=== PATIENT | female | born 1955 | race Caucasian/White ===

== ENCOUNTER 2020-04-23 05:38 | Emergency (ER) | payer MEDICAID, SELFPAY ==
[2020-04-23 05:43] VITALS: BP 188/129; PULSE 114; RESP 26; TEMP 36.6; O2SAT 96; BMI 36.0
[2020-04-23 06:16] VITALS: BP 168/101; PULSE 104; RESP 20; O2SAT 94; O2SAT 97
--- NOTE | 2020-04-23 06:16 | XR_ITS ---
WS: [id number] Portable AP upright chest, 04/23/2020 Clinical Data: cough/dyspnea Comparison: PA and lateral chest, 07/20/2007. Findings: The heart is slightly enlarged. The pulmonary vascularity is increased. No nodules, masses or effusions are seen. No definite pneumonia is present. Monitor leads are on the chest wall. XR/XR chest 1V portable [id number] Impression: Cardiomegaly with pulmonary vascular congestion.
[2020-04-23 06:26] LABS: Basophils # 0.1 10^3/uL (0.0-0.1); Basophils % 0.7 %; Eosinophils # 0.2 10^3/uL (0.0-0.8); Eosinophils % 2.4 %; Hematocrit 40.4 % (37.0-47.0); Hemoglobin 12.9 g/dL (11.5-15.3); Lymphocytes # 2.5 10^3/uL (0.8-4.8); Lymphocytes % 34.8 %; Mean Corpuscular HGB Conc 31.9 g/dL (30.0-36.0); Mean Corpuscular Hemoglobin 28.3 pg (28.0-34.0); Mean Corpuscular Volume 88.6 fL (81-99); Mean Platelet Volume 11.1 fL (7.4-10.4); Monocytes # 0.5 10^3/uL (0.2-0.9); Neutrophils # 3.91 10^3/uL (1.8-7.7); Neutrophils % 54.8 %; Nucleated Red Blood Cells % 0 %; Platelet Count 218 10^3/cmm (130-400); Red Blood Count 4.56 10^6/uL (4.1-5.3); Red Cell Distribution Width 14.2 % (12.1-15.1); White Blood Count 7.1 10^3/uL (4.0-10.0)
[2020-04-23 06:46] LABS: Alanine Aminotransferase 37 U/L (0-33); Alkaline Phosphatase 163 IU/L (35-105); Anion Gap 15.9 (5-19); Aspartate Amino Transferase 37 U/L (0-32); Blood Urea Nitrogen 14 mg/dL (8-23); Calcium 9.4 mg/dL (8.5-10.5); Carbon Dioxide 24 mmol/L (22-29); Chloride 104 mmol/L (98-107); Creatinine Clr Calc Pharmacy 107.4495; Globulin 3.3 g/dL (1.3-4.6); Glucose 132 mg/dL (65-115); Osmolality Calculated 292 mOsm/kg (285-295); Potassium 3.9 mmol/L (3.5-5.1); Sodium 140 mmol/L (136-145); Total Bilirubin 0.3 mg/dL (0.15-1.2); Total Protein 7.3 g/dL (6.6-8.7)
--- NOTE | 2020-04-23 06:47 | CT_ITS ---
WS: [id number] CTA OF THE CHEST WITH PULMONARY EMBOLISM PROTOCOL TECHNIQUE: High-resolution contrast enhanced CTA of the chest with coronal and sagittal reformatted i mages with pulmonary embolism protocol. MIP images are also reviewed. CLINICAL INFORMATION: sudden onset dyspnea COMPARISON: None. DLP: 514.[address] scans at [facility] use at least one of these dose optimization techniques: automat ed exposure control; mA and/or kV adjustment per patient size (includes targeted exams where dose is matched to clinical indication); or iterative reconstruction. FINDINGS: Proximal main pulmonary arteries are normal. Segmental and subsegmental pulmonary arteries are patent . No evidence of pulmonary embolus. Small bilateral pleural effusions right greater than left. Bibasi lar atelectasis. Normal caliber thoracic aorta. No focal consolidation. Prominent AP window and anter ior mediastinal lymph nodes nonspecific but likely reactive. Mild bilateral bronchovascular thickenin g. No axillary lymphadenopathy. Adrenal glands are normal. Fatty atrophy of the pancreas. Small esoph ageal hiatal hernia. Mild thoracic kyphosis with ankylosis thoracic spine. CT/CT angio chest PE protcl [id number] IMPRESSION: 1. Proximal main pulmonary arteries are normal. No evidence of pulmonary embol us. 2. Small right greater than left pleural effusions with bibasilar atelectasis. 3. Prominent AP window and mediastinal lymph nodes nonspecific but likely reac tive. Bilateral bronchovascular thickening. 4. No focal pneumonia.
--- NOTE | 2020-04-23 06:47 | ED_ITS ---
HPI - COVID General: Chief Complaint: COVID symptoms Stated Complaint: sob Time Seen by Provider: 04/23/20 06:02 Triage information: Has fever, cough or shortness of breath . No known COVID + exposure last 14 days History of Present Illness: HPI Narrative: 64-year-old female reports having had onset of flulike symptoms 4 days ago with cough myalgias fever fatigue. She had a 1 or 2 days of diarrhea. The cough is been increasing since then. This morning at 4 AM she suddenly became very short of breath and anxious. She does have a sense of impending doom in the emergency room. She has mild chest discomfort. She denies any vomiting or diarrhea. She is obese hypertensive but she denies being diabetic. She has a history of breast cancer with a lumpectomy and lymph node dissection on the right approximately 18 to 20 years ago. MD complaint: has COVID symptoms Prior covid testing: no COVID 19 common symptoms: positive fever(s), chills, cough, dyspnea, fatigue, body aches, nasal congestion and diarrhea COVID 19 other sytmptoms: positive chest pain Onset (ago): day(s) (4) Pertinent comorbid conditions: hypertension and cancer (History of breast cancer 18 to 20 years ago) Treatment prior to arrival: none COVID Results: SARS-CoV-2 Antigen (Rapid) Negative (Negative) 04/23/20 06:50 04/23/20 Nasal/Oral Coronavirus 2019 PCR Negative 04/23/20 08:51 04/23/20 Review of Systems Const: Reports: fever(s), chills, body aches and fatigue ENMT: Reports: nasal congestion Card: Reports: chest pain Resp: Reports: dyspnea GI: Reports: diarrhea : Denies: flank pain, difficulty voiding, dysuria, urinary frequency or urinary urgency Skin/Breast: Denies: rash or pruritus PFSH ED PFSH: Medical History (Updated 04/23/20 @ 08:55 by Jose Kemp DO) Breast cancer Hypertension Surgical History (Updated 04/23/20 @ 06:51 by Jose Kemp DO) H/O lumpectomy History of lymph node dissection of right axilla Physical Exam Const: COMMON NORMALS: no acute distress GENERAL APPEARANCE: cooperative and comfortable ORIENTATION/CONSCIOUSNESS: Yes awake, Yes oriented to person, Yes oriented to place and Yes oriented to time HENMT: COMMON NORMALS: normocephalic, atraumatic and hearing grossly normal bilaterally HEAD & SCALP: normocephalic and atraumatic Eye: COMMON NORMALS: Equal, round and reactive pupils present, EOMs intact bilaterally, conjunctivae normal and no scleral icterus CONJUNCTIVA: Yes conjunctivae normal PUPIL: Yes Equal, round and reactive pupils present Neck/C-Spine: COMMON NORMALS: full ROM, no lymphadenopathy, supple and no JVD Lymph: LYMPHATIC: no lymphadenopathy noted and no lymphedema noted Resp: EFFORT & INSPECTION: Yes tachypneic AUSCULTATION: rales bilateral and wheezes Cardio: COMMON NORMALS: no JVD, regular rate, regular rhythm and No murmurs present (Cardio) RATE: regular rate RHYTHM: regular rhythm GI: COMMON NORMALS: Soft to palpation and No hepatosplenomegaly present AUSCULTATION: Yes normoactive bowel sounds PALPATION: Yes Soft to palpation, No Tenderness to palpation present (GI), No Guarding due to palpation present (GI) and Yes No hepatosplenomegaly present Extremity: COMMON NORMALS: normal to inspection, capillary refill normal, no clubbing, cyanosis or edema, no calf tenderness and no pedal edema Neuro: SENSORIUM/ORIENTATION: Yes oriented to person, Yes oriented to place and Yes oriented to time Skin: COMMON NORMALS: no rashes or lesions noted GENERAL SKIN EXAM: no rashes or lesions noted Course Vital Signs: Vital signs: Vital Signs Temperature 99.0 F 04/23/20 09:13 Pulse Rate 56 L 04/23/20 09:13 Respiratory Rate 20 H 04/23/20 09:13 Blood Pressure 172/100 04/23/20 09:13 Pulse Oximetry 94 04/23/20 09:13 MDM - COVID MDM Narrative Medical decision making narrative: Discharge home with amlodipine and will follow up with her with the results are available for Covid testing. Asked her to self quarantine until that time follow-up with her blood pressure within the next 1 week. Lab Data Result diagrams: 04/23/20 06:15 04/23/20 06:15 Labs: Lab Results 04/23/20 04/23/20 04/23/20 Range/Units 06:15 06:15 06:15 WBC 7.1 (4.0-10.0) 10^3/uL RBC 4.56 (4.1-5.3) 10^6/uL Hgb 12.9 (11.5-15.3) g/dL Hct 40.4 (37.0-47.0) % MCV 88.6 (81-99) fL MCH 28.3 (28.0-34.0) pg MCHC 31.9 (30.0-36.0) g/dL RDW 14.2 (12.1-15.1) % Plt Count 218 (130-400) 10^3/cmm MPV 11.1 H (7.4-10.4) fL Neut % (Auto) 54.8 % Lymph % (Auto) 34.8 % Dolores % (Auto) 7.0 % Eos % (Auto) 2.4 % Baso % (Auto) 0.7 % Neut # (Auto) 3.91 (1.8-7.7) 10^3/uL Lymph # (Auto) 2.5 (0.8-4.8) 10^3/uL Dolores # (Auto) 0.5 (0.2-0.9) 10^3/uL Eos # (Auto) 0.2 (0.0-0.8) 10^3/uL Baso # (Auto) 0.1 (0.0-0.1) 10^3/uL Nucleated RBC % (auto) 0 % Nucleated RBCs # 0.0 /100WBC D-Dimer 0.67 H (0-0.59) ug/mIFEU Specimen Type Sample Site ABG pH (7.35-7.45) ABG pCO2 (35-45) mmHg ABG pO2 (80.0-100.0) mmHg ABG HCO3 (22-26) mmol/L ABG Base Excess (-2.0-2.0) mmol/L Marquez Test Hematocrit (37-47) % O2 Delivery Device FiO2 % Manager Post ID Sodium 140 (136-145) mmol/L Potassium 3.9 (3.5-5.1) mmol/L Chloride 104 (98-107) mmol/L Carbon Dioxide 24 (22-29) mmol/L Anion Gap 15.9 (5-19) BUN 14 (8-23) mg/dL Creatinine 0.6 (0.5-0.9) mg/dL GFR Calculation 101.0 (90-130) mL/min Glucose 132 H (65-115) mg/dL Calculated Osmolality 292 (285-295) mOsm/kg Calcium 9.4 (8.5-10.5) mg/dL Total Bilirubin 0.3 (0.15-1.2) mg/dL AST 37 H (0-32) U/L ALT 37 H (0-33) U/L Alkaline Phosphatase 163 H (35-105) IU/L Total Protein 7.3 (6.6-8.7) g/dL Albumin 4.0 (3.5-5.2) g/dL Globulin 3.3 (1.3-4.6) g/dL Nasal/Oral COVID-19 PCR Influenza Type A Ag (Negative) Influenza Type B Ag (Negative) SARS-CoV-2 Ag (Rapid) (Negative) 04/23/20 04/23/20 04/23/20 Range/Units 06:25 06:50 07:24 WBC (4.0-10.0) 10^3/uL RBC (4.1-5.3) 10^6/uL Hgb (11.5-15.3) g/dL Hct (37.0-47.0) % MCV (81-99) fL MCH (28.0-34.0) pg MCHC (30.0-36.0) g/dL RDW (12.1-15.1) % Plt Count (130-400) 10^3/cmm MPV (7.4-10.4) fL Neut % (Auto) % Lymph % (Auto) % Dolores % (Auto) % Eos % (Auto) % Baso % (Auto) % Neut # (Auto) (1.8-7.7) 10^3/uL Lymph # (Auto) (0.8-4.8) 10^3/uL Dolores # (Auto) (0.2-0.9) 10^3/uL Eos # (Auto) (0.0-0.8) 10^3/uL Baso # (Auto) (0.0-0.1) 10^3/uL Nucleated RBC % (auto) % Nucleated RBCs # /100WBC D-Dimer (0-0.59) ug/mIFEU Specimen Type Arterial Sample Site Radial, left ABG pH 7.45 (7.35-7.45) ABG pCO2 35.4 (35-45) mmHg ABG pO2 63.6 L (80.0-100.0) mmHg ABG HCO3 24.4 (22-26) mmol/L ABG Base Excess 0.7 (-2.0-2.0) mmol/L Marquez Test Pos Hematocrit 40.8 (37-47) % O2 Delivery Device Room air FiO2 21.0 % Manager Post ID Duner Sodium (136-145) mmol/L Potassium (3.5-5.1) mmol/L Chloride (98-107) mmol/L Carbon Dioxide (22-29) mmol/L Anion Gap (5-19) BUN (8-23) mg/dL Creatinine (0.5-0.9) mg/dL GFR Calculation (90-130) mL/min Glucose (65-115) mg/dL Calculated Osmolality (285-295) mOsm/kg Calcium (8.5-10.5) mg/dL Total Bilirubin (0.15-1.2) mg/dL AST (0-32) U/L ALT (0-33) U/L Alkaline Phosphatase (35-105) IU/L Total Protein (6.6-8.7) g/dL Albumin (3.5-5.2) g/dL Globulin (1.3-4.6) g/dL Nasal/Oral COVID-19 PCR Influenza Type A Ag Negative (Negative) Influenza Type B Ag Negative (Negative) SARS-CoV-2 Ag (Rapid) Negative (Negative) 04/23/20 Range/Units 08:51 WBC (4.0-10.0) 10^3/uL RBC (4.1-5.3) 10^6/uL Hgb (11.5-15.3) g/dL Hct (37.0-47.0) % MCV (81-99) fL MCH (28.0-34.0) pg MCHC (30.0-36.0) g/dL RDW (12.1-15.1) % Plt Count (130-400) 10^3/cmm MPV (7.4-10.4) fL Neut % (Auto) % Lymph % (Auto) % Dolores % (Auto) % Eos % (Auto) % Baso % (Auto) % Neut # (Auto) (1.8-7.7) 10^3/uL Lymph # (Auto) (0.8-4.8) 10^3/uL Dolores # (Auto) (0.2-0.9) 10^3/uL Eos # (Auto) (0.0-0.8) 10^3/uL Baso # (Auto) (0.0-0.1) 10^3/uL Nucleated RBC % (auto) % Nucleated RBCs # /100WBC D-Dimer (0-0.59) ug/mIFEU Specimen Type Sample Site ABG pH (7.35-7.45) ABG pCO2 (35-45) mmHg ABG pO2 (80.0-100.0) mmHg ABG HCO3 (22-26) mmol/L ABG Base Excess (-2.0-2.0) mmol/L Marquez Test Hematocrit (37-47) % O2 Delivery Device FiO2 % Manager Post ID Sodium (136-145) mmol/L Potassium (3.5-5.1) mmol/L Chloride (98-107) mmol/L Carbon Dioxide (22-29) mmol/L Anion Gap (5-19) BUN (8-23) mg/dL Creatinine (0.5-0.9) mg/dL GFR Calculation (90-130) mL/min Glucose (65-115) mg/dL Calculated Osmolality (285-295) mOsm/kg Calcium (8.5-10.5) mg/dL Total Bilirubin (0.15-1.2) mg/dL AST (0-32) U/L ALT (0-33) U/L Alkaline Phosphatase (35-105) IU/L Total Protein (6.6-8.7) g/dL Albumin (3.5-5.2) g/dL Globulin (1.3-4.6) g/dL Nasal/Oral COVID-19 PCR Negative Influenza Type A Ag (Negative) Influenza Type B Ag (Negative) SARS-CoV-2 Ag (Rapid) (Negative) COVID Results: SARS-CoV-2 Antigen (Rapid) Negative (Negative) 04/23/20 06:50 04/23/20 Nasal/Oral Coronavirus 2019 PCR Negative 04/23/20 08:51 04/23/20 Discharge Plan Discharge Patient Disposition: Home Clinical Impression: Hypertension, Suspected severe acute respiratory syndrome coronavirus 2 (SARS-CoV-2) infection Condition: Stable Prescriptions: New amlodipine 5 mg tablet 5 mg PO DAILY Qty: 30 RF: 0 Discharge Orders: Discharge Order (Routine); Ordered 04/23/20 Ordered By: Jose Kemp Activity Restrictions/Additional Instructions: Your tested for COVID-19 today. We asked that you remain self quarantined until the results are back. If you have worsening difficulty with breathing return. Your blood pressure is also elevated you were given a prescription for amlodipine 5 mg daily. You should follow-up with your primary care doctor blood pressure for adjustment of medications if not yet at goal. Coding Level of Care Code ED It Integration Architect for Arias Fwd Exam Comprehensive
[2020-04-23 07:16] VITALS: BP 219/89; PULSE 95; RESP 20; O2SAT 93
--- NOTE | 2020-04-23 07:18 | PC.NURSE ---
Received report assumed care. No changes noted from report. Pt is anxious, informed pt of tests, procedures and reason for IV's.
[2020-04-23 07:29] LABS: Influenza A by IFA Negative (Negative); Influenza B by IFA Negative (Negative)
[2020-04-23 07:34] LABS: ABG PCO2 35.4 mmHg (35-45); ABG PH Result 7.45 (7.35-7.45); Arterial Blood Gas Hematocrit 40.8 % (37-47); Base Excess ABG 0.7 mmol/L (-2.0-2.0); Blood Gas Allen Test Pos; Blood Gas Sample Site Radial, left; Blood Gas Sample Type Arterial; HCO3 ABG 24.4 mmol/L (22-26); Oxygen Device ROOM AIR; PO2 ABG 63.6 mmHg (80.0-100.0)
[2020-04-23 08:09] LABS: SARS Covid-2 Antigen Negative (Negative)
[2020-04-23] MEDS: iohexol 350 mg/mL 100 mL Btl IV (08:13)
[2020-04-23 08:39] VITALS: BP 172/100; PULSE 78; RESP 16; O2SAT 93
[2020-04-23 08:56] VITALS: BP 172/100
[2020-04-23] MEDS: amlodipine 5 mg Tablet PO (08:56)
[2020-04-23] MEDS: cloNIDine 0.1 mg Tablet PO (08:56)
--- NOTE | 2020-04-23 09:05 | ECG_ITS ---
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 Measurements Intervals [place] Rate: 103 P: 59 ME: 163 QRS: -21 QRSD: 127 T: 95 QT: 373 QTc: 488 Interpretive Statements SINUS TACHYCARDIA LEFT BUNDLE BRANCH BLOCK [120+ ms QRS DURATION, 80+ ms Q/S IN V1/V2, 85+ ms R IN I/aVL/V5/V6] No previous ECG available for comparison Electronically Signed On 04-23-2020 10:12:10 MANAGER MATH by Amador Nicolas M.D. [id number] f
[2020-04-23 09:13] VITALS: BP 172/100; PULSE 56; RESP 20; TEMP 37.2; O2SAT 94
[2020-04-23 13:33] LABS: D Dimer 0.67 ug/mIFEU (0-0.59)
[2020-04-25 09:07] LABS: Coronavirus Lab Test PTC Negative
--- NOTE | 2020-04-25 17:05 | PC.NURSE ---
left message for pt to contact ER to receive COVID results
--- NOTE | 2020-04-26 08:48 | PC.NURSE ---
Pt called and notified of negative COVID results.
== END 2020-04-23 09:15 | disposition home or self-care (01) ==
PROVIDERS: Emergency Provider Family Medicine
DX: Z20.828 Contact with and (suspected) exposure to other viral communicable diseases (principal); I10 Essential (primary) hypertension; Z85.3 Personal history of malignant neoplasm of breast
CPT/HCPCS: 12345; 36600; 71045; 71275; 80053; 82803; 85025; 85378; 87426; 87635; 87804; 93005; 99283; 99284; Q9967

== ENCOUNTER 2020-09-27 19:33 | Emergency (ER) | payer MEDICAID, SELFPAY ==
[2020-09-27 19:44] VITALS: BP 165/119; PULSE 116; RESP 18; TEMP 36.7; O2SAT 94; BMI 32.3
--- NOTE | 2020-09-27 20:22 | ECG_ITS ---
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 Measurements Intervals [place] Rate: 112 P: 55 ID: 128 QRS: -10 QRSD: 128 T: 112 QT: 358 QTc: 491 Interpretive Statements SINUS TACHYCARDIA POSSIBLE LEFT ATRIAL ENLARGEMENT [-0.1mV P WAVE IN V1/V2] LEFT BUNDLE BRANCH BLOCK [120+ ms QRS DURATION, 80+ ms Q/S IN V1/V2, 85+ ms R IN I/aVL/V5/V6] Compared to ECG 04/23/2020 06:02:27 No significant changes Electronically Signed On 09-28-2020 10:50:48 CDT by Kenya Powell M.D. [id number] f
--- NOTE | 2020-09-27 20:22 | XRR_ITS ---
PROCEDURE INFORMATION: Exam: XR Chest Exam date and time: 09/27/2020 8:23 PM Age: 65 years old Clinical indication: Dyspnea; Additional info: SOB TECHNIQUE: Imaging protocol: XR of the chest. Views: 1 view. COMPARISON: CR XR chest 1V portable [id number] 04/23/2020 6:22 AM FINDINGS: Lungs: There is indistinctness and mild prominence of the pulmonary vasculature and increased interstitial markings present bilaterally, findings suggesting pulmonary edema. Pleural spaces: Unremarkable. No pleural effusion. No pneumothorax. Heart/Mediastinum: Unremarkable. No cardiomegaly. Bones/joints: Unremarkable. XR/XR chest 1V portable [id number] IMPRESSION: Mild prominence and indistinctness of the pulmonary vasculature and increased interstitial opacities, findings that may represent pulmonary edema.
--- NOTE | 2020-09-27 21:26 | ED_ITS ---
HPI - SOB/Dyspnea General: Chief Complaint: Shortness of Breath/Dyspnea Stated Complaint: DIFFICULTY BREATHING Time Seen by Provider: 09/27/20 21:19 Source: patient Mode of arrival: ambulatory Limitations: no limitations History of Present Illness: HPI Narrative: 65-year-old female who states that she been having increasing shortness of breath over the last 5 days. She states she gets dyspneic anytime she ambulates with any exertion. She states she also gets short of breath when laying flat. She denies any chest pain. She denies any known history of heart or lung issues. She does have chronic high blood pressure states her doctor quit 1 year ago and is she has not been taking her blood pressure medicines and has not seen a physician since then. She denies any cough or fever. MD elicited complaint: shortness of breath Associated symptoms: Deny abdominal pain, chest pain, fever(s), nausea or vomiting Review of Systems Const: Denies: fever(s), chills, body aches or change in appetite Eyes: Denies: blurry vision or eye discomfort ENMT: Denies: throat pain or dental pain Card: Denies: chest pain Resp: Reports: dyspnea GI: Denies: abdominal pain, nausea, vomiting or diarrhea : Denies: dysuria Musc: Denies: neck pain or back pain Skin/Breast: Denies: rash Neuro: Denies: headache(s) Psych: Denies: depression Alfredo/Lymph: Denies: easy bruising All/Imm: Denies: urticaria PFSH ED PFSH: Medical History (Updated 09/28/20 @ 00:40 by Jatinder Izaguirre MD) Breast cancer Hypertension Surgical History (Updated 04/23/20 @ 06:51 by Jose Kemp DO) H/O lumpectomy History of lymph node dissection of right axilla Physical Exam Const: COMMON NORMALS: no acute distress, patient oriented x3 and healthy appearing HENMT: COMMON NORMALS: normocephalic and atraumatic HEAD & SCALP: normoceph alic and atraumatic Eye: COMMON NORMALS: Equal, round and reactive pupils present and EOMs intact bilaterally PUPIL: Yes Equal, round and reactive pupils present Neck/C-Spine: COMMON NORMALS: full ROM and supple Chest: COMMONS NORMALS: normal inspection of the chest and normal palpation of entire chest wall Resp: COMMON NORMALS: normal respiratory effort, No retractions, No use of accessory muscles and clear to auscultation bilaterally AUSCULTATION: clear to auscultation bilaterally Cardio: COMMON NORMALS: regular rate, regular rhythm and No murmurs present (Cardio) RATE: regular rate RHYTHM: regular rhythm GI: COMMON NORMALS: Normal to inspection, nondistended, normoactive bowel sounds present, Soft to palpation, non-tender and no masses PALPATION: Yes Soft to palpation Extremity: COMMON NORMALS: normal to inspection and full ROM Neuro: COMMON NORMALS: patient oriented x3, moves all extremities and no focal motor deficits Psych: COMMON NORMALS: mental status grossly normal, Normal thought process present and cooperative THOUGHT PROCESS: Normal thought process present Skin: COMMON NORMALS: no rashes or lesions noted and no wounds GENERAL SKIN EXAM: no rashes or lesions noted Course Vital Signs: Vital signs: Vital Signs Temperature 98.1 F 09/27/20 19:44 Pulse Rate 87 09/28/20 00:48 Respiratory Rate 19 H 09/28/20 00:48 Blood Pressure 181/108 09/28/20 00:48 Pulse Oximetry 99 09/28/20 00:48 MDM - SOB/Dyspnea MDM Narrative: Medical decision making narrative: Patient presents here with dyspnea. Her scan here shows a possible pneumonia. Her BNP is little elevated with her symptoms of concern of possible mild CHF. I spoke to her and recommended admission for echo. She is refusing admission states she feels much improved after the Lasix here. We will start her on Lasix at home along with an antibiotic. We will get her follow-up outpatient. I informed her if she has any worsening she is return immediately. She understands agrees to plan. Lab Data: Labs: Lab Results 09/27/20 09/27/20 09/27/20 Range/Units 21:39 21:39 21:39 WBC 9.5 (4.0-10.0) 10^3/ uL RBC 4.49 (4.1-5.3) 10^6/u L Hgb 12.7 (11.5-15.3) g/dL Hct 39.8 (37.0-47.0) % MCV 88.6 (81-99) fL MCH 28.3 (28.0-34.0) pg MCHC 31.9 (30.0-36.0) g/dL RDW 14.5 (12.1-15.1) % Plt Count 243 (130-400) 10^3/c mm MPV 11.3 H (7.4-10.4) fL Neut % (Auto) 57.9 % Lymph % (Auto) 31.6 % Power % (Auto) 8.1 % Eos % (Auto) 1.4 % Baso % (Auto) 0.8 % Neut # (Auto) 5.52 (1.8-7.7) 10^3/u L Lymph # (Auto) 3.0 (0.8-4.8) 10^3/u L Power # (Auto) 0.8 (0.2-0.9) 10^3/u L Eos # (Auto) 0.1 (0.0-0.8) 10^3/u L Baso # (Auto) 0.1 (0.0-0.1) 10^3/u L Nucleated RBC % (a uto) 0 % Nucleated RBCs # 0.0 /100WBC D-Dimer 0.92 H (0-0.59) ug/mIFE U Sodium 144 (136-145) mmol/L Potassium 4.2 (3.5-5.1) mmol/L Chloride 108 H (98-107) mmol/L Carbon Dioxide 24 (22-29) mmol/L Anion Gap 16.2 (5-19) BUN 16 (8-23) mg/dL Creatinine 0.6 (0.5-0.9) mg/dL GFR Calculation 100.6 (90-130) mL/min Glucose 116 H (65-115) mg/dL Calculated Osmolal ity 300 H (285-295) mOsm/k g Calcium 9.1 (8.5-10.5) mg/dL Total Bilirubin 0.4 (0.15-1.2) mg/dL AST 30 (0-32) U/L ALT 48 H (0-33) U/L Alkaline Phosphata se 155 H (35-105) IU/L Troponin T Baselin e (0-10) ng/L NT-Pro-B Natriuret Pep 1606 H (0-125) pg/mL Total Protein 7.1 (6.6-8.7) g/dL Albumin 4.2 (3.5-5.2) g/dL Globulin 2.9 (1.3-4.6) g/dL 09/27/20 Range/Units 21:39 WBC (4.0-10.0) 10^3/ uL RBC (4.1-5.3) 10^6/u L Hgb (11.5-15.3) g/dL Hct (37.0-47.0) % MCV (81-99) fL MCH (28.0-34.0) pg MCHC (30.0-36.0) g/dL RDW (12.1-15.1) % Plt Count (130-400) 10^3/c mm MPV (7.4-10.4) fL Neut % (Auto) % Lymph % (Auto) % Power % (Auto) % Eos % (Auto) % Baso % (Auto) % Neut # (Auto) (1.8-7.7) 10^3/u L Lymph # (Auto) (0.8-4.8) 10^3/u L Power # (Auto) (0.2-0.9) 10^3/u L Eos # (Auto) (0.0-0.8) 10^3/u L Baso # (Auto) (0.0-0.1) 10^3/u L Nucleated RBC % (a uto) % Nucleated RBCs # /100WBC D-Dimer (0-0.59) ug/mIFE U Sodium (136-145) mmol/L Potassium (3.5-5.1) mmol/L Chloride (98-107) mmol/L Carbon Dioxide (22-29) mmol/L Anion Gap (5-19) BUN (8-23) mg/dL Creatinine (0.5-0.9) mg/dL GFR Calculation (90-130) mL/min Glucose (65-115) mg/dL Calculated Osmolal ity (285-295) mOsm/k g Calcium (8.5-10.5) mg/dL Total Bilirubin (0.15-1.2) mg/dL AST (0-32) U/L ALT (0-33) U/L Alkaline Phosphata se (35-105) IU/L Troponin T Baselin e 13 H (0-10) ng/L NT-Pro-B Natriuret Pep (0-125) pg/mL Total Protein (6.6-8.7) g/dL Albumin (3.5-5.2) g/dL Globulin (1.3-4.6) g/dL Imaging Data^: CXR: Attestation: I personally reviewed and interpreted this imaging study as follows: My impression: no acute abnormality EKG Data^: EKG 1: Attestation: I personally reviewed and interpreted this EKG as follows: EKG Interpretation Date: 09/27/20 EKG interpretation time: 21:33 Interpretation: sinus tach hr [address] or t wave abnormalities qrs 128 qtc 425 Discharge Plan Discharge Patient Disposition: Home Clinical Impression: Hypertension Qualifiers: Hypertension type: essential hypertension Qualified Code(s): I10 - Essential (primary) hypertension Pneumonia Qualifiers: Pneumonia type: due to unspecified organism Laterality: right Lung location: upper lobe of lung Qualified Code(s): J18.9 - Pneumonia, unspecified organism Condition: Stable Prescriptions: New Lasix 40 mg tablet 40 mg PO DAILY Qty: 30 RF: 0 doxycycline hyclate 100 mg capsule 100 mg PO BID 7 Days Qty: 14 RF: 0 No Action amlodipine 5 mg tablet 5 mg PO DAILY Qty: 30 RF: 0 Discharge Orders: Discharge ED (Routine); Ordered 09/28/20 Ordered By: Jatinder Izaguirre Discharge Diet: Advance as tolerated Discharge Activity: Resume usual activity Patient Instructions: Bacterial Pneumonia (ED), Hypertension (ED) Coding Level of Care Code ED Hospital Cleaner for Chg Fwd Exam Comprehensive
[2020-09-27 21:45] VITALS: BP 179/131; PULSE 105; RESP 17; O2SAT 91
--- NOTE | 2020-09-27 21:45 | PC.NURSE ---
EKG taken and given to Dr. Izaguirre
[2020-09-27 21:48] LABS: Basophils # 0.1 10^3/uL (0.0-0.1); Basophils % 0.8 %; Eosinophils # 0.1 10^3/uL (0.0-0.8); Eosinophils % 1.4 %; Hematocrit 39.8 % (37.0-47.0); Hemoglobin 12.7 g/dL (11.5-15.3); Lymphocytes % 31.6 %; Mean Corpuscular HGB Conc 31.9 g/dL (30.0-36.0); Mean Corpuscular Hemoglobin 28.3 pg (28.0-34.0); Mean Corpuscular Volume 88.6 fL (81-99); Mean Platelet Volume 11.3 fL (7.4-10.4); Monocytes # 0.8 10^3/uL (0.2-0.9); Monocytes % 8.1 %; Neutrophils # 5.52 10^3/uL (1.8-7.7); Neutrophils % 57.9 %; Nucleated Red Blood Cells % 0 %; Platelet Count 243 10^3/cmm (130-400); Red Blood Count 4.49 10^6/uL (4.1-5.3); Red Cell Distribution Width 14.5 % (12.1-15.1); White Blood Count 9.5 10^3/uL (4.0-10.0)
[2020-09-27 22:10] LABS: D Dimer 0.92 ug/mIFEU (0-0.59)
--- NOTE | 2020-09-27 22:11 | CTR_ITS ---
PROCEDURE INFORMATION: Exam: CTA Chest With Contrast Exam date and time: 09/27/2020 11:10 PM Age: 65 years old Clinical indication: Shortness of breath; Prior surgery; Surgery date: 6+ months; Surgery type: R lymph nodes; Patient HX: HX of breast CA C/O SOB x 5 days TECHNIQUE: Imaging protocol: Computed tomographic angiography of the chest with contrast. 3D rendering (Not supervised by radiologist): MIP and/or 3D reconstructed images were created by the technologist. Radiation optimization: All CT scans at this facility use at least one of these dose optimization techniques: automated exposure control; mA and/or kV adjustment per patient size (includes targeted exams where dose is matched to clinical indication); or iterative reconstruction. Contrast material: OMNI 350; Contrast volume: 73 ml; Contrast route: INTRAVENOUS (IV); COMPARISON: CT angio chest PE protcl [id number] 04/23/2020 8:10 AM RADIATION DOSE METRICS: Total DLP (mGy-cm): 554.17 FINDINGS: Pulmonary arteries: Normal. No pulmonary emboli. Aorta: Unremarkable. No aortic aneurysm. No aortic dissection. Lungs: Patchy ground-glass opacities are seen region. This appears new compared with 04/23/2020. Subtle ground-glass opacities are seen adjacent to the major fissure the right and superimposed over the pleural effusions bilaterally appearing stable compared with 04/23/2020. These findings likely represent bilateral atelectasis although developing right apical interstitial pneumonia cannot be excluded. Pleural spaces: There are stable bilateral pleural effusions present as well. Heart: Unremarkable. No cardiomegaly. No pericardial effusion. Lymph nodes: There are multiple mildly prominent mediastinal and hilar lymph nodes present. These appear stable compared with 04/23/2020. Bones/joints: Unremarkable. No acute fracture. Soft tissues: Unremarkable. CT/CT angio chest PE protcl [id number] IMPRESSION: 1. There is no evidence for pulmonary emboli. 2. Stable prominent mediastinal lymph nodes . 3. Stable bilateral pleural effusions and superimposing atelectasis or parenchymal or pleural scarring. 4. New patchy ground-glass opacity seen in the right apical region may represent superimposing right apical interstitial pneumonia. Radiation Dose CTDIVOL = (mGy): DLP = 554.17 (mGy-cm)
[2020-09-27 22:17] LABS: Troponin(5th) Baseline 13 ng/L (0-10)
[2020-09-27 22:18] VITALS: BP 170/126; PULSE 102; RESP 14; O2SAT 93
[2020-09-27 22:25] LABS: Alanine Aminotransferase 48 U/L (0-33); Albumin Level 4.2 g/dL (3.5-5.2); Alkaline Phosphatase 155 IU/L (35-105); Anion Gap 16.2 (5-19); Aspartate Amino Transferase 30 U/L (0-32); Blood Urea Nitrogen 16 mg/dL (8-23); Calcium 9.1 mg/dL (8.5-10.5); Carbon Dioxide 24 mmol/L (22-29); Chloride 108 mmol/L (98-107); Creatinine Clr Calc Pharmacy 107.4681; Globulin 2.9 g/dL (1.3-4.6); Glomerular Filtration Rate 100.6 mL/min (90-130); Glucose 116 mg/dL (65-115); NT Pro B Type Natriuretic Pept 1606 pg/mL (0-125); Osmolality Calculated 300 mOsm/kg (285-295); Potassium 4.2 mmol/L (3.5-5.1); Sodium 144 mmol/L (136-145); Total Bilirubin 0.4 mg/dL (0.15-1.2); Total Protein 7.1 g/dL (6.6-8.7)
[2020-09-27 22:53] VITALS: BP 174/117; PULSE 99; RESP 17; O2SAT 93
--- NOTE | 2020-09-27 23:24 | ECG_ITS ---
[facility] Test Date: 2020-09-27 Pat Name: Ellie Matthews Department: Room: Gender: Female C.O.D. 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 Measurements Intervals Sidell Rate: 102 P: 120 ID: [id number] QRS: 194 QRSD: 134 T: 109 QT: 388 QTc: 506 Interpretive Statements SINUS TACHYCARDIA ARM LEADS REVERSED [INVERTED P AND QRS IN I] INTRAVENTRICULAR CONDUCTION DELAY ABNORMAL RHYTHM ECG Compared to ECG 09/27/2020 21:33:56 Left bundle-branch block no longer present Electronically Signed On 09-28-2020 10:49:48 CDT by Kenya Powell M.D. [id number]
[2020-09-27] MEDS: iohexol 350 mg/mL 100 mL Btl IV (23:35)
[2020-09-27] MEDS: FUROsemide 10 mg/mL SDV 4mL 40 MG IVP (23:38)
[2020-09-27 23:40] VITALS: BP 184/122; PULSE 108; RESP 21; O2SAT 96
[2020-09-28 00:48] VITALS: BP 181/108; PULSE 87; RESP 19; O2SAT 99
--- NOTE | 2020-10-02 15:24 | DCPLANNER ---
plumbing manager had message to speak with patient about getting established with a primary care physician. plumbing manager spoke with patient, was told that patient would like to get established with a primary care physician. plumbing manager called [facility], spoke with Bonita, gave clinic patients information. A follow up appointment was scheduled for Thursday, October 15, 2020 at 2:[address] Ayala. plumbing manager called patient, spoke with husbands and gave him the appointment information.
--- NOTE | 2020-12-31 07:28 | DCPLANNER ---
Patient had a follow up appointment scheduled for 10.15.20 at [facility] with Dr. Ayala to establish care - patient did attend appointment.
== END 2020-09-28 00:48 | disposition home or self-care (01) ==
PROVIDERS: Emergency Provider Emergency Medicine
DX: J18.9 Pneumonia, unspecified organism (principal); I10 Essential (primary) hypertension; Z85.3 Personal history of malignant neoplasm of breast
CPT/HCPCS: 71045; 71275; 80053; 83880; 84484; 85025; 85378; 93005; 96374; 96375; 99284; J1940; Q9967

== ENCOUNTER 2020-12-23 13:25 | Outpatient (CLI) | payer MEDICAID, SELFPAY ==
--- NOTE | 2020-12-23 13:30 | USCV_ITS ---
Ellie Matthews Age: 65 Gender: F : 1955 Exam Date: 12/23/2020 13:55 Ordering Phys: Kathy Reese MD ([email or web address]) Technologist: Salome Regan Exam Location: [facility] Indication: shortness of breath BP: / HR: Rhythm: Sinus Technical Quality: Fair MEASUREMENTS (Male / Female) Normal Values 2D ECHO LV Diastolic Diameter PLAX 3.5 cm 4.2 - 5.9 / 3.9 - 5.3 cm LV Systolic Diameter PLAX 2.3 cm IVS Diastolic Thickness 1.2 cm 0.6 - 1.0 / 0.6 - 0.9 cm IVS Systolic Thickness 1.5 cm LVPW Diastolic Thickness 0.9 cm 0.6 - 1.0 / 0.6 - 0.9 cm LVPW Systolic Thickness 1.6 cm LVOT Diameter 2.0 cm LV Ejection Fraction 2D Teich 64.1 % LV Ejection Fraction MOD 2C 55.5 % LV Ejection Fraction 2C AL 58.0 % LA Diameter 3.0 cm LA Width 3.4 cm LA Height 5.4 cm RA Width 3.6 cm RA Height 4.5 cm Aorta at Sinotubular Diameter 2.9 cm M-MODE LV Diastolic Diameter MM 6.4 cm 4.2 - 5.9 / 3.9 - 5.3 cm LV Systolic Diameter MM 5.3 cm LV Ejection Fraction MM Teich 36.5 % IVS Diastolic Thickness MM 0.3 cm 0.6 - 1.0 / 0.6 - 0.9 cm IVS Systolic Thickness MM 0.9 cm LVPW Diastolic Thickness MM 0.8 cm 0.6 - 1.0 / 0.6 - 0.9 cm LVPW Systolic Thickness MM 1.3 cm Aortic Annulus Diameter 2.9 cm LA Ao Ratio MM 1.0 MV E Point Septal Separation 1.4 cm DOPPLER AV Peak Velocity 154.3 cm/s LVOT Peak Velocity 113.0 cm/s AV Area Cont Eq vti 2.0 cm squared AV Area Cont Eq pk 2.3 cm squared MV Peak Velocity 142.0 cm/s MV Area PHT 3.6 cm squared Mitral E to A Ratio 1.2 MV E' Velocity 55.0 cm/s Mitral E to MV E' Ratio 10.3 Mitral E to LV E' Lateral Ratio 7.2 Mitral E to LV E' Septal Ratio 17.9 TR Peak Velocity 80.0 cm/s TR Peak Gradient 2.6 mmHg Right Atrial Pressure 3.0 mmHg Pulmonary Artery Systolic Pressu 5.6 mmHg PV Peak Velocity 70.0 cm/s RV Acceleration Time 0.1 s RV Ejection Time 0.3 s RV AcT/ET 0.4 FINDINGS Left Ventricle Mildly increased left ventricular cavity size. Severely decreased left ventricular systolic function. Global left ventricular hypokinesis. Left ventricular ejection fraction is estimated at 36 %. Grade II/IV diastolic dysfunction, moderately elevated filling pressures. Right Ventricle The right ventricle is normal in size and function. Right Atrium The right atrium is normal in size. Left Atrium The left atrium is normal in size. Mitral Valve Moderately thickened mitral valve. Moderate mitral annular calcification. No mitral valve stenosis. Moderate mitral valve regurgitation. Aortic Valve Severe aortic valve calcification. Mild aortic valve stenosis, mean gradient 5.7 mmHg, BANDAR 2 cm squared.Mild aortic valve regurgitation. Tricuspid Valve Mild tricuspid valve regurgitation. Pulmonic Valve Structurally normal pulmonic valve without significant stenosis. There is no pulmonic regurgitation. Pericardium Normal pericardium without effusion. Aorta Normal ascending aorta dimension. CONCLUSIONS 1-Mildly increased left ventricular cavity size. Severely decreased left ventricular systolic function. Global left ventricular hypokinesis. Left ventricular ejection fraction is estimated at 36 %. Grade II/IV diastolic dysfunction, moderately elevated filling pressures. 2-Moderately thickened mitral valve. Moderate mitral annular calcification. No mitral valve stenosis. Moderate mitral valve regurgitation. 3-Severe aortic valve calcification. Mild aortic valve stenosis, mean gradient 5.7 mmHg, BANDAR 2 cm squared.Mild aortic valve regurgitation. 4-Mild tricuspid valve regurgitation. 5-There is no pericardial effusion. 6-Right atrial pressure is around 5 mm of mercury. 7-There are no prior echocardiogram studies to compare. Kathy Reese MD (Electronically Signed) Final Date: 23 December 2020 17:18 S
== END 2020-12-23 13:26 | disposition home or self-care (01) ==
LOC: US 13:29
PROVIDERS: PCP Family Medicine Adult Medicine; Visit Provider Internal Medicine Cardiovascular Disease
DX: R06.02 Shortness of breath (principal); I08.3 Combined rheumatic disorders of mitral, aortic and tricuspid valves
CPT/HCPCS: 93306

== ENCOUNTER 2021-02-04 10:37 | Outpatient (CLI) | payer MEDICAID, SELFPAY ==
[2021-02-04 11:09] VITALS: BMI 33.9
--- NOTE | 2021-02-04 11:29 | NMCV_ITS ---
NM bassam perf SPECT r/s* [id number] Ellie Matthews Age: 65 Gender: F : 1955 Exam Date: 02/04/2021 11:29 Ordering Phys: Kathy Reese MD ([email or web address]) Technologist: FIORDALIZA Ann Exam Location: [facility] Indications: CHEST PAIN STRESS TEST Please see separate stress test report in [facility] for full findings IMAGE PROTOCOL Rest/Stress 1 Lexiscan Day Radiopharmaceutical Dose (mCi) Administration Site Administered by Rest: Tc-99m 10.8 IV FIORDALIZA Rice Sestamibi Stress:Tc-99m 32.3 IV FIORDALIZA Rice Sestamibi Rest: 04-Feb-2021 60 Discovery 630 Stress: 04-Feb-2021 30 Discovery 630 0.4mg Lexiscan. Images obtained in supine and prone position. SPECT RESULTS Technical Quality: Excellent Raw Data Analysis: Normal Image Corrections: No attenuation or motion correction applied Summed Stress Score: 3 Summed Rest Score: 4 Summed Difference Score: 1 PERFUSION FINDINGS Large area of persistent decrease tracer uptake noted in basal to distal anterior and anteroseptal wall suggestive of old myocardial infarction versus scarring FUNCTIONAL RESULTS (calculated via Gated SPECT) Stress Image LV EF (%): 32 Stress EDV (mL):130 TID: 1.03 Stress ESV (mL):88 Rest Image LV EF (%): 32 FUNCTIONAL FINDINGS: There appeared to be anterior anteroseptal hypokinesis. Severely decreased ejection fraction 32% IMPRESSIONS Large area of old myocardial infarction versus scarring noted in basal to distal anterior and anteroseptal wall without significant bee-infarct ischemia. EKG segment will be documented separately. Kathy Reese MD (Electronically Signed) Final Date: 04 February 2021 20:46 S
--- NOTE | 2021-02-04 11:29 | ECG_ITS ---
[facility] Test Date: 2021-02-04 Pat Name: Ellie Matthews Department: Room: Gender: Female Biometrics Instructor: : 1955 Requested By: Kathy Reese Order Number: [id number] Amber MD: KATHY REESE Interpretive Statements NAME OF STUDY: LEXISCAN SESTAMIBI STRESS TEST INDICATION: Chest Pain, NOTE: Please note that this is the electrocardiogram portion of the Lexiscan/Sestamibi stress test. The perfusion scan will be documented separately. DATA: Baseline heart rate was 85 beats per minute. Baseline blood pressure was 136/83 millimeters of mercury. Target heart rate was 156. Maximum heart rate achieved was 107. which was 68 % of the predicted target heart rate. Maximum blood pressure was 187/83 millimeters of mercury. The reason for ending the test was completion of the protocol. The patient did not experience any symptoms. ELECTROCARDIOGRAM: BASELINE: Sinus rhythm. Normal axis. Interventricular conduction delay, possible old anterior wall myocardial infarction. Otherwise, no ST-T changes suggestive of ischemia noted. No arrhythmia noted. EXERCISE: After Lexiscan injection, no ST-T changes suggestive of ischemic noted. No arrhythmia noted. CONCLUSION: Please note due to baseline abnormality of the EKG specificity and sensitivity of the EKG portion of LexiScan MIBI stress test will be low 1. EKG not suggestive of ischemia 2. Lexiscan injection unremarkable. 3. Perfusion scan will be documented separately. Electronically Signed On 02-04-2021 21:16:41 CDT by KATHY REESE [id number]
[2021-02-04] MEDS: regadenoson 0.4 Mg/5 ml Syringe IVP (12:33)
[2021-02-04 12:44] VITALS: BP 137/74; PULSE 90
== END 2021-02-04 10:38 | disposition home or self-care (01) ==
LOC: CDL 10:39
PROVIDERS: PCP Family Medicine Adult Medicine; Visit Provider Internal Medicine Cardiovascular Disease
DX: R07.9 Chest pain, unspecified (principal); I25.2 Old myocardial infarction
CPT/HCPCS: 78452; 93017; A9500; J2785

== ENCOUNTER → 2021-03-13 10:13 | Outpatient (BNVA) | payer MEDICAID, SELFPAY | PROVIDERS: PCP Family Medicine Adult Medicine; Visit Provider Family Medicine Adult Medicine | DX: I11.0 Hypertensive heart disease with heart failure (principal); I50.22 Chronic systolic (congestive) heart failure; E66.9 Obesity, unspecified; I42.8 Other cardiomyopathies; R05.9 Cough, unspecified | CPT/HCPCS: 80053; 80061; 83036; 84443; 85025 ==

== ENCOUNTER 2021-03-27 10:28 | Outpatient (CLI) | payer MEDICAID, SELFPAY ==
--- NOTE | 2021-03-27 11:00 | MM_ITS ---
WS: [id number] BILATERAL DIGITAL DIAGNOSTIC MAMMOGRAM MAMMOGRAPHY WITH CAD CLINICAL INFORMATION: Hx of right Breast CA and surgery COMPARISON: TECHNIQUE: Bilateral CC, MLO, and ML views. FINDINGS: Scattered fibroglandular densities bilaterally. Volume loss right breast with prior lumpectomy. Paren chymal scarring in the upper right breast. Ovoid nodule along the left posterior nipple line measurin g 5 mm mid depth best seen on the MLO view. Recommend spot compression views and ultrasound. Right breast is unremarkable and unchanged. Vascular calcification. MM/[place] [id number] IMPRESSION: BI-RADS: 0-Incomplete: Need additional imaging evaluation FOLLOW UP: Need Additional Imaging Recommend left breast diagnostic mammography and ultrasound for further evaluat ion.
== END 2021-03-27 10:29 | disposition home or self-care (01) ==
PROVIDERS: PCP Family Medicine Adult Medicine; Visit Provider Family Medicine Adult Medicine
DX: Z85.3 Personal history of malignant neoplasm of breast (principal)
CPT/HCPCS: 77066

== ENCOUNTER 2021-05-22 09:32 | Outpatient (CLI) | payer MEDICARE, MEDICAID, SELFPAY ==
--- NOTE | 2021-05-22 09:30 | MM_ITS ---
WS: [id number] Exam: [place] [id number] Date/Time of Exam: 05/22/2021 9:48 AM Reason For Exam: Ovoid nodule along the left posterior nipple line Impression spot images of the left breast are obtained in the MLO projection. A straight 90 degree la teral view of the left breast is included in the series. The left breast is somewhat nodular in character however no discrete suspicious mass is noted. No julia picious calcification or architectural distortion. Recommendations: Six-month follow-up left mammogram for surveillance. MM/[place] [id number] IMPRESSION: 1. No definite suspicious lesion identified. BI-RADS Category 3.
--- NOTE | 2021-05-22 10:15 | US_ITS ---
WS: [id number] Exam: US breast LT limited* [id number] Date/Time of Exam: 05/22/2021 9:44 AM Reason For Exam: abnormal left breast mammogram Sonographic evaluation of the left breast shows several tiny subcentimeter cysts in the 2 to 3:00 pos ition. There were no suspicious solid mass or nodule is identified with ultrasound. Recommendations: Six-month follow-up left mammogram to identify any change. US/US breast LT limited* [id number] IMPRESSION: 1. Several subcentimeter cysts identified at the 2 to 3:00 position in the left breast. These measure in the range of the 3 to 5 mm. 2. No suspicious solid mass or nodule was identified. BI-RADS Category 2.
== END 2021-05-22 09:33 | disposition home or self-care (01) ==
LOC: RADSHAW 09:36
PROVIDERS: PCP Family Medicine Adult Medicine; Visit Provider Family Medicine Adult Medicine
DX: R92.8 Other abnormal and inconclusive findings on diagnostic imaging of breast (principal); N60.02 Solitary cyst of left breast
CPT/HCPCS: 76642; 77065

== ENCOUNTER → 2021-06-19 11:24 | Outpatient (BNVA) | payer MEDICARE, MEDICAID, SELFPAY | PROVIDERS: PCP Family Medicine Adult Medicine; Visit Provider Family Medicine Adult Medicine | DX: E11.9 Type 2 diabetes mellitus without complications (principal); I10 Essential (primary) hypertension | CPT/HCPCS: 80053; 83036 ==

== ENCOUNTER → 2021-09-15 12:48 | Outpatient (BNVA) | payer MEDICAID, SELFPAY | PROVIDERS: PCP Family Medicine Adult Medicine; Visit Provider Nurse Practitioner Family | DX: I11.0 Hypertensive heart disease with heart failure (principal); I50.22 Chronic systolic (congestive) heart failure; I42.8 Other cardiomyopathies | CPT/HCPCS: 99214 ==

== ENCOUNTER 2021-11-24 10:49 | Outpatient (CLI) | payer MEDICARE, MEDICAID, SELFPAY ==
--- NOTE | 2021-11-24 11:09 | MM_ITS ---
WS: [id number] DIAGNOSTIC LEFT DIGITAL BREAST TOMOSYNTHESIS MAMMOGRAPHY WITH CAD. HISTORY: 6 MO F/U COMPARISON: 05/22/2021, 03/27/2021 Technique: CC, MLO and ML views. LEFT MLO spot. Breast composition: There are scattered areas of fibroglandular density. The appearance of the breas t is similar to the prior examination. No increasing mass or distortion. No ultrasound will be perfor med today as no abnormality was noted on the prior study. Overall stable and slightly improved appear ance of the parenchymal pattern. MM/[place] [id number] IMPRESSION: BI-RADS: 3-Probably Benign FOLLOW UP: 6 Month Follow-up Patient to return in 6 months for her annual mammogram. Mild asymmetry in the L EFT breast will be reevaluated at that time.
== END 2021-11-24 10:50 | disposition home or self-care (01) ==
LOC: RADSHAW 10:55
PROVIDERS: PCP Family Medicine Adult Medicine; Visit Provider Family Medicine Adult Medicine
DX: C50.919 Malignant neoplasm of unspecified site of unspecified female breast (principal); N60.02 Solitary cyst of left breast
CPT/HCPCS: 77061

== ENCOUNTER → 2021-12-17 09:02 | Outpatient (BNVA) | payer MEDICARE, MEDICAID, SELFPAY | PROVIDERS: PCP Family Medicine Adult Medicine; Visit Provider Family Medicine Adult Medicine | DX: I10 Essential (primary) hypertension (principal); E11.69 Type 2 diabetes mellitus with other specified complication; E78.5 Hyperlipidemia, unspecified; E78.2 Mixed hyperlipidemia | CPT/HCPCS: 80053; 80061; 83036; 85025 ==

== ENCOUNTER 2022-01-30 12:15 | Emergency (ER) | payer MEDICARE, MEDICAID, SELFPAY ==
[2022-01-30] VITALS (7 sets, daily range): BP systolic 111–137; BP diastolic 75–91; PULSE 76–101; RESP 14–18; TEMP 36.2–37.1; O2SAT 95–98; BMI 32.1
--- NOTE | 2022-01-30 12:38 | W.ED.DIZZY ---
HPI - Dizziness General: Chief Complaint: Dizziness Stated Complaint: dizzy Time Seen by Provider: 01/30/22 12:38 History of Present Illness: HPI Narrative: Ms. Matthews is a 66-year-old lady with history of cardiomyopathy, hypertension, hyperlipidemia, diabetes who presents to the emergency department with generalized illness. She reports symptom onset approximately 1 week ago with nonproductive cough and generalized malaise. Additionally she has had intermittent frontal headache and today she endorses lightheadedness with presyncopal and unsteady type feeling. Denies associated numbness or tingling. No spinning sensation or vertigo. Symptoms are worse with ambulation but do not go away with rest. Intensity symptoms is moderate. Course is intermittent. No other specific changes in health, exacerbating, or alleviating factors identified. Onset (ago): week(s) Timing: gradual onset Severity: moderate Description: lightheadedness, off-balance and near-syncope Context: recent illness History of similar symptoms: No Exacerbating factors: movement/ambulation Associated symptoms: Reports cough, headache(s) and malaise Review of Systems General: Reports: 10 or more systems reviewed and unremarkable except in HPI and below Const: Reports: malaise Neuro: Reports: headache(s) PFSH ED PFSH: Medical History Anxiety about health Breast cancer Rt breast surgery about 20 years ago Cardiomyopathy Chronic coughing Diabetes Elevated glucose Hyperlipidemia associated with type 2 diabetes mellitus Hypertension Obesity (BMI 30.0-34.9) Primary atypical pneumonia Pulmonary edema cardiac cause SOBOE (shortness of breath on exertion) Systolic heart failure Surgical History H/O lumpectomy History of lymph node dissection of right axilla Social History Smoking and tobacco status: never smoked Alcohol intake: never Marital status: Number of children: 2 Number of grandchildren: 5 Current occupational status: disabled Physical Exam Const: COMMON NORMALS: patient oriented x3 and alert GENERAL APPEARANCE: cooperative and well developed HENMT: COMMON NORMALS: normocephalic and atraumatic HEAD & SCALP: normocephalic and atraumatic Eye: COMMON NORMALS: conjunctivae normal CONJUNCTIVA: Yes conjunctivae normal SCLERA: sclerae normal Neck/C-Spine: COMMON NORMALS: supple GENERAL: Yes trachea midline Resp: COMMON NORMALS: clear to auscultation bilaterally EFFORT & INSPECTION: Yes able to speak in complete sentences AUSCULTATION: clear to auscultation bilaterally Cardio: COMMON NORMALS: regular rate and regular rhythm RATE: regular rate RHYTHM: regular rhythm GI: COMMON NORMALS: Soft to palpation PALPATION: Yes Soft to palpation and No Tenderness to palpation present (GI) PERCUSSION: normal to percussion Extremity: GENERAL: Yes normal exam except as noted and No edema Neuro: COMMON NORMALS: patient oriented x3, CN's II-XII intact bilaterally, moves all extremities, no focal motor deficits and no sensory deficits noted SENSORIUM/ORIENTATION: Yes alert and No Orientation impaired Psych: COMMON NORMALS: mental status grossly normal and Normal thought process present THOUGHT PROCESS: Normal thought process present Course ED course: - Patient was seen and evaluated by me at bedside - Patient placed on cardiac monitors, IV access obtained - Initial evaluation notable for exam as above. - Labs and xrays personally interpreted by me. EKG notable for sinus rhythm with nonspecific interventricular conduction delay, no STEMI - Fluids, analgesia given - Labs notable for no leukocytosis, hemoglobin normal. Metabolic panel with elevated creatinine, no electrolyte Mauri requiring intervention. Delta troponin negative. - Imaging notable for head CT with no acute intracranial hemorrhage or mass. Chest x-ray with radiology read of possible hazy opacity in the lateral aspect of the right midlung. - Upon serial reexamination after treatment the patient was improved. -Given history of cardiomyopathy and degree of elevated creatinine I recommended inpatient admission with patient declined. As an alternative agreed to repeat fluid bolus and repeat metabolic panel. Creatinine improving though I still recommended inpatient evaluation. - Based on patient history, evaluation, and testing as interpreted the most likely cause of the patient's condition is dehydration with JULIANE of uncertain etiology. - The results of ED evaluation were discussed with the patient including prescriptions and/or symptomatic cares (if applicable) including appropriate and responsible use, need for repeat labs, followup plan, and return precautions. The patient verbalized understanding and felt safe for discharge. - Patient discharged in satisfactory condition. Note: Click bubbles or prepopulated schaeffer in note writing are used for assistance with data collection and billing and are inherently more limited than narrative and other text portions of this note. Please use narrative for additional clinical history and defer to narrative/free test for any case of contradictory information. If information appears in only free text or click bubble it should be considered present or absent as reported. Please contact note typewriter assembler for clarifications of clinical information or contradictory information. MDM is a brief summary, contradictory or erroneous seeming information should be clarified and full note should be reviewed. Vital Signs: Vital signs: Vital Signs Temperature 98.7 F 01/30/22 18:15 Pulse Rate 85 01/30/22 18:15 Respiratory Rate 14 01/30/22 18:15 Blood Pressure 137/82 01/30/22 18:15 Pulse Oximetry 95 01/30/22 18:15 Oxygen Delivery Me thod 01/30/22 18:09 MDM - Dizziness Medical Decision Making 66-year-old lady presenting with generalized symptoms including lightheadedness. Patient has nonfocal neurologic exam. Labs notable for JULIANE. Recommended admission which patient inclined. After 2 L of fluid BMP improving. Discussed need for repeat labs and strict return precautions. Medical Records I reviewed the patient's medical records. Lab Data I reviewed the patient's lab results. : 01/30/22 12:45 01/30/22 17:05 Radiology Impressions Chest X-Ray 01/30/22 12:59 IMPRESSION: 1. Possible hazy opacity in the lateral aspect of the mid right chest. Consider CT chest to better characterize. 2. Cardiomegaly. Head CT 01/30/22 12:59 IMPRESSION: 1. Mild presumed small vessel ischemic disease of indeterminate age. 2. Lacunar infarct in the left basal ganglia of indeterminate age. 3. No acute intracranial hemorrhage. Laboratory Results WBC 8.6 10^3/uL (4.0-10.0) 01/30/22 12:45 RBC 5.03 10^6/uL (4.1-5.3) 01/30/22 12:45 Hgb 14.3 g/dL (11.5-15.3) 01/30/22 12:45 Hct 44.3 % (37.0-47.0) 01/30/22 12:45 MCV 88.1 fl (81-99) 01/30/22 12:45 MCH 28.4 pg (28.0-34.0) 01/30/22 12:45 MCHC 32.3 g/dL (30.0-36.0) 01/30/22 12:45 RDW 14.1 % (12.1-15.1) 01/30/22 12:45 Plt Count 233 10^3/cmm (130-400) 01/30/22 12:45 MPV 11.2 fL (7.4-10.4) H 01/30/22 12:45 Neut % (Auto) 50.8 % 01/30/22 12:45 Lymph % (Auto) 37.4 % 01/30/22 12:45 [place] % (Auto) 9.5 % 01/30/22 12:45 Eos % (Auto) 1.4 % 01/30/22 12:45 Baso % (Auto) 0.7 % 01/30/22 12:45 Neut # (Auto) 4.34 10^3/uL (1.8-7.7) 01/30/22 12:45 Lymph # (Auto) 3.2 10^3/uL (0.8-4.8) 01/30/22 12:45 [place] # (Auto) 0.8 10^3/uL (0.2-0.9) 01/30/22 12:45 Eos # (Auto) 0.1 10^3/uL (0.0-0.8) 01/30/22 12:45 Baso # (Auto) 0.1 10^3/uL (0.0-0.1) 01/30/22 12:45 Nucleated RBC % (auto) 0 % 01/30/22 12:45 Nucleated RBCs # 0.0 /100WBC 01/30/22 12:45 Sodium 138 mmol/L (136-145) 01/30/22 17:05 Potassium 3.8 mmol/L (3.5-5.1) 01/30/22 17:05 Chloride 102 mmol/L (98-107) 01/30/22 17:05 Carbon Dioxide 26 mmol/L (22-29) 01/30/22 17:05 Anion Gap 13.8 (5-19) 01/30/22 17:05 BUN 29 mg/dL (8-23) H 01/30/22 17:05 Creatinine 1.6 mg/dL (0.5-0.9) H 01/30/22 17:05 GFR Calculation 32.3 mL/min (90-130) L 01/30/22 17:05 Glucose 88 mg/dL (65-115) 01/30/22 17:05 Calculated Osmolality 291 mOsm/kg (285-295) 01/30/22 17:05 Lactate 1.1 mmol/L (0.5-2.2) 01/30/22 12:45 Calcium 9.2 mg/dL (8.5-10.5) 01/30/22 17:05 Magnesium 1.8 mg/dL (1.7-2.3) 01/30/22 12:45 Total Bilirubin 0.3 mg/dL (0.15-1.2) 01/30/22 12:45 AST 24 U/L (0-32) 01/30/22 12:45 ALT 26 U/L (0-33) 01/30/22 12:45 Alkaline Phosphatase 142 U/L (35-105) H 01/30/22 12:45 Troponin T Baseline 20 ng/L (0-10) H 01/30/22 12:45 Troponin T 120 Minute 20.45 ng/L (0-10) H 01/30/22 15:23 Delta Troponin T 0.45 ABS# (0-10) 01/30/22 15:23 C-Reactive Protein 3.5 mg/L (0.0-4.9) 01/30/22 12:45 NT-Pro-B Natriuret Pep 300 pg/mL (0-125) H 01/30/22 12:45 Total Protein 7.5 g/dL (6.6-8.7) 01/30/22 12:45 Albumin 4.2 g/dL (3.5-5.2) 01/30/22 12:45 Globulin 3.3 g/dL (1.3-4.6) 01/30/22 12:45 Procalcitonin 0.06 ng/mL (0-0.5) 01/30/22 12:45 TSH 1.05 uIU/mL (0.27-4.20) 01/30/22 12:45 Urine Color Yellow (Yellow) 01/30/22 13:20 Urine Appearance Cloudy (CLEAR) 01/30/22 13:20 Urine pH 5 (5-7) 01/30/22 13:20 Ur Specific [place] 1.020 (1.005-1.030) 01/30/22 13:20 Urine Protein Neg (Negative) 01/30/22 13:20 Urine Glucose (UA) Norm (Normal) 01/30/22 13:20 Urine Ketones Negative (Negative) 01/30/22 13:20 Urine Blood Trace (Negative) H 01/30/22 13:20 Urine Nitrate Negative (Negative) 01/30/22 13:20 Urine Bilirubin Neg (Negative) 01/30/22 13:20 Urine Urobilinogen Norm mg/dL (Negative) 01/30/22 13:20 Ur Leukocyte Esterase 2+ (Negative) H 01/30/22 13:20 Urine RBC 0-4 /hpf (0-2) H 01/30/22 13:20 Urine WBC 55-80 /hpf (0-5) H 01/30/22 13:20 Ur Squamous Epith Cells 40-55 /hpf (0-5) H 01/30/22 13:20 Ur Transition Epith Cell 5-10 /hpf 01/30/22 13:20 Amorphous Sediment Not Reportable 01/30/22 13:20 Urine Bacteria 3+ /hpf (NONE) H 01/30/22 13:20 Urine Mucus 1+ /hpf 01/30/22 13:20 SARS-CoV-2 Ag (Rapid) Negative (Negative) 01/30/22 13:45 Discharge Plan Discharge Patient Disposition: Home Clinical Impression: Malaise and fatigue, Feeling light headed, JULIANE (acute kidney injury) Condition: Stable Prescriptions: No Action metformin 500 mg tablet 500 mg PO DAILY Qty: 30 5RF glyburide 1.25 mg tablet 1.25 mg PO DAILY Qty: 30 5RF carvedilol 6.25 mg tablet 6.25 mg PO BID Qty: 60 6RF Rx Instructions: must administer with a meal/food lisinopril 10 mg tablet 10 mg PO BID Qty: 90 5RF Rx Instructions: take 2 tablets in the morning and 1 tablet in the evening. aspirin [Adult Low Dose Aspirin] 81 mg tablet,delayed release (DR/EC) 81 mg PO DAILY Qty: 90 3RF sertraline 50 mg tablet 50 mg PO DAILY Qty: 30 3RF spironolactone 50 mg tablet 50 mg PO QAM Qty: 30 5RF loratadine 10 mg capsule 10 mg PO DAILY Qty: 30 5RF Lasix 40 mg tablet 40 mg PO .COMPLEX Rx Instructions: 40 mg PO 40mg in AM, 20mg in PM; atorvastatin 40 mg tablet 40 mg PO DAILY Qty: 30 5RF Discharge Orders: Discharge ED (Routine); Ordered 01/30/22 Ordered By: Mazin Rodriguez Referrals: Kel Escobar MD [Primary Care Provider] - Discharge Diet: Usual diet Discharge Activity: Increase activity as tolerated Patient Instructions: Acute Kidney Injury (DC) Activity Restrictions/Additional Instructions: Thank you for visiting the emergency department. You were seen evaluated for generalized symptoms. The exact cause of your symptoms is unclear though you were found to have a significantly elevated creatinine. The exact cause of this is unclear as well. I recommended inpatient evaluation which you are declining at this time. Please follow-up with your primary care provider on Tuesday. I recommend repeat laboratory studies for evaluation of creatinine. I will also message case management for follow-up with cardiology given history of cardiomyopathy. Please return to the emergency department for worsening symptoms, chest pain, shortness of breath, decreased urine output, or anything else that you are concerned about and feel needs emergency department evaluation. Coding Level of Care Code ED Manufacturing Scheduler for Chg Fwd Exam Comprehensive
--- NOTE | 2022-01-30 12:55 | PC.NURSE ---
Patient here with c/o feeling dizzy, states it is has been going on for several days, is worse when she moves around and improves with rest. Denies any other symptoms
--- NOTE | 2022-01-30 12:59 | CTR_ITS ---
PROCEDURE INFORMATION: Exam: CT Head Without Contrast Exam date and time: 01/30/2022 2:32 PM Age: 66 years old Clinical indication: Pain, dizziness and headache. Presyncope. TECHNIQUE: Imaging protocol: Computed tomography of the head without contrast. Radiation optimization: All CT scans at this facility use at least one of these dose optimization techniques: automated exposure control; mA and/or kV adjustment per patient size (includes targeted exams where dose is matched to clinical indication); or iterative reconstruction. COMPARISON: No relevant prior studies available. RADIATION DOSE METRICS: Total DLP (mGy-cm): 9974.48 FINDINGS: Brain: No acute intracranial hemorrhage. No mass, mass effect or midline shift. There is mild presumed small vessel ischemic disease of indeterminate age. Lacunar infarct in the left basal ganglia of indeterminate age. The posterior fossa is grossly unremarkable; however, it is partially obscurred by beam hardening artifact. Cerebral ventricles: The ventricles are normal in configuration. Paranasal sinuses: Small retention cysts or polyps in the left maxillary sinus. Mild mucosal thickening in the right maxillary sinus. Mastoid air cells: No mastoid effusion. Orbital cavities: The visualized orbits are unremarkable. Bones/joints: No acute fracture is seen. Soft tissues: No significant scalp soft tissue swelling. Vasculature: There is no evidence of acute large vessel infarct. CT/CT head wo con* [id number] IMPRESSION: 1. Mild presumed small vessel ischemic disease of indeterminate age. 2. Lacunar infarct in the left basal ganglia of indeterminate age. 3. No acute intracranial hemorrhage.
--- NOTE | 2022-01-30 12:59 | XRR_ITS ---
PROCEDURE INFORMATION: Exam: XR Chest Exam date and time: 01/30/2022 1:50 PM Age: 66 years old Clinical indication: Cough and weakness. TECHNIQUE: Imaging protocol: Radiologic exam of the chest. Views: 1 view. COMPARISON: CR (CHEST, ) 09/27/2020 9:36 PM FINDINGS: Lungs: There is possible hazy opacity in the lateral aspect of the mid right chest. Pleural spaces: No pleural effusion. No pneumothorax. Heart/Mediastinum: Cardiac silhouette is unchanged. No gross evidence of pneumomediastinum. Bones/joints: No gross fracture. XR/XR chest 1V portable [id number] IMPRESSION: 1. Possible hazy opacity in the lateral aspect of the mid right chest. Consider CT chest to better characterize. 2. Cardiomegaly.
--- NOTE | 2022-01-30 13:10 | ECG_ITS ---
[facility] Test Date: 2022-01-30 Pat Name: Ellie Matthews Department: Room: Gender: Female Rn Ante Partum: : 1955 Requested By: Mazin Rodriguez Order Number: [id number] Amber MD: Kenya Powell M.D. Measurements Intervals [place] Rate: 76 P: 39 GA: 162 QRS: -1 QRSD: 137 T: 112 QT: 432 QTc: 488 Interpretive Statements SINUS RHYTHM INTRAVENTRICULAR CONDUCTION DELAY [130+ ms QRS DURATION] Compared to ECG 09/27/2020 23:19:37 Sinus tachycardia no longer present Electronically Signed On 01-30-2022 13:31:39 CDT by Kenya Powell M.D. [email or web address] centerVital Farmsmer[facility].[employer] [place]/store/[id number]
[2022-01-30] MEDS: sodium chloride 0.9% 1,000 ML 999 ML IV ×2 (13:12→16:10)
[2022-01-30 13:13] LABS: Basophils # 0.1 10^3/uL (0.0-0.1); Basophils % 0.7 %; Eosinophils # 0.1 10^3/uL (0.0-0.8); Eosinophils % 1.4 %; Hematocrit 44.3 % (37.0-47.0); Hemoglobin 14.3 g/dL (11.5-15.3); Lymphocytes # 3.2 10^3/uL (0.8-4.8); Lymphocytes % 37.4 %; Mean Corpuscular HGB Conc 32.3 g/dL (30.0-36.0); Mean Corpuscular Hemoglobin 28.4 pg (28.0-34.0); Mean Corpuscular Volume 88.1 fl (81-99); Mean Platelet Volume 11.2 fL (7.4-10.4); Monocytes # 0.8 10^3/uL (0.2-0.9); Monocytes % 9.5 %; Neutrophils # 4.34 10^3/uL (1.8-7.7); Neutrophils % 50.8 %; Nucleated Red Blood Cells % 0 %; Platelet Count 233 10^3/cmm (130-400); Red Blood Count 5.03 10^6/uL (4.1-5.3); Red Cell Distribution Width 14.1 % (12.1-15.1); White Blood Count 8.6 10^3/uL (4.0-10.0)
[2022-01-30] MEDS: ketorolac 30 mg/mL INJ 15 MG IVP (13:13)
[2022-01-30 13:29] LABS: Lactate (Lactic Acid level) 1.1 mmol/L (0.5-2.2)
[2022-01-30 13:30] LABS: Troponin(5th) Baseline 20 ng/L (0-10)
[2022-01-30 13:36] LABS: NT Pro B Type Natriuretic Pept 300 pg/mL (0-125); Procalcitonin 0.06 ng/mL (0-0.5); Thyroid Stimulating Hormone 1.05 uIU/mL (0.27-4.20)
[2022-01-30 13:47] LABS: Alanine Aminotransferase 26 U/L (0-33); Albumin Level 4.2 g/dL (3.5-5.2); Alkaline Phosphatase 142 U/L (35-105); Aspartate Amino Transferase 24 U/L (0-32); Blood Urea Nitrogen 28 mg/dL (8-23); C Reactive Protein 3.5 mg/L (0.0-4.9); Calcium 10.5 mg/dL (8.5-10.5); Carbon Dioxide 27 mmol/L (22-29); Chloride 96 mmol/L (98-107); Globulin 3.3 g/dL (1.3-4.6); Glucose 108 mg/dL (65-115); Magnesium 1.8 mg/dL (1.7-2.3); Osmolality Calculated 290 mOsm/kg (285-295); Sodium 137 mmol/L (136-145); Total Bilirubin 0.3 mg/dL (0.15-1.2); Total Protein 7.5 g/dL (6.6-8.7)
[2022-01-30 13:59] LABS: Add Urine Microscopic? YES; Bilirubin Urine Neg (Negative); Blood Urine Trace (Negative); Glucose Urine UA Norm (Normal); Ketones Urine Negative (Negative); Leukocyte Esterase Urine 2+ (Negative); Nitrate Urine Negative (Negative); Protein Urine Neg (Negative); Urine Appearance Cloudy (CLEAR); Urine Color Yellow (Yellow); Urobilinogen Urine Norm (Negative); pH Urine 5 (5-7)
[2022-01-30 14:00] LABS: RBC Urine 0-4 /hpf (0-2); Squamous Epithelial Cell Urine 40-55 /hpf (0-5); WBC Urine 55-80 /hpf (0-5)
[2022-01-30 14:01] LABS: Add Urine Culture? No; Bacteria Urine 3+ /hpf; Mucus Urine 1+ /hpf
[2022-01-30 14:13] LABS: SARS Covid-2 Antigen Negative (Negative)
--- NOTE | 2022-01-30 15:00 | ECG_ITS ---
[facility] Test Date: 2022-01-30 Pat Name: Ellie Matthews Department: Room: Gender: Female Hospice [employer]: : 1955 Requested By: Mazin Rodriguez Order Number: [id number] Amber MD: Kenya Powell M.D. Measurements Intervals [place] Rate: 79 P: 59 RI: 189 QRS: -3 QRSD: 138 T: 94 QT: 430 QTc: 494 Interpretive Statements SINUS RHYTHM POSSIBLE LEFT ATRIAL ENLARGEMENT [-0.1mV P-WAVE IN V1/V2] INTRAVENTRICULAR CONDUCTION DELAY [130+ ms QRS DURATION] Compared to ECG 01/30/2022 13:10:40 No significant changes Electronically Signed On 02-01-2022 8:11:49 CDT by Kenya Powell M.D. [id number]
[2022-01-30 15:53] LABS: Troponin 5 2HR 20.45 ng/L (0-10)
[2022-01-30 15:55] LABS: Troponin 5 2HR Delta 0.45 ABS# (0-10)
[2022-01-30 17:41] LABS: Anion Gap 13.8 (5-19); Blood Urea Nitrogen 29 mg/dL (8-23); Calcium 9.2 mg/dL (8.5-10.5); Carbon Dioxide 26 mmol/L (22-29); Chloride 102 mmol/L (98-107); Glomerular Filtration Rate 32.3 mL/min (90-130); Glucose 88 mg/dL (65-115); Osmolality Calculated 291 mOsm/kg (285-295); Potassium 3.8 mmol/L (3.5-5.1); Sodium 138 mmol/L (136-145)
== END 2022-01-30 18:24 | disposition home or self-care (01) ==
PROVIDERS: Emergency Provider Emergency Medicine; PCP Family Medicine Adult Medicine
DX: R53.81 Other malaise (principal); R53.83 Other fatigue; R42 Dizziness and giddiness; N17.9 Acute kidney failure, unspecified; Z79.82 Long term (current) use of aspirin; Z20.822 Contact with and (suspected) exposure to COVID-19; Z85.3 Personal history of malignant neoplasm of breast; E11.9 Type 2 diabetes mellitus without complications; E78.5 Hyperlipidemia, unspecified; I11.0 Hypertensive heart disease with heart failure; I50.20 Unspecified systolic (congestive) heart failure
CPT/HCPCS: 70450; 71045; 80048; 80053; 81001; 83605; 83735; 83880; 84145; 84443; 84484; 85025; 86140; 87426; 93005; 96374; 99285; J1885; J7030

== ENCOUNTER → 2022-03-16 11:08 | Outpatient (BNVA) | payer MEDICARE, MEDICAID, SELFPAY | PROVIDERS: PCP Family Medicine Adult Medicine; Visit Provider Internal Medicine Cardiovascular Disease | DX: I42.8 Other cardiomyopathies (principal); I11.0 Hypertensive heart disease with heart failure; I50.22 Chronic systolic (congestive) heart failure; E11.69 Type 2 diabetes mellitus with other specified complication; E78.5 Hyperlipidemia, unspecified; Z79.84 Long term (current) use of oral hypoglycemic drugs | CPT/HCPCS: 99214 ==

== ENCOUNTER → 2022-03-18 09:08 | Outpatient (BNVA) | payer MEDICARE, MEDICAID, SELFPAY | PROVIDERS: PCP Family Medicine Adult Medicine; Visit Provider Family Medicine Adult Medicine | DX: I11.0 Hypertensive heart disease with heart failure (principal); I50.22 Chronic systolic (congestive) heart failure; E11.69 Type 2 diabetes mellitus with other specified complication; E78.5 Hyperlipidemia, unspecified; E66.9 Obesity, unspecified | CPT/HCPCS: 80053; 80061; 83036; 83721; 83735; 83880; 85025 ==

== ENCOUNTER 2022-03-25 16:30 | Observation (INO) | payer MEDICARE, MEDICAID, SELFPAY ==
[2022-03-25] VITALS (13 sets, daily range): BP systolic 115–170; BP diastolic 36–112; PULSE 81–132; RESP 15–26; TEMP 36.4–36.8; O2SAT 93–100; BMI 27.4
--- NOTE | 2022-03-25 16:42 | XRR_ITS ---
PROCEDURE INFORMATION: Exam: XR Cervical Spine Exam date and time: 03/25/2022 5:06 PM Age: 66 years old Clinical indication: Neck pain; Additional info: Neck pain/trauma TECHNIQUE: Imaging protocol: Radiologic exam of the cervical spine. Views: 2 or 3 views. COMPARISON: [place] [id number] 05/22/2021 9:53 AM FINDINGS: Bones/joints: No acute fracture. Normal alignment. Soft tissues: Unremarkable. XR/XR cervical spine 3V* [id number] IMPRESSION: No acute findings.
--- NOTE | 2022-03-25 16:43 | XRR_ITS ---
PROCEDURE INFORMATION: Exam: XR Chest Exam date and time: 03/25/2022 5:04 PM Age: 66 years old Clinical indication: Cough and shortness of breath; Additional info: Dyspnea/cough TECHNIQUE: Imaging protocol: Radiologic exam of the chest. Views: 1 view. COMPARISON: CR XR chest 1V portable [id number] 01/30/2022 1:50 PM FINDINGS: Lungs: Hyperinflated lungs. No consolidation. Pleural spaces: No pleural effusion. No pneumothorax. Heart/Mediastinum: No cardiomegaly. Bones/joints: Visualized osseous structures are intact. XR/XR chest 1V portable [id number] IMPRESSION: No acute findings.
--- NOTE | 2022-03-25 16:44 | CTR_ITS ---
PROCEDURE INFORMATION: Exam: CT Head Without Contrast Exam date and time: 03/25/2022 5:48 PM Age: 66 years old Clinical indication: Injury or trauma; Other: Hit in back of head with tree limb; Blunt trauma (contusions or hematomas); Without loss of consciousness; Additional info: Normal TECHNIQUE: Imaging protocol: Computed tomography of the head without contrast. Radiation optimization: All CT scans at this facility use at least one of these dose optimization techniques: automated exposure control; mA and/or kV adjustment per patient size (includes targeted exams where dose is matched to clinical indication); or iterative reconstruction. COMPARISON: CT head wo con* [id number] 01/30/2022 2:32 PM RADIATION DOSE METRICS: Total DLP (mGy-cm): 1016.38 FINDINGS: Brain: No hemorrhage. No edema. Mild diffuse cerebral atrophy and sequela of chronic small vessel ischemic disease. No mass effect. Cerebral ventricles: No ventriculomegaly. Paranasal sinuses: Visualized sinuses are unremarkable. No fluid levels. Mastoid air cells: Visualized mastoid air cells are well aerated. Bones/joints: Unremarkable. No acute fracture. Soft tissues: Posterior scalp contusion. CT/CT head wo con* [id number] IMPRESSION: No acute intracranial abnormality.
--- NOTE | 2022-03-25 16:45 | ED_ITS ---
HPI - Head Injury General: Chief complaint: Head Injury Stated complaint: TREE LIMB HIT HEAD/ AFIB W/RVR Time Seen by Provider: 03/25/22 16:31 Source: patient Mode of arrival: ambulatory History of Present Illness: 66-year-old female who presents to the emergency room with complaints of head injury. Patient was helping her cut down some trees evidently a limb came down and hit her in the back of the head. She denied having loss consciousness she has no lacerations. She was also found to be in A. fib with RVR. She is not previously been known to have A. fib she is on carvedilol but she is not on any anticoagulants. She is diabetic as well she did take all of her medications today. MD Complaint: head injury Onset (ago): minute(s) Place: home Loss of Consciousness: no Location of injury: occipital Severity: mild Radiation: none Other Injuries: none Associated symptoms: Deny amnesia, confusion, nausea, neck pain, numbness, syncope, tingling, vertigo, visual changes, vomiting or weakness Review of Systems Const: Denies: fever(s), chills, body aches, change in appetite, fatigue or malaise ENMT: Denies: throat pain, ear or mastoid pain, nasal discharge or nasal congestion Card: Denies: chest pain, palpitations, irregular heart rhythm or syncope Resp: Denies: dyspnea, productive cough or non-productive cough GI: Denies: abdominal pain, nausea or vomiting : Denies: flank pain, difficulty voiding, dysuria, urinary frequency or urinary urgency Musc: Denies: neck pain Skin/Breast: Denies: rash or pruritus Neuro: Reports: headache(s); Denies: numbness in extremities, weakness in extremities, vertigo or confusion PFSH ED PFSH: Medical History Anxiety about health Breast cancer Rt breast surgery about 20 years ago Cardiomyopathy Chronic coughing Diabetes Elevated glucose Hyperlipidemia associated with type 2 diabetes mellitus Hypertension Influenza vaccine needed New onset a-fib Obesity (BMI 30.0-34.9) Primary atypical pneumonia Pulmonary edema cardiac cause SOBOE (shortness of breath on exertion) Systolic heart failure Surgical History H/O lumpectomy History of lymph node dissection of right axilla Social History Smoking and tobacco status: never smoked Second hand smoke exposure: No Smoking risk assessment/counseling performed?: No Alcohol intake: never Desire information about alcohol rehabilitation?: No Counseling given: No Desire information about substance/drug rehabilitation?: No Counseling given: No Marital status: Number of children: 2 Number of grandchildren: 5 Current occupational status: disabled Physical Exam Const: GENERAL APPEARANCE: cooperative and comfortable ORIENTATION/CONSCIOUSNESS: Yes awake, Yes oriented to person, Yes oriented to place and Yes oriented to time HENMT: COMMON NORMALS: normocephalic, hearing grossly normal bilaterally, external ears normal, EAC's normal, TM's normal bilaterally, Normal nasal mucous membranes and turbinates present, moist oral mucous membranes and oropharynx normal HEAD & SCALP: normocephalic NOSE: Normal nasal mucous membranes and turbinates present EXTERNAL EAR: Yes external ears normal EXTERNAL AUDITORY CANAL: EAC's normal TYMPANIC MEMBRANE: TM's normal bilaterally Eye: COMMON NORMALS: Equal, round and reactive pupils present, EOMs intact bilaterally, conjunctivae normal and no scleral icterus CONJUNCTIVA: Yes conjunctivae normal PUPIL: Yes Equal, round and reactive pupils present Neck/C-Spine: COMMON NORMALS: full ROM, no lymphadenopathy, supple and no JVD Resp: COMMON NORMALS: normal respiratory effort, No retractions, No use of accessory muscles and clear to auscultation bilaterally AUSCULTATION: clear to auscultation bilaterally Cardio: COMMON NORMALS: no JVD and No murmurs present (Cardio) RATE: tachycardic RHYTHM: abnormal rhythm irregularly irregular GI: COMMON NORMALS: Soft to palpation and No hepatosplenomegaly present AUSCULTATION: Yes normoactive bowel sounds PALPATION: Yes Soft to palpation, No Tenderness to palpation present (GI), No Guarding due to palpation present (GI) and Yes No hepatosplenomegaly present Extremity: COMMON NORMALS: normal to inspection, capillary refill normal, no clubbing, cyanosis or edema, no calf tenderness and no pedal edema Neuro: SENSORIUM/ORIENTATION: Yes oriented to person, Yes oriented to place and Yes oriented to time Skin: COMMON NORMALS: no rashes or lesions noted GENERAL SKIN EXAM: no rashes or lesions noted Course Vital Signs: Vital signs: Vital Signs Temperature 97.6 F 03/26/22 08:00 Pulse Rate 85 03/26/22 11:16 Respiratory Rate 18 03/26/22 11:16 Blood Pressure 112/76 03/26/22 08:00 Pulse Oximetry 96 03/26/22 11:16 Oxygen Delivery Me thod 03/26/22 09:01 MDM - Head Injury Medcial Decision Making Labs and imaging reviewed. No fracture no intracranial bleeding patient awake and alert. On arrival patient was in A. fib with RVR. She was started on diltiazem IV push and then a drip rate was well controlled. Will admit patient discussed with hospitalist orders written Differential Diagnosis Likely concussion without loss of consciousness, epidural hematoma, closed head injury, subarachnoid hematoma, subdural hematoma and concussion with loss of consciousness Medical Records I reviewed the patient's medical records. Lab Data I reviewed the patient's lab results. : 03/25/22 16:45 03/26/22 02:22 Radiology Impressions Cervical Spine X-Ray 03/25/22 16:42 IMPRESSION: No acute findings. Chest X-Ray 03/25/22 16:43 IMPRESSION: No acute findings. Head CT 03/25/22 16:44 IMPRESSION: No acute intracranial abnormality. Laboratory Results WBC 8.1 10^3/uL (4.0-10.0) 03/25/22 16:45 RBC 4.64 10^6/uL (4.1-5.3) 03/25/22 16:45 Hgb 13.4 g/dL (11.5-15.3) 03/25/22 16:45 Hct 41.5 % (37.0-47.0) 03/25/22 16:45 MCV 89.4 fl (81-99) 03/25/22 16:45 MCH 28.9 pg (28.0-34.0) 03/25/22 16:45 MCHC 32.3 g/dL (30.0-36.0) 03/25/22 16:45 RDW 14.3 % (12.1-15.1) 03/25/22 16:45 Plt Count 215 10^3/cmm (130-400) 03/25/22 16:45 MPV 11.2 fL (7.4-10.4) H 03/25/22 16:45 Lymph % (Auto) Not Reportable 03/25/22 16:45 [place] % (Auto) Not Reportable 03/25/22 16:45 Lymph # (Auto) Not Reportable 03/25/22 16:45 [place] # (Auto) Not Reportable 03/25/22 16:45 Total Counted 100 (0-100) 03/25/22 16:45 Atypical Lymphs % 4.0 % (0-5) 03/25/22 16:45 Absolute Neutrophils 4.7 10^3/cmm (1.4-6.5) 03/25/22 16:45 Segmented Neutrophils 58 % 03/25/22 16:45 Abs Segm Neuts (Man) 4.7 10/cmm (1.6-7.1) 03/25/22 16:45 Band Neutrophils 0.0 % 03/25/22 16:45 Abs Band Neuts (Man) 0.0 10^3/cmm (0.0-1.2) 03/25/22 16:45 Absolute Lymphocytes 2.8 10^3/cmm (1.2-3.4) 03/25/22 16:45 Lymphocytes (Manual) 30 % 03/25/22 16:45 Monocytes (Manual) 7.0 % 03/25/22 16:45 Absolute Monocytes 0.6 10^3/cmm (0.1-0.6) 03/25/22 16:45 Eosinophils (Manual) 1 % 03/25/22 16:45 Absolute Eosinophils 0.0 10^3/cmm (0.0-0.7) 03/25/22 16:45 Basophils (Manual) 0.0 % 03/25/22 16:45 Absolute Basophils 0.0 10^3/cmm (0.0-0.2) 03/25/22 16:45 Platelet Estimate Normal (Normal) 03/25/22 16:45 D-Dimer 0.67 ug/mIFEU (0-0.59) H 03/25/22 18:18 Sodium 138 mmol/L (136-145) 03/25/22 16:45 Potassium 3.8 mmol/L (3.5-5.1) 03/25/22 16:45 Chloride 101 mmol/L (98-107) 03/25/22 16:45 Carbon Dioxide 21 mmol/L (22-29) L 03/25/22 16:45 Anion Gap 19.8 (5-19) H 03/25/22 16:45 BUN 18 mg/dL (8-23) 03/25/22 16:45 Creatinine 1.3 mg/dL (0.5-0.9) H 03/25/22 16:45 GFR Calculation 41.1 mL/min (90-130) L 03/25/22 16:45 Glucose 127 mg/dL (65-115) H 03/25/22 16:45 Calculated Osmolality 289 mOsm/kg (285-295) 03/25/22 16:45 Calcium 10.1 mg/dL (8.5-10.5) 03/25/22 16:45 Troponin T Baseline 52 ng/L (0-10) H 03/25/22 16:45 Troponin T 120 Minute 51.77 ng/L (0-10) H 03/25/22 18:43 Delta Troponin T -0.23 ABS# (0-10) L 03/25/22 18:43 TSH 0.83 uIU/mL (0.27-4.20) 03/25/22 18:43 Discharge Plan Discharge Patient Disposition: Admitted As Inpatient Admit Provider: Kathy Santiago Clinical Impression: Atrial fibrillation with rapid ventricular response, Closed head injury Condition: Stable Discharge Diet: Cardiac Discharge Activity: Increase activity as tolerated Coding Level of Care Code ED Grain Drier Operator for Arias Davis
--- NOTE | 2022-03-25 16:52 | ECG_ITS ---
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 Measurements Intervals [place] Rate: 123 P: [place]: QRS: 60 QRSD: 134 T: 236 QT: 336 QTc: 481 Interpretive Statements ATRIAL FIBRILLATION WITH RAPID VENTRICULAR RESPONSE INTRAVENTRICULAR CONDUCTION DELAY [130+ ms QRS DURATION] Compared to ECG 01/30/2022 15:32:37 Sinus rhythm no longer present Electronically Signed On 03-25-2022 20:52:56 CDT by Kenya Powell M.D. [email or web address] health [id number]
[2022-03-25 16:55] LABS: Hematocrit 41.5 % (37.0-47.0); Hemoglobin 13.4 g/dL (11.5-15.3); Mean Corpuscular HGB Conc 32.3 g/dL (30.0-36.0); Mean Corpuscular Hemoglobin 28.9 pg (28.0-34.0); Mean Corpuscular Volume 89.4 fl (81-99); Mean Platelet Volume 11.2 fL (7.4-10.4); Platelet Count 215 10^3/cmm (130-400); Red Blood Count 4.64 10^6/uL (4.1-5.3); Red Cell Distribution Width 14.3 % (12.1-15.1); White Blood Count 8.1 10^3/uL (4.0-10.0)
[2022-03-25] MEDS: dilTIAZem 5 mg/mL SDV 5 mL 20 MG IVP (16:55)
[2022-03-25 17:33] LABS: Absolute Neutrophil 4.7 10^3/cmm (1.4-6.5); Absolute Segmented Neutrophil 4.7 10/cmm (1.6-7.1); Eosinophils 1 %; Lymphocytes 30 %; Lymphocytes Absolute 2.8 10^3/cmm (1.2-3.4); Monocytes Absolute 0.6 10^3/cmm (0.1-0.6); Platelet Estimate Normal (Normal); Segmented Neutrophils 58 %; Total Cells Counted 100 (0-100)
[2022-03-25 17:37] LABS: Troponin(5th) Baseline 52 ng/L (0-10)
--- NOTE | 2022-03-25 18:11 | PM.HP ---
Providers/Chief Complaint Primary Care Provider: Kel Escobar MD Chief Complaint: TREE LIMB HIT HEAD/ AFIB W/RVR History of Present Illness Ellie Matthews is a 66 year old female who has history of systolic congestive heart failure reduced action fraction cardiomyopathy presented to the hospital after getting hit by a branch of a tree when she was helping her . In the ER she was diagnosed with A. fib RVR which is new onset. Patient is stating that she was helping her when a tree fell on back of her head that prompted her visit to the ER this diagnosis A. fib RVR is a new diagnosis she has never been diagnosed with such rhythm By the time I evaluated the patient she was in sinus rhythm hemodynamically stable rate in 80s She is denying chest pain, fever, shortness of breath, diarrhea she is endorsing feeling very hungry and thirsty Review of Systems Const: Denies: fever(s) Eyes: Denies: change in vision ENMT: Denies: throat pain Card: Denies: chest pain Resp: Denies: dyspnea GI: Denies: abdominal pain : Denies: flank pain Musc: Denies: neck pain Skin/Breast: Denies: rash Neuro: Denies: headache(s) Psych: Reports: anxiety Endo: Denies: polyuria Alfredo/Lymph: Denies: easy bruising All/Imm: Denies: urticaria Medications/Allergies Home Medications Medication Instructions Recorded Confirmed Last Taken Type spironolactone 50 mg tablet 50 mg PO QAM hypertension #30 tabs 03/13/21 03/26/22 Unknown Rx metformin 500 mg tablet 500 mg PO DAILY Glucose control 06/19/21 03/26/22 Unknown Rx #30 tabs furosemide 40 mg tablet (Lasix) 40 mg PO DAILY PRN Edema 03/16/22 03/26/22 Unknown History atorvastatin 80 mg tablet 80 mg PO DAILY #30 tabs 03/19/22 03/26/22 Unknown Rx aspirin 81 mg tablet,delayed 81 mg PO QAM 03/26/22 03/26/22 Unknown History release (Adult Low Dose Aspirin) elderberry fruit 200 mg capsule 200 mg PO QAM 03/26/22 03/26/22 Unknown History lisinopril 40 mg tablet 40 mg PO DAILY 03/26/22 03/26/22 Unknown History Allergies Allergy/AdvReac Type Severity Reaction Status Date / Time No Known Allergies Allergy Verified 03/18/22 08:29 PFSH Acute PFSH: Medical History Anxiety about health Breast cancer Rt breast surgery about 20 years ago Cardiomyopathy Chronic coughing Diabetes Elevated glucose Hyperlipidemia associated with type 2 diabetes mellitus Hypertension Influenza vaccine needed Obesity (BMI 30.0-34.9) Primary atypical pneumonia Pulmonary edema cardiac cause SOBOE (shortness of breath on exertion) Systolic heart failure Surgical History H/O lumpectomy History of lymph node dissection of right axilla Social History Smoking and tobacco status: never smoked Second hand smoke exposure: No Smoking risk assessment/counseling performed?: No Alcohol intake: never Desire information about alcohol rehabilitation?: No Counseling given: No Desire information about substance/drug rehabilitation?: No Counseling given: No Marital status: Number of children: 2 Number of grandchildren: 5 Current occupational status: disabled Vitals/I&O/Wt Last Vital Signs Temp 97.6 F 03/25/22 16:37 Pulse 81 03/25/22 17:30 Resp 20 H 03/25/22 17:30 BP 120/66 03/25/22 17:30 Pulse Ox 94 03/25/22 17:30 O2 Del Method 03/25/22 17:30 Weight last 48 hrs Weight 77.111 kg Physical Exam Narrative: Will Pleasant female Currently chest pain with Hemodynamically stable Currently in sinus rhythm Currently on room air Awake and alert at the bedside Abdomen soft Does not look fluid overloaded No acute distress Looks slightly dehydrated Data : 03/25/22 16:45 03/26/22 02:22 A&P Assessment and plan (1) New onset a-fib: Plan New onset A. fib RVR Avoid Cardizem because of low EF I will increase the dose of Coreg Check TSH and magnesium level check D-dimer Optimize her heart rate below 110 at least for tonight Monitor her blood pressure I will anticoagulate her with Lovenox therapeutic regimen She will get Eliquis at the time of discharge [id number] Full code Cardiac diet DVT prophylaxis covered with therapeutic Lovenox Attestations Medical Necessity Statement*: Anticipating discharge within 48 hours for management of A. fib RVR Time Spent in Patient Care: 40 Coding Level of Care Code Acute Safety Investigator for Chg Fwd Diagnoses New onset a-fib I48.91
[2022-03-25] MEDS: dilTIAZem ER (24HR) 120 mg Capsule PO (18:29)
[2022-03-25 18:44] LABS: D Dimer 0.67 ug/mIFEU (0-0.59)
[2022-03-25 19:04] LABS: Anion Gap 19.8 (5-19); Blood Urea Nitrogen 18 mg/dL (8-23); Calcium 10.1 mg/dL (8.5-10.5); Carbon Dioxide 21 mmol/L (22-29); Chloride 101 mmol/L (98-107); Glomerular Filtration Rate 41.1 mL/min (90-130); Glucose 127 mg/dL (65-115); Osmolality Calculated 289 mOsm/kg (285-295); Potassium 3.8 mmol/L (3.5-5.1); Sodium 138 mmol/L (136-145)
[2022-03-25 19:25] LABS: Troponin 5 2HR 51.77 ng/L (0-10)
[2022-03-25 19:26] LABS: Troponin 5 2HR Delta -0.23 ABS# (0-10)
--- NOTE | 2022-03-25 19:28 | PC.NURSE ---
Report from GAVI Rodriguez. Pt eating sandwich. RACHEAL.
[2022-03-25 21:32] LABS: Thyroid Stimulating Hormone 0.83 uIU/mL (0.27-4.20)
[2022-03-25] MEDS: carvedilol 25 mg Tablet PO (22:03)
[2022-03-25] MEDS: enoxaparin 80 mg/0.8 mL Syringe SUBCUT (22:04)
[2022-03-25 22:23] LABS: Glucose Point of Care 127 mg/dL (70-110)
--- NOTE | 2022-03-25 22:43 | ECG_ITS ---
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 Measurements Intervals [place] Rate: 79 P: 50 [place]: 176 QRS: 61 QRSD: 138 T: 230 QT: 432 QTc: 498 Interpretive Statements SINUS RHYTHM INTRAVENTRICULAR CONDUCTION DELAY [130+ ms QRS DURATION] Compared to ECG 03/25/2022 16:52:22 Atrial fibrillation no longer present Electronically Signed On 03-25-2022 21:06:54 CDT by Kenya Powell M.D. [id number]
[2022-03-25 22:58] LABS: Troponin 5 6HR 49.23 ng/L (0-10)
[2022-03-25 23:22] LABS: Troponin 5 6HR Delta -2.77 ng/L (0-12)
[2022-03-26 00:16] VITALS: BP 106/67; PULSE 71; RESP 18; TEMP 36.9; O2SAT 96
[2022-03-26 02:35] LABS: Add Urine Microscopic? NO; Charge for UA Resulting for Rev
[2022-03-26 02:57] LABS: Anion Gap 17.4 (5-19); Blood Urea Nitrogen 18 mg/dL (8-23); Calcium 9.9 mg/dL (8.5-10.5); Carbon Dioxide 24 mmol/L (22-29); Chloride 106 mmol/L (98-107); Creatinine Clr Calc Pharmacy 73.5166; Glucose 129 mg/dL (65-115); Osmolality Calculated 300 mOsm/kg (285-295); Potassium 4.4 mmol/L (3.5-5.1); Sodium 143 mmol/L (136-145)
[2022-03-26 03:34] LABS: Bilirubin Urine Neg (Negative); Blood Urine Neg (Negative); Glucose Urine UA Norm (Normal); Ketones Urine Negative (Negative); Nitrate Urine Negative (Negative); Protein Urine Neg (Negative); Specific Gravity, Urine 1.025 (1.005-1.030); Urine Appearance Clear (CLEAR); Urine Color Yellow (Yellow); Urobilinogen Urine 1 mg/dL (Negative); pH Urine 5 (5-7)
[2022-03-26 03:35] LABS: Leukocyte Esterase Urine Negative (Negative)
[2022-03-26 04:00] VITALS: BP 102/66; PULSE 63; RESP 18; TEMP 36.9; O2SAT 96
[2022-03-26 06:00] VITALS: PULSE 72
[2022-03-26 06:28] LABS: Glucose Point of Care 128 mg/dL (70-110)
[2022-03-26 08:00] VITALS: BP 112/76; PULSE 68; RESP 16; TEMP 36.4; O2SAT 95
[2022-03-26 09:01] VITALS: PULSE 85; RESP 18; O2SAT 96
--- NOTE | 2022-03-26 09:12 | PC.PHAR ---
pt states her elias takes care of her medications-elias states the pt is not taking carvedilol 6.25mg bid written 11/14/20-glyburide 1.25mg daily filled 08/17/21 90d/s with refills-or sertraline 50mg written 03/13/2021-elias states the pt takes spironolactone 50mg qam last filled 06/25/21 30d/s-metformin 500mg daily filled 06/19/21 30d/s-lasix 40mg daily prn last filled 05/15/21 90d/s-elias states the pt takes lisinopril 40mg daily pharmacy states they have not filled 40mg for the pt states they filled 10mg bid 03/13/2021 pharmacy states they do fill 40mg daily for the pts elias and last filled 40mg for elias on 08/31/21-pharmacy states since the pt lost prescription insurance coverage that they have no been compliant with getting medications-notes are made in the pharmacy comments
[2022-03-26] MEDS: atorvastatin 40 mg Tablet 80 MG PO (09:25)
--- NOTE | 2022-03-26 09:47 | PM.DCS ---
Discharge Providers Date of Admission: 03/25/22 21:06 Date of Discharge: March 26, 2022 Attending Provider at Admission: Kathy Santiago MD Attending Provider at Discharge: Kathy Santiago MD Primary Care Provider: Kel Escobar MD Diagnoses at Discharge Discharge Diagnosis (1) New onset a-fib: Status: Acute Reason for Visit Reason for Visit: TREE LIMB HIT HEAD/ AFIB W/RVR Hospital Course Hospital Course 66 female who was diagnosed with new onset A. fib RVR in the ER her heart rate improved with AV dilan blocking agents in the ER her rhythm converted to sinus by the time I evaluated her, her [id number] is 5 decision was made to put her on low-dose metoprolol along rivaroxaban. Side effects were explained to the patient. Electrolytes were normal TSH normal. She does have history of systolic congestive heart failure clinically does not look fluid overloaded. She is well compensated. Physical Exam Narrative: Well compensated No active signs of CHF exacerbation S1, S2 Sinus rhythm Abdomen soft Eating breakfast Family at the bedside Awake and alert Nonfocal neuro exam Discharge Data Studies Completed and Pending Completed Studies During Hospitalization Category Date Time Status CT head wo con* [id number] Stat Cat Scan 03/25/22 16:44 Completed XR cervical spine 3V* [id number] Stat Exams 03/25/22 16:42 Completed XR chest 1V portable [id number] Stat Exams 03/25/22 16:43 Completed Radiology Impressions Cervical Spine X-Ray 03/25/22 16:42 IMPRESSION: No acute findings. Chest X-Ray 03/25/22 16:43 IMPRESSION: No acute findings. Head CT 03/25/22 16:44 IMPRESSION: No acute intracranial abnormality. Laboratory Results WBC 8.1 10^3/uL (4.0-10.0) 03/25/22 16:45 RBC 4.64 10^6/uL (4.1-5.3) 03/25/22 16:45 Hgb 13.4 g/dL (11.5-15.3) 03/25/22 16:45 Hct 41.5 % (37.0-47.0) 03/25/22 16:45 MCV 89.4 fl (81-99) 03/25/22 16:45 MCH 28.9 pg (28.0-34.0) 03/25/22 16:45 MCHC 32.3 g/dL (30.0-36.0) 03/25/22 16:45 RDW 14.3 % (12.1-15.1) 03/25/22 16:45 Plt Count 215 10^3/cmm (130-400) 03/25/22 16:45 MPV 11.2 fL (7.4-10.4) H 03/25/22 16:45 Lymph % (Auto) Not Reportable 03/25/22 16:45 [place] % (Auto) Not Reportable 03/25/22 16:45 Lymph # (Auto) Not Reportable 03/25/22 16:45 [place] # (Auto) Not Reportable 03/25/22 16:45 Total Counted 100 (0-100) 03/25/22 16:45 Atypical Lymphs % 4.0 % (0-5) 03/25/22 16:45 Absolute Neutrophils 4.7 10^3/cmm (1.4-6.5) 03/25/22 16:45 Segmented Neutrophils 58 % 03/25/22 16:45 Abs Segm Neuts (Man) 4.7 10/cmm (1.6-7.1) 03/25/22 16:45 Band Neutrophils 0.0 % 03/25/22 16:45 Abs Band Neuts (Man) 0.0 10^3/cmm (0.0-1.2) 03/25/22 16:45 Absolute Lymphocytes 2.8 10^3/cmm (1.2-3.4) 03/25/22 16:45 Lymphocytes (Manual) 30 % 03/25/22 16:45 Monocytes (Manual) 7.0 % 03/25/22 16:45 Absolute Monocytes 0.6 10^3/cmm (0.1-0.6) 03/25/22 16:45 Eosinophils (Manual) 1 % 03/25/22 16:45 Absolute Eosinophils 0.0 10^3/cmm (0.0-0.7) 03/25/22 16:45 Basophils (Manual) 0.0 % 03/25/22 16:45 Absolute Basophils 0.0 10^3/cmm (0.0-0.2) 03/25/22 16:45 Platelet Estimate Normal (Normal) 03/25/22 16:45 D-Dimer 0.67 ug/mIFEU (0-0.59) H 03/25/22 18:18 Sodium 143 mmol/L (136-145) 03/26/22 02:22 Potassium 4.4 mmol/L (3.5-5.1) 03/26/22 02:22 Chloride 106 mmol/L (98-107) 03/26/22 02:22 Carbon Dioxide 24 mmol/L (22-29) 03/26/22 02:22 Anion Gap 17.4 (5-19) 03/26/22 02:22 BUN 18 mg/dL (8-23) 03/26/22 02:22 Creatinine 0.8 mg/dL (0.5-0.9) 03/26/22 02:22 GFR Calculation 72.0 mL/min (90-130) L 03/26/22 02:22 Glucose 129 mg/dL (65-115) H 03/26/22 02:22 POC Glucose 128 mg/dL (70-110) H 03/26/22 06:25 Calculated Osmolality 300 mOsm/kg (285-295) H 03/26/22 02:22 Calcium 9.9 mg/dL (8.5-10.5) 03/26/22 02:22 Magnesium 2.0 mg/dL (1.7-2.3) 03/26/22 02:22 Troponin T Baseline 52 ng/L (0-10) H 03/25/22 16:45 Troponin T 120 Minute 51.77 ng/L (0-10) H 03/25/22 18:43 Delta Troponin T -0.23 ABS# (0-10) L 03/25/22 18:43 Troponin T Hi Sens 6Hr 49.23 ng/L (0-10) H 03/25/22 22:23 Troponin T Hi Sens 6Hr Delta -2.77 ng/L (0-12) L 03/25/22 22:23 TSH 0.83 uIU/mL (0.27-4.20) 03/25/22 18:43 Urine Color Yellow (Yellow) 03/26/22 02:25 Urine Appearance Clear (CLEAR) 03/26/22 02:25 Urine pH 5 (5-7) 03/26/22 02:25 Ur Specific [place] 1.025 (1.005-1.030) 03/26/22 02:25 Urine Protein Neg (Negative) 03/26/22 02:25 Urine Glucose (UA) Norm (Normal) 03/26/22 02:25 Urine Ketones Negative (Negative) 03/26/22 02:25 Urine Blood Neg (Negative) 03/26/22 02:25 Urine Nitrate Negative (Negative) 03/26/22 02:25 Urine Bilirubin Neg (Negative) 03/26/22 02:25 Urine Urobilinogen 1 mg/dL (Negative) H 03/26/22 02:25 Ur Leukocyte Esterase Negative (Negative) 03/26/22 02:25 Vitals Last Vital Signs Temp 97.6 F 03/26/22 08:00 Pulse 85 03/26/22 09:01 Resp 18 03/26/22 09:01 BP 112/76 03/26/22 08:00 Pulse Ox 96 03/26/22 09:01 O2 Del Method 03/26/22 09:01 Discharge Plan Discharge Patient Disposition: Home Condition: Stable Prescriptions: New metoprolol tartrate 25 mg tablet 12.5 mg PO BID Qty: 60 2RF rivaroxaban 20 mg tablet 20 mg PO DAILY Qty: 90 3RF Rx Instructions: must administer with evening meal Continued metformin 500 mg tablet 500 mg PO DAILY Qty: 30 5RF Lasix 40 mg tablet 40 mg PO DAILY PRN (Reason: Edema) atorvastatin 80 mg tablet 80 mg PO DAILY Qty: 30 5RF lisinopril 40 mg Tablet 40 mg PO DAILY Discontinued spironolactone 50 mg tablet 50 mg PO QAM Qty: 30 5RF Elderberry 200 mg Capsule 200 mg PO QAM Adult Low Dose Aspirin 81 mg tablet,delayed release (DR/EC) 81 mg PO QAM Discharge Orders: Discharge Order (Routine); Ordered 03/26/22 Ordered By: Kathy Santiago Referrals: Kel Escobar MD [Primary Care Provider] - 04/13/22 11:00 am Discharge Diet: Cardiac Discharge Activity: Increase activity as tolerated Patient Instructions: Opioid Safety Patient's Health Concerns: Do not take blood pressure medications if your systolic blood pressure is below 100mmhg do not take metoprolol if heart rate below 60 Discharge Attestations Time Spent in Discharge Care*: less than 30 min Quality Metrics Clinical Quality Measures [ No reported AMI, CVA or VTE this stay] Coding Level of Care Code Acute Chg FW DC note Diagnoses New onset a-fib I48.91
--- NOTE | 2022-03-26 10:32 | PC.CHAP ---
Pastoral Care Encounter/Spiritual Assessment Type of Contact [] Declined wind up worker visit [] Patient/Family/Request visit [] Outpatient visit [] Follow-up visit [] Physician referral [] Code/Alert [x] Routine visit [] Staff referral [] Actively dying [] Patient sleeping [] Family support [] [] Out of room [] Palliative care [] [x] Receiving care in room [] Pre-surgical visit [] Trauma [] Long length of stay [] ICU visit [] Other: Relational/Emotional Strength [x] Patient feels connected with others/family/visitors/staff [] Distress [] Loneliness/isolation [] Abandonment Spirituality of Patient [x] Person of Reena [] Attends Alevism of their Reena [] Believes in Prayer [] Reads Bible or Jewish materials [] There are Spiritual issues to be addressed Canvas Baster Jumpbasting Interventions [x] Prayer [x] Active listening [] Non-anxious presence [] Spiritual/emotional support [] Crisis/trauma care [] Spiritual counseling [] Bereavement support [] Provided bereavement packet [] Provided Bible/devotional materials [] Provided toy/stuffed animal, coloring book to patient or family member [] Provided Communion [] Anointing/[place] [] Salvation [x] Completed spiritual assessment [] Other: Impact on Illness or Injury [] Angry [] Fearful [] Anxious [] Often cries [] Exhaustion [] Unable to work [] Unable to attend alevism [] Unable to walk/stand [] Unable to read [] Unable to drive [] Unable to eat/drink [] Unable to sleep [] Unable to be with family [] Patient intubated [] Other: Summary Time spent with patient 15 min
[2022-03-26 10:57] LABS: Glucose Point of Care 119 mg/dL (70-110)
[2022-03-26 11:16] VITALS: PULSE 85; RESP 18; O2SAT 96
--- NOTE | 2022-03-26 11:18 | PC.NURSE ---
Patient discharged via wheelchair to main entrance where was waiting in car. Gave discharge instructions and education. Gave follow up appointments. IV removed and intact. Patient verbalized understanding of all instructions.
== END 2022-03-26 11:19 | disposition home or self-care (01) ==
LOC: ER 16:47 → MEDSURG 20:14
PROVIDERS: Admitting Provider Internal Medicine; Emergency Provider Family Medicine; PCP Family Medicine Adult Medicine; Visit Provider Internal Medicine
DX: I48.91 Unspecified atrial fibrillation (principal); Z79.82 Long term (current) use of aspirin; E11.9 Type 2 diabetes mellitus without complications; Z79.84 Long term (current) use of oral hypoglycemic drugs; E78.5 Hyperlipidemia, unspecified; E66.9 Obesity, unspecified; Z68.27 Body mass index [BMI] 27.0-27.9, adult; I11.0 Hypertensive heart disease with heart failure; I50.20 Unspecified systolic (congestive) heart failure
CPT/HCPCS: 36415; 36416; 70450; 71045; 72040; 80048; 81003; 82962; 83735; 84443; 84484; 85007; 85025; 85378; 93005; 96365; 96366; 96372; 96375; 99285; G0378; J1650; J3490

== ENCOUNTER 2022-05-21 08:39 | Outpatient (CLI) | payer MEDICARE, MEDICAID, SELFPAY ==
--- NOTE | 2022-05-21 08:50 | MM_ITS ---
WS: [id number] DIAGNOSTIC BILATERAL DIGITAL BREAST TOMOSYNTHESIS MAMMOGRAPHY WITH CAD HISTORY: 6M FOLLOW UP COMPARISON: 11/24/2021, 05/22/2021, 12/25/2013 TECHNIQUE: Bilateral craniocaudad, mediolateral oblique, and mediolateral views are submitted with to mosynthesis and SM. Computer aided detection utilized. Breast composition: There are scattered areas of fibroglandular density. Significant volume loss and postsurgical changes in the RIGHT breast. The asymmetry in the LEFT breast is not apparent on today's examination. There is no distortion or mass. No nipple retraction. MM/[place] [id number] IMPRESSION: BI-RADS: 2-Benign FOLLOW UP: 1 Year Follow-up
== END 2022-05-21 08:40 | disposition home or self-care (01) ==
LOC: RAD 08:43
PROVIDERS: PCP Family Medicine Adult Medicine; Visit Provider Family Medicine Adult Medicine
DX: N64.89 Other specified disorders of breast (principal)
CPT/HCPCS: 77062; G0279

== ENCOUNTER → 2022-09-14 08:26 | Outpatient (BNVA) | payer MEDICARE, MEDICAID, SELFPAY | PROVIDERS: PCP Family Medicine Adult Medicine; Visit Provider Family Medicine Adult Medicine | DX: R63.4 Abnormal weight loss (principal); F41.8 Other specified anxiety disorders; E11.69 Type 2 diabetes mellitus with other specified complication; I11.0 Hypertensive heart disease with heart failure; I50.22 Chronic systolic (congestive) heart failure; E78.5 Hyperlipidemia, unspecified | CPT/HCPCS: 80053; 83036; 84443; 85025 ==

== ENCOUNTER → 2022-10-04 09:50 | Outpatient (BNVA) | payer MEDICARE, MEDICAID, SELFPAY | PROVIDERS: PCP Family Medicine Adult Medicine; Visit Provider Specialist | DX: I42.8 Other cardiomyopathies (principal); I48.91 Unspecified atrial fibrillation; I48.92 Unspecified atrial flutter; I11.0 Hypertensive heart disease with heart failure; I50.20 Unspecified systolic (congestive) heart failure | CPT/HCPCS: 99214 ==

== ENCOUNTER 2022-10-08 09:10 | Outpatient (CLI) | payer MEDICARE, MEDICAID, SELFPAY ==
--- NOTE | 2022-10-08 09:25 | XR_ITS ---
WS: [id number] Exam: XR chest 2V* [id number] Date/Time of Exam: 10/08/2022 9:25 AM Reason For Exam: Shortness of breath Comparison 03/25/2022. There is infiltrate in the mid and lower right lung suggesting pneumonia. Plaque atelectasis in the l eft base. Mild cardiac enlargement. Slightly increased pulmonary vascularity. No obvious pleural effu panda. The mediastinum is normal in contour. Bony structures are intact. XR/XR chest 2V* [id number] IMPRESSION: 1. Infiltrate in the mid and lower right lung suggesting pneumonia. 2. Mild cardiac enlargement with increased pulmonary vascularity.
== END 2022-10-08 09:11 | disposition home or self-care (01) ==
LOC: RAD 09:13
PROVIDERS: PCP Family Medicine Adult Medicine; Visit Provider Family Medicine Adult Medicine
DX: J44.9 Chronic obstructive pulmonary disease, unspecified (principal); R63.4 Abnormal weight loss; Z85.3 Personal history of malignant neoplasm of breast; R05.9 Cough, unspecified
CPT/HCPCS: 71046

== ENCOUNTER 2022-10-16 18:43 | Emergency (ER) | payer MEDICARE, MEDICAID, SELFPAY ==
[2022-10-16 18:46] VITALS: BP 137/98; PULSE 107; RESP 16; TEMP 36.8; O2SAT 93; BMI 30.4
--- NOTE | 2022-10-16 19:54 | USR_ITS ---
PROCEDURE INFORMATION: Exam: US Duplex Lower Extremity Arteries Exam date and time: 10/16/2022 8:30 PM Age: 67 years old Clinical indication: Pain; Leg, lower; Bilateral; Additional info: Pain with reduced blood flow on exam TECHNIQUE: Imaging protocol: Real-time ultrasound scan of the arteries of the bilateral lower extremities with 2-D sandoval scale, color Doppler flow and spectral waveform analysis. Images documented and saved. COMPARISON: No relevant prior studies available. FINDINGS: Right common femoral artery: No occlusion or significant stenosis. Normal waveform. Right superficial femoral artery: No occlusion or significant stenosis. Normal waveform. Right popliteal artery: No occlusion or significant stenosis. Normal waveform. Right calf/foot arteries: No occlusion or significant stenosis in the visualized arteries. Normal waveforms. Dorsalis pedis artery is patent. Left common femoral artery: No occlusion or significant stenosis. Normal waveform. Left superficial femoral artery: No occlusion or significant stenosis. Normal waveform. Left popliteal artery: No occlusion or significant stenosis. Normal waveform. Left calf/foot arteries: No occlusion or significant stenosis in the visualized arteries. Normal waveforms. Dorsalis pedis artery is patent. US/CV arterial duplex [facility] [id number] IMPRESSION: No stenosis or occlusion.
--- NOTE | 2022-10-16 19:54 | USR_ITS ---
PROCEDURE INFORMATION: Exam: US Duplex Lower Extremity Veins, Bilateral Exam date and time: 10/16/2022 8:42 PM Age: 67 years old Clinical indication: Swelling (edema) of limb; Lower extremity, bilateral; Additional info: Swelling with edema TECHNIQUE: Imaging protocol: Real-time duplex ultrasound of the bilateral extremities with 2-D sandoval scale, color Doppler flow and spectral waveform analysis including responses to compression and other maneuvers (when performed) with image documentation. Complete exam focused on the lower extremity veins. COMPARISON: US CV arterial duplex [facility] [id number] 10/16/2022 8:30 PM FINDINGS: Right deep veins: Unremarkable. The common femoral, femoral, proximal profunda femoral and popliteal veins are patent without thrombus. Normal Doppler waveforms. Normal compressibility and/or augmentation response. Right superficial veins: Saphenofemoral junction is patent without thrombus. Left deep veins: Unremarkable. The common femoral, femoral, proximal profunda femoral and popliteal veins are patent without thrombus. Normal Doppler waveforms. Normal compressibility and/or augmentation response. Left superficial veins: Saphenofemoral junction is patent without thrombus. Soft tissues: Subcutaneous soft tissue edema is noted. US/[place] [id number] IMPRESSION: No evidence of deep vein thrombosis.
[2022-10-16 19:58] VITALS: BP 139/106; PULSE 102; RESP 16; O2SAT 92
--- NOTE | 2022-10-16 20:04 | W.ED.EXTPRO ---
Documented by User: Frank Pacheco 10/16/22 23:25 HPI - Extremity Problem General: Chief complaint: Extremity Injury, Lower Stated complaint: leg swelling Time Seen by Provider: 10/16/22 19:46 History of Present Illness: 67-year-old female presents emergency department chief complaint of bilateral lower leg pain and they feel cold to touch patient reports is been ongoing for last couple of days patient is a known history of atrial fibrillation that she is on Xarelto for. He does not recall any current chest pain reports chronic shortness of breath with chronic COPD patient does not endorse any recent acute exacerbation of CHF she does not report any prior trauma noted to either of her legs she does not recall any known history of blood clots. Patient reports she has been taking her Xarelto as prescribed reporting no other associated symptoms. Associated symptoms: Deny chest pain or fever(s) Review of Systems General: Reports: 10 or more systems reviewed and unremarkable except in HPI and below Const: Denies: fever(s), chills, fatigue or malaise Eyes: Denies: change in vision or blurry vision Card: Denies: chest pain or palpitations Resp: Denies: dyspnea or productive cough GI: Denies: abdominal pain, nausea or vomiting : Denies: flank pain Musc: Reports: extremity pain and extremity swelling Neuro: Denies: headache(s) Psych: Denies: anxiety or depression Alfredo/Lymph: Denies: easy bleeding All/Imm: Denies: urticaria, throat swelling or facial swelling PFSH ED PFSH: Medical History Anxiety about health Atrial fibrillation and flutter Atypical pneumonia Cardiomyopathy Chronic coughing Closed head injury COPD (chronic obstructive pulmonary disease) Diabetes History of breast cancer Right breast cancer surgery 20+ years ago Hyperlipidemia associated with type 2 diabetes mellitus Hypertension New onset a-fib Obesity (BMI 30.0-34.9) SOBOE (shortness of breath on exertion) Systolic heart failure Weight loss, unintentional Surgical History H/O lumpectomy History of lymph node dissection of right axilla Social History Smoking and tobacco status: never smoked Second hand smoke exposure: No Smoking risk assessment/counseling performed?: No Alcohol intake: never Desire information about alcohol rehabilitation?: No Counseling given: No Substance/Drug Use: never Desire information about substance/drug rehabilitation?: No Counseling given: No Marital status: Number of children: 2 Number of grandchildren: 5 Current occupational status: disabled Physical Exam Const: COMMON NORMALS: no acute distress, patient oriented x3 and healthy appearing HENMT: COMMON NORMALS: normocephalic and atraumatic HEAD & SCALP: normocephalic and atraumatic Eye: COMMON NORMALS: Equal, round and reactive pupils present and EOMs intact bilaterally PUPIL: Yes Equal, round and reactive pupils present Neck/C-Spine: COMMON NORMALS: full ROM, supple and no JVD Lymph: LYMPHATIC: no lymphadenopathy noted Chest: COMMONS NORMALS: normal inspection of the chest and normal palpation of entire chest wall OTHER: Irregularly irregular rhythm rate 102 Resp: COMMON NORMALS: normal respiratory effort, No retractions and clear to auscultation bilaterally EFFORT & INSPECTION: Yes able to speak in complete sentences and Yes symmetric chest movement AUSCULTATION: clear to auscultation bilaterally Cardio: COMMON NORMALS: no JVD GI: COMMON NORMALS: Normal to inspection, nondistended, normoactive bowel sounds present, Soft to palpation and non-tender INSPECTION: Yes normal to inspection PALPATION: Yes Soft to palpation : COMMON NORMALS: Yes no CVA tenderness BLADDER/KIDNEY EXAM: Yes no CVA tenderness Back/Pelvis: COMMON NORMALS: no CVA tenderness Extremity: NARRATIVE EXTREMITY EXAM: Here to be called atBilateral pedal edema appreciated splint 2+ pitting edema appreciated with delayed capillary refill and 2+. Neuro: COMMON NORMALS: patient oriented x3, CN's II-XII intact bilaterally, moves all extremities and no focal motor deficits Psych: COMMON NORMALS: mental status grossly normal, Normal thought process present, cooperative and normal affect THOUGHT PROCESS: Normal thought process present Course Vital Signs: Vital signs: Vital Signs Temperature 98.3 F 10/17/22 02:44 Pulse Rate 94 10/17/22 02:44 Respiratory Rate 16 10/17/22 02:44 Blood Pressure 150/100 10/17/22 02:44 Pulse Oximetry 94 10/17/22 02:44 Oxygen Delivery Me thod Room Air 10/16/22 18:46 MDM - Extremity (Nontraumatic) Medical Decision Making Due to concerns of both venous and arterial vascular insufficiency do this ultrasonography of the legs will be obtained based on ongoing basic cardiac work-up she does have a known history of congestive heart failure we will continue to follow Patient's vascular work-up of the legs came back unremarkable midway through patient's treatment appointment with us that the patient is now having active chest pain due to his EKG in addition cardiac troponins were obtained talk with the patient we will keep the patient she pressed upon the right upper quadrant region per the family patient has a prior history of gallbladder disease patient transaminases were elevated as well as alkaline phosphatase we will backtrack and get a designated CT of the abdomen pelvis to further rule out gallbladder disease as well as a CT of the chest with patient oxygenation is slightly low and she has been tachycardic to further rule out pulmonary embolism we will continue to treat as needed. Which patient will be provided nitroglycerin and aspirin per protocol as well as fentanyl. We will continue to follow this patient will be signed out to my colleague Dr. Bassett at [phone] Lab Data 10/16/22 20:15 10/16/22 21:25 Radiology Impressions Duplex Scan Lower Extremity Artery 10/16/22 19:54 IMPRESSION: No stenosis or occlusion. Venous Duplex 10/16/22 19:54 IMPRESSION: No evidence of deep vein thrombosis. Chest X-Ray 10/16/22 22:47 IMPRESSION: Moderate bilateral perihilar and lower lobe infiltrates similar to previous. Correlate for pulmonary vascular congestion versus pneumonia. Chest/Abdomen/Pelvis CT 10/16/22 22:47 IMPRESSION: 1. No pulmonary embolus identified. 2. Moderate fzguz-enyibwz-qpru-left pleural effusions with adjacent consolidation or atelectasis. There is also ground-glass opacities bilaterally in the lungs suggesting pulmonary vascular congestion. 3. Stable mildly prominent mediastinal and right hilar lymph nodes. IMPRESSION: 1. No acute findings in the abdomen/pelvis. 2. Hepatomegaly with findings suggestive of passive hepatic venous congestion. Laboratory Results WBC 6.5 10^3/uL (4.0-10.0) 10/16/22 20:15 RBC 5.87 10^6/uL (4.1-5.3) H 10/16/22 20:15 Hgb 15.9 g/dL (11.5-15.3) H 10/16/22 20:15 Hct 50.2 % (37.0-47.0) H 10/16/22 20:15 MCV 85.5 fl (81-99) 10/16/22 20:15 MCH 27.1 pg (28.0-34.0) L 10/16/22 20:15 MCHC 31.7 g/dL (30.0-36.0) 10/16/22 20:15 RDW 17.8 % (12.1-15.1) H 10/16/22 20:15 Plt Count 196 10^3/cmm (130-400) 10/16/22 20:15 MPV 12.2 fL (7.4-10.4) H 10/16/22 20:15 Neut % (Auto) 37.2 % 10/16/22 20:15 Lymph % (Auto) 54.5 % 10/16/22 20:15 Early % (Auto) 6.6 % 10/16/22 20:15 Eos % (Auto) 0.9 % 10/16/22 20:15 Baso % (Auto) 0.6 % 10/16/22 20:15 Neut # (Auto) 2.41 10^3/uL (1.8-7.7) 10/16/22 20:15 Lymph # (Auto) 3.5 10^3/uL (0.8-4.8) 10/16/22 20:15 Early # (Auto) 0.4 10^3/uL (0.2-0.9) 10/16/22 20:15 Eos # (Auto) 0.1 10^3/uL (0.0-0.8) 10/16/22 20:15 Baso # (Auto) 0.0 10^3/uL (0.0-0.1) 10/16/22 20:15 Nucleated RBC % (auto) 0 % 10/16/22 20:15 Nucleated RBCs # 0.0 /100WBC 10/16/22 20:15 PT 17.00 SECONDS (12.1-14.9) H 10/16/22 20:15 INR 1.34 (0.8-1.2) H 10/16/22 20:15 APTT 26.9 SECONDS (23.9-36.7) 10/16/22 20:15 Sodium 141 mmol/L (136-145) 10/16/22 21:25 Potassium 3.6 mmol/L (3.5-5.1) 10/16/22 21:25 Chloride 106 mmol/L (98-107) 10/16/22 21:25 Carbon Dioxide 24 mmol/L (22-29) 10/16/22 21:25 Anion Gap 14.6 (5-19) 10/16/22 21:25 BUN 15 mg/dL (8-23) 10/16/22 21:25 Creatinine 0.7 mg/dL (0.5-0.9) 10/16/22 21:25 GFR Calculation 83.7 mL/min (90-130) L 10/16/22 21:25 Glucose 100 mg/dL (65-115) 10/16/22 21:25 Calculated Osmolality 293 mOsm/kg (285-295) 10/16/22 21:25 Lactate 2.1 mmol/L (0.5-2.2) 10/16/22 20:15 Calcium 8.7 mg/dL (8.5-10.5) 10/16/22 21:25 Total Bilirubin 1.2 mg/dL (0.15-1.2) 10/16/22 21:25 AST 52 U/L (0-32) H 10/16/22 21:25 ALT 57 U/L (0-33) H 10/16/22 21:25 Alkaline Phosphatase 174 U/L (35-105) H 10/16/22 21:25 Creatine Kinase 106 U/L (26-192) 10/16/22 21:25 Troponin T Baseline 22 ng/L (0-10) H 10/16/22 20:15 Troponin T 120 Minute 24.86 ng/L (0-10) H 10/17/22 01:00 Delta Troponin T 2.86 ABS# (0-10) 10/17/22 01:00 C-Reactive Protein 7.5 mg/L (0.0-4.9) H 10/16/22 21:25 Total Protein 6.0 g/dL (6.6-8.7) L 10/16/22 21:25 Albumin 3.2 g/dL (3.5-5.2) L 10/16/22 21:25 Globulin 2.8 g/dL (1.3-4.6) 10/16/22 21:25 Discharge Plan Discharge Patient Disposition: Home Clinical Impression: Pulmonary edema Condition: Stable Prescriptions: New furosemide 40 mg tablet 40 mg PO DAILY Qty: 3 0RF No Action lisinopril 40 mg tablet 40 mg PO DAILY Qty: 30 5RF metformin 500 mg tablet 500 mg PO DAILY Qty: 30 5RF rivaroxaban 20 mg tablet 20 mg PO DAILY Qty: 90 3RF Rx Instructions: must administer with evening meal spironolactone 50 mg tablet 50 mg PO QAM Qty: 30 5RF metoprolol succinate 50 mg tablet extended release 24 hr 50 mg PO DAILY Qty: 90 3RF atorvastatin 80 mg tablet 80 mg PO DAILY Qty: 30 5RF glipizide 2.5 mg tablet extended release 24hr 2.5 mg PO DAILY Qty: 30 5RF Combivent Respimat 20-100 mcg/actuation mist 1 puff inhalation Q6H PRN (Reason: shortness of breath) Qty: 4 3RF sertraline 50 mg tablet 50 mg PO DAILY Qty: 30 0RF Rx Instructions: 1/2 tablet daily for 6 days then One daily doxycycline hyclate 100 mg capsule 100 mg PO BID Qty: 30 0RF Discharge Orders: Discharge ED (Routine); Ordered 10/17/22 Ordered By: New Bassett Referrals: Kel Escobar MD [Primary Care Provider] - Patient Instructions: Pulmonary Edema (ED) Activity Restrictions/Additional Instructions: Return for worsening chest pain or shortness of breath despite treatment. Take medication as directed. Return also for fever greater than 100, any other concerning symptoms. Coding Level of Care Code ED Product Representative for Chg Fwd Documented by User: New Bassett DO 10/17/22 15:35 HPI - Extremity Problem General: Chief complaint: Extremity Injury, Lower Stated complaint: leg swelling Time Seen by Provider: 10/16/22 19:46 PFSH ED PFSH: Medical History Anxiety about health Atrial fibrillation and flutter Atypical pneumonia Cardiomyopathy Chronic coughing Closed head injury COPD (chronic obstructive pulmonary disease) Diabetes History of breast cancer Right breast cancer surgery 20+ years ago Hyperlipidemia associated with type 2 diabetes mellitus Hypertension New onset a-fib Obesity (BMI 30.0-34.9) SOBOE (shortness of breath on exertion) Systolic heart failure Weight loss, unintentional Surgical History H/O lumpectomy History of lymph node dissection of right axilla Social History Smoking and tobacco status: never smoked Second hand smoke exposure: No Smoking risk assessment/counseling performed?: No Alcohol intake: never Desire information about alcohol rehabilitation?: No Counseling given: No Substance/Drug Use: never Desire information about substance/drug rehabilitation?: No Counseling given: No Marital status: Number of children: 2 Number of grandchildren: 5 Current occupational status: disabled Course Vital Signs: Vital signs: Vital Signs Temperature 98.3 F 10/17/22 02:44 Pulse Rate 94 10/17/22 02:44 Respiratory Rate 16 10/17/22 02:44 Blood Pressure 150/100 10/17/22 02:44 Pulse Oximetry 94 10/17/22 02:44 Oxygen Delivery Me thod Room Air 10/16/22 18:46 MDM - Extremity (Nontraumatic) Medical Decision Making Due to concerns of both venous and arterial vascular insufficiency do this ultrasonography of the legs will be obtained based on ongoing basic cardiac work-up she does have a known history of congestive heart failure we will continue to follow Patient's vascular work-up of the legs came back unremarkable midway through patient's treatment appointment with us that the patient is now having active chest pain due to his EKG in addition cardiac troponins were obtained talk with the patient we will keep the patient she pressed upon the right upper quadrant region per the family patient has a prior history of gallbladder disease patient transaminases were elevated as well as alkaline phosphatase we will backtrack and get a designated CT of the abdomen pelvis to further rule out gallbladder disease as well as a CT of the chest with patient oxygenation is slightly low and she has been tachycardic to further rule out pulmonary embolism we will continue to treat as needed. Which patient will be provided nitroglycerin and aspirin per protocol as well as fentanyl. We will continue to follow this patient will be signed out to my colleague Dr. Bassett at [phone] Patient signed out to me by the previous physician at shift change. Vitals have been stable. Hemoglobin is 16. No white blood cell count elevation. BMP is not remarkable. Lower extremity duplexes, venous and arterial, are both negative. Chest X-ray shows perihilar and lower lobe infiltrates previous similar to previous. Gives the appearance of pulmonary vascular congestion. CTA of the chest reveals moderate right greater than left pleural effusions withadjacent vascular congestion. There are no acute findings in the abdomen and pelvis save some hepatic venous congestion as well. She was given lasix with excellent diuresis in the ER. We will continue this for the next three days and have her follow up as an outpatient. Baseline troponin was 22 with no significant elevation at two hours. She knows to return for worsening symptoms. Lab Data 10/16/22 20:15 10/16/22 21:25 Radiology Impressions Duplex Scan Lower Extremity Artery 10/16/22 19:54 IMPRESSION: No stenosis or occlusion. Venous Duplex 10/16/22 19:54 IMPRESSION: No evidence of deep vein thrombosis. Chest X-Ray 10/16/22 22:47 IMPRESSION: Moderate bilateral perihilar and lower lobe infiltrates similar to previous. Correlate for pulmonary vascular congestion versus pneumonia. Chest/Abdomen/Pelvis CT 10/16/22 22:47 IMPRESSION: 1. No pulmonary embolus identified. 2. Moderate dsrgu-ucjxjzv-lrml-left pleural effusions with adjacent consolidation or atelectasis. There is also ground-glass opacities bilaterally in the lungs suggesting pulmonary vascular congestion. 3. Stable mildly prominent mediastinal and right hilar lymph nodes. IMPRESSION: 1. No acute findings in the abdomen/pelvis. 2. Hepatomegaly with findings suggestive of passive hepatic venous congestion. Laboratory Results WBC 6.5 10^3/uL (4.0-10.0) 10/16/22 20:15 RBC 5.87 10^6/uL (4.1-5.3) H 10/16/22 20:15 Hgb 15.9 g/dL (11.5-15.3) H 10/16/22 20:15 Hct 50.2 % (37.0-47.0) H 10/16/22 20:15 MCV 85.5 fl (81-99) 10/16/22 20:15 MCH 27.1 pg (28.0-34.0) L 10/16/22 20:15 MCHC 31.7 g/dL (30.0-36.0) 10/16/22 20:15 RDW 17.8 % (12.1-15.1) H 10/16/22 20:15 Plt Count 196 10^3/cmm (130-400) 10/16/22 20:15 MPV 12.2 fL (7.4-10.4) H 10/16/22 20:15 Neut % (Auto) 37.2 % 10/16/22 20:15 Lymph % (Auto) 54.5 % 10/16/22 20:15 Early % (Auto) 6.6 % 10/16/22 20:15 Eos % (Auto) 0.9 % 10/16/22 20:15 Baso % (Auto) 0.6 % 10/16/22 20:15 Neut # (Auto) 2.41 10^3/uL (1.8-7.7) 10/16/22 20:15 Lymph # (Auto) 3.5 10^3/uL (0.8-4.8) 10/16/22 20:15 Early # (Auto) 0.4 10^3/uL (0.2-0.9) 10/16/22 20:15 Eos # (Auto) 0.1 10^3/uL (0.0-0.8) 10/16/22 20:15 Baso # (Auto) 0.0 10^3/uL (0.0-0.1) 10/16/22 20:15 Nucleated RBC % (auto) 0 % 10/16/22 20:15 Nucleated RBCs # 0.0 /100WBC 10/16/22 20:15 PT 17.00 SECONDS (12.1-14.9) H 10/16/22 20:15 INR 1.34 (0.8-1.2) H 10/16/22 20:15 APTT 26.9 SECONDS (23.9-36.7) 10/16/22 20:15 Sodium 141 mmol/L (136-145) 10/16/22 21:25 Potassium 3.6 mmol/L (3.5-5.1) 10/16/22 21:25 Chloride 106 mmol/L (98-107) 10/16/22 21:25 Carbon Dioxide 24 mmol/L (22-29) 10/16/22 21:25 Anion Gap 14.6 (5-19) 10/16/22 21:25 BUN 15 mg/dL (8-23) 10/16/22 21:25 Creatinine 0.7 mg/dL (0.5-0.9) 10/16/22 21:25 GFR Calculation 83.7 mL/min (90-130) L 10/16/22 21:25 Glucose 100 mg/dL (65-115) 10/16/22 21:25 Calculated Osmolality 293 mOsm/kg (285-295) 10/16/22 21:25 Lactate 2.1 mmol/L (0.5-2.2) 10/16/22 20:15 Calcium 8.7 mg/dL (8.5-10.5) 10/16/22 21:25 Total Bilirubin 1.2 mg/dL (0.15-1.2) 10/16/22 21:25 AST 52 U/L (0-32) H 10/16/22 21:25 ALT 57 U/L (0-33) H 10/16/22 21:25 Alkaline Phosphatase 174 U/L (35-105) H 10/16/22 21:25 Creatine Kinase 106 U/L (26-192) 10/16/22 21:25 Troponin T Baseline 22 ng/L (0-10) H 10/16/22 20:15 Troponin T 120 Minute 24.86 ng/L (0-10) H 10/17/22 01:00 Delta Troponin T 2.86 ABS# (0-10) 10/17/22 01:00 C-Reactive Protein 7.5 mg/L (0.0-4.9) H 10/16/22 21:25 Total Protein 6.0 g/dL (6.6-8.7) L 05/06/23 21:25 Albumin 3.2 g/dL (3.5-5.2) L 10/16/22 21:25 Globulin 2.8 g/dL (1.3-4.6) 10/16/22 21:25 Discharge Plan Discharge Patient Disposition: Home Clinical Impression: Pulmonary edema Condition: Stable Prescriptions: New furosemide 40 mg tablet 40 mg PO DAILY Qty: 3 0RF No Action lisinopril 40 mg tablet 40 mg PO DAILY Qty: 30 5RF metformin 500 mg tablet 500 mg PO DAILY Qty: 30 5RF rivaroxaban 20 mg tablet 20 mg PO DAILY Qty: 90 3RF Rx Instructions: must administer with evening meal spironolactone 50 mg tablet 50 mg PO QAM Qty: 30 5RF metoprolol succinate 50 mg tablet extended release 24 hr 50 mg PO DAILY Qty: 90 3RF atorvastatin 80 mg tablet 80 mg PO DAILY Qty: 30 5RF glipizide 2.5 mg tablet extended release 24hr 2.5 mg PO DAILY Qty: 30 5RF Combivent Respimat 20-100 mcg/actuation mist 1 puff inhalation Q6H PRN (Reason: shortness of breath) Qty: 4 3RF sertraline 50 mg tablet 50 mg PO DAILY Qty: 30 0RF Rx Instructions: 1/2 tablet daily for 6 days then One daily doxycycline hyclate 100 mg capsule 100 mg PO BID Qty: 30 0RF Discharge Orders: Discharge ED (Routine); Ordered 10/17/22 Ordered By: New Bassett Referrals: Kel Escobar MD [Primary Care Provider] - Patient Instructions: Pulmonary Edema (ED) Activity Restrictions/Additional Instructions: Return for worsening chest pain or shortness of breath despite treatment. Take medication as directed. Return also for fever greater than 100, any other concerning symptoms. Coding Level of Care Code ED Product Representative for Arias Davis
[2022-10-16 20:31] LABS: Basophils % 0.6 %; Eosinophils # 0.1 10^3/uL (0.0-0.8); Eosinophils % 0.9 %; Hematocrit 50.2 % (37.0-47.0); Hemoglobin 15.9 g/dL (11.5-15.3); Lymphocytes # 3.5 10^3/uL (0.8-4.8); Lymphocytes % 54.5 %; Mean Corpuscular HGB Conc 31.7 g/dL (30.0-36.0); Mean Corpuscular Hemoglobin 27.1 pg (28.0-34.0); Mean Corpuscular Volume 85.5 fl (81-99); Mean Platelet Volume 12.2 fL (7.4-10.4); Monocytes # 0.4 10^3/uL (0.2-0.9); Monocytes % 6.6 %; Neutrophils # 2.41 10^3/uL (1.8-7.7); Neutrophils % 37.2 %; Nucleated Red Blood Cells % 0 %; Platelet Count 196 10^3/cmm (130-400); Red Blood Count 5.87 10^6/uL (4.1-5.3); Red Cell Distribution Width 17.8 % (12.1-15.1); White Blood Count 6.5 10^3/uL (4.0-10.0)
[2022-10-16 20:42] LABS: Lactate (Lactic Acid level) 2.1 mmol/L (0.5-2.2)
[2022-10-16 21:10] LABS: INR 1.34 (0.8-1.2); Partial Thromboplastin Time 26.9 SECONDS (23.9-36.7)
[2022-10-16 21:47] LABS: Alanine Aminotransferase 57 U/L (0-33); Albumin Level 3.2 g/dL (3.5-5.2); Alkaline Phosphatase 174 U/L (35-105); Anion Gap 14.6 (5-19); Aspartate Amino Transferase 52 U/L (0-32); Blood Urea Nitrogen 15 mg/dL (8-23); C Reactive Protein 7.5 mg/L (0.0-4.9); Calcium 8.7 mg/dL (8.5-10.5); Carbon Dioxide 24 mmol/L (22-29); Chloride 106 mmol/L (98-107); Creatine Phosphokinase 106 U/L (26-192); Globulin 2.8 g/dL (1.3-4.6); Glomerular Filtration Rate 83.7 mL/min (90-130); Glucose 100 mg/dL (65-115); Osmolality Calculated 293 mOsm/kg (285-295); Potassium 3.6 mmol/L (3.5-5.1); Sodium 141 mmol/L (136-145); Total Bilirubin 1.2 mg/dL (0.15-1.2)
[2022-10-16] MEDS: aspirin 81 mg Chew Tablet 324 MG PO (22:39)
[2022-10-16 22:43] VITALS: BP 158/116; PULSE 117; RESP 20; O2SAT 90
--- NOTE | 2022-10-16 22:47 | XRR_ITS ---
PROCEDURE INFORMATION: Exam: XR Chest Exam date and time: 10/16/2022 10:57 PM Age: 67 years old Clinical indication: Pain; Chest pressure; Additional info: Chest pain TECHNIQUE: Imaging protocol: Radiologic exam of the chest. Views: 1 view. COMPARISON: CR XR chest 2V* [id number] 10/08/2022 9:26 AM FINDINGS: Lungs: Moderate bilateral perihilar and lower lobe infiltrates similar to previous. Pleural spaces: Small right pleural effusion is unchanged. Heart/Mediastinum: Stable heart size. Bones/joints: Stable bones. XR/XR chest 1V portable [id number] IMPRESSION: Moderate bilateral perihilar and lower lobe infiltrates similar to previous. Correlate for pulmonary vascular congestion versus pneumonia.
--- NOTE | 2022-10-16 22:47 | CTR_ITS ---
PROCEDURE INFORMATION: Exam: CTA Chest With Contrast Exam date and time: 10/16/2022 11:08 PM Age: 67 years old Clinical indication: Abdominal pain; Generalized; Chest pressure; Additional info: Chest pain with vascular issues legs TECHNIQUE: Imaging protocol: Computed tomographic angiography of the chest with contrast. 3D rendering (Not supervised by radiologist): MIP and/or 3D reconstructed images were created by the technologist. Radiation optimization: All CT scans at this facility use at least one of these dose optimization techniques: automated exposure control; mA and/or kV adjustment per patient size (includes targeted exams where dose is matched to clinical indication); or iterative reconstruction. Contrast material: OMNI 350; Contrast volume: 100 ml; Contrast route: INTRAVENOUS (IV); REPORTING DATA: Count of CT and Cardiac NM exams in prior 12 months: This patient has received 2 known CTs and 0 known cardiac nuclear medicine studies in the 12 months prior to the current study. COMPARISON: CT angio chest PE protcl [id number] 09/27/2020 11:41 PM RADIATION DOSE METRICS: Total DLP (mGy-cm): 316.8 FINDINGS: Pulmonary arteries: No central or definite segmental PE is identified. Peripheral PE assessment is limited due to artifact. Aorta: Unremarkable. No aortic aneurysm. No aortic dissection. Lungs: There is ground-glass opacification in the lungs bilaterally. Consolidation or atelectasis is seen in the lower lobes adjacent to the pleural fluid. Pleural spaces: There are moderate xzpkk-rbhifoc-rxxo-left pleural effusions present which are increased since the comparison CT scan. Heart: Aortopulmonary window node measures 1.6 cm. Right hilar node measures 2.4 cm which is similar to previous CT chest. Lymph nodes: Calcified lymph nodes are seen in the left hilum which are unchanged and consistent with old granulomatous disease. Bones/joints: Unremarkable. No acute fracture. Soft tissues: Unremarkable. PROCEDURE INFORMATION: Exam: CT Abdomen And Pelvis With Contrast Exam date and time: 10/16/2022 11:08 PM Age: 67 years old Clinical indication: Abdominal pain; Generalized; Chest pressure; Additional info: Chest pain with vascular issues legs TECHNIQUE: Imaging protocol: Computed tomography of the abdomen and pelvis with contrast. Radiation optimization: All CT scans at this facility use at least one of these dose optimization techniques: automated exposure control; mA and/or kV adjustment per patient size (includes targeted exams where dose is matched to clinical indication); or iterative reconstruction. Contrast material: OMNI 350; Contrast volume: 100 ml; Contrast route: INTRAVENOUS (IV); REPORTING DATA: Count of CT and Cardiac NM exams in prior 12 months: This patient has received 2 known CTs and 0 known cardiac nuclear medicine studies in the 12 months prior to the current study. COMPARISON: CT angio chest PE protcl [id number] 09/27/2020 11:41 PM RADIATION DOSE METRICS: Total DLP (mGy-cm): 670.1 FINDINGS: Pleural spaces: Moderate pbxyl-pjhhnwx-vmxt-left pleural effusions are again visualized. Liver: There is heterogeneous density in the liver which may reflect passive hepatic venous congestion. The liver is mildly enlarged measuring 18 cm. Gallbladder and bile ducts: Cholecystectomy. Pancreas: Fatty atrophy of the pancreas. Spleen: Granuloma in the spleen. Adrenal glands: Normal. No mass. Kidneys and ureters: Normal. No hydronephrosis. Stomach and bowel: Unremarkable. No obstruction. No mucosal thickening. Appendix: No evidence of appendicitis. Intraperitoneal space: Unremarkable. No free air. No significant fluid collection. Vasculature: Unremarkable. No abdominal aortic aneurysm. Lymph nodes: Unremarkable. No enlarged lymph nodes. Urinary bladder: Unremarkable as visualized. Reproductive: Unremarkable as visualized. Bones/joints: Unremarkable. No acute fracture. Soft tissues: Unremarkable. CT/CT angio chest w abd pel w con IMPRESSION: 1. No pulmonary embolus identified. 2. Moderate xgjsb-qexbuar-ngvt-left pleural effusions with adjacent consolidation or atelectasis. There is also ground-glass opacities bilaterally in the lungs suggesting pulmonary vascular congestion. 3. Stable mildly prominent mediastinal and right hilar lymph nodes. IMPRESSION: 1. No acute findings in the abdomen/pelvis. 2. Hepatomegaly with findings suggestive of passive hepatic venous congestion.
[2022-10-16] MEDS: iohexol 350 mg/mL 500 mL Btl (per mL) IV (23:11)
--- NOTE | 2022-10-17 00:17 | ECG_ITS ---
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 Measurements Intervals [place] Rate: 90 P: 66 [place]: 164 QRS: -19 QRSD: 149 T: 124 QT: 434 QTc: 532 Interpretive Statements SINUS RHYTHM LEFT ATRIAL ENLARGEMENT [-0.15mV P-WAVE IN V1/V2] LEFT BUNDLE BRANCH BLOCK [120+ ms QRS DURATION, 80+ ms Q/S IN V1/V2, 85+ ms R IN I/aVL/V5/V6] Compared to ECG 03/25/2022 18:13:39 Atrial abnormality now present Left bundle-branch block now present Intraventricular conduction delay no longer present Electronically Signed On 10-17-2022 10:25:11 CDT by Jack Lopez M.D. [id number]
[2022-10-17] MEDS: FUROsemide 10 mg/mL SDV 10mL 60 MG IVP (00:58)
[2022-10-17 00:59] VITALS: BP 157/100; PULSE 93; RESP 16; O2SAT 93
[2022-10-17 01:00] VITALS: BP 150/100; PULSE 94; RESP 16; O2SAT 94
[2022-10-17 01:06] LABS: Troponin(5th) Baseline 22 ng/L (0-10)
[2022-10-17 01:23] LABS: Troponin 5 2HR 24.86 ng/L (0-10)
[2022-10-17 01:31] LABS: Troponin 5 2HR Delta 2.86 ABS# (0-10)
[2022-10-17 02:44] VITALS: BP 150/100; PULSE 94; RESP 16; TEMP 36.8; O2SAT 94
== END 2022-10-17 02:45 | disposition home or self-care (01) ==
PROVIDERS: Emergency Medicine; Emergency Provider Emergency Medicine; PCP Family Medicine Adult Medicine
DX: J81.1 Chronic pulmonary edema (principal); Z79.84 Long term (current) use of oral hypoglycemic drugs; J44.9 Chronic obstructive pulmonary disease, unspecified; E11.9 Type 2 diabetes mellitus without complications; Z85.3 Personal history of malignant neoplasm of breast; E78.5 Hyperlipidemia, unspecified; I11.0 Hypertensive heart disease with heart failure; I50.20 Unspecified systolic (congestive) heart failure; M79.89 Other specified soft tissue disorders; M79.605 Pain in left leg; M79.604 Pain in right leg
CPT/HCPCS: 36415; 71045; 71275; 74177; 80053; 82550; 83605; 84484; 85025; 85610; 85730; 86140; 93005; 93925; 93970; 96374; 99285; J1940; Q9967

== ENCOUNTER 2022-11-10 10:37 | Outpatient (CLI) | payer MEDICARE, MEDICAID, SELFPAY ==
[2022-11-10 10:59] VITALS: PULSE 81; RESP 18; O2SAT 96
[2022-11-10] MEDS: albuterol 2.5 mg/3 mL Neb INHALATION (10:59)
[2022-11-10 11:04] VITALS: PULSE 80
== END 2022-11-10 10:38 | disposition home or self-care (01) ==
LOC: RT 10:38
PROVIDERS: PCP Family Medicine Adult Medicine; Visit Provider Family Medicine Adult Medicine
DX: J44.9 Chronic obstructive pulmonary disease, unspecified (principal)
CPT/HCPCS: 94060; J7613

== ENCOUNTER → 2023-01-03 13:41 | Outpatient (BNVA) | payer MEDICARE, MEDICAID, SELFPAY | PROVIDERS: PCP Family Medicine Adult Medicine; Visit Provider Internal Medicine Cardiovascular Disease | DX: I42.8 Other cardiomyopathies (principal); I11.0 Hypertensive heart disease with heart failure; I50.22 Chronic systolic (congestive) heart failure; E11.69 Type 2 diabetes mellitus with other specified complication; E78.5 Hyperlipidemia, unspecified; Z79.84 Long term (current) use of oral hypoglycemic drugs | CPT/HCPCS: 99214 ==

== ENCOUNTER 2023-01-13 11:43 | Outpatient (CLI) | payer MEDICARE, MEDICAID, SELFPAY ==
--- NOTE | 2023-01-13 11:53 | USR_ITS ---
PROCEDURE INFORMATION: Exam: US Duplex Right Upper Extremity Arteries Exam date and time: 01/13/2023 12:02 PM Age: 67 years old Clinical indication: Other: Mottling, pain rue; Arm, upper and arm, lower and hand; Right; Patient HX: Breast cancer iwth surgery and lymph node removal around 2001. Patient is on blood thinner for atrial fobro; ; Atopm; Additional info: Blue mottling pulseless R arm, stat TECHNIQUE: Imaging protocol: Right Real-time ultrasound scan of the arteries of the right upper extremity with 2-D sandoval scale, color Doppler flow and spectral waveform analysis. COMPARISON: CT angio chest w abd pel w con 10/16/2022 11:08 PM FINDINGS: Right subclavian artery: No occlusion or significant stenosis. Normal waveform. Right axillary artery: No occlusion or significant stenosis. Normal waveform. Right brachial artery: Patent proximally with occlusion of the mid segment distally. Right radial artery: Occluded. Right ulnar artery: O[place]cluded. US/[place] [id number] IMPRESSION: Occlusion of the right mid brachial artery distally with occlusion of the radial and ulnar arteries.
--- NOTE | 2023-01-13 12:15 | USCV_ITS ---
Ellie Matthews Age: 67 Gender: F : 1955 Exam Date: 01/13/2023 12:47 Ordering Phys: Kenya Powell MD ([email or web address]) Technologist: Salome Regan [place]am Location[place] [facility] [place] Indication: copd, sob, BP: / HR: 245 Rhythm: Atrial fibrillation Technical Quality: Adequate MEASUREMENTS (Male / Female) Normal Values 2D ECHO LV Diastolic Diameter PLAX 4.7 cm 4.2 - 5.9 / 3.9 - 5.3 cm LV Systolic Diameter PLAX 3.6 cm IVS Diastolic Thickness 0.7 cm 0.6 - 1.0 / 0.6 - 0.9 cm IVS Systolic Thickness 1.4 cm LVPW Diastolic Thickness 0.8 cm 0.6 - 1.0 / 0.6 - 0.9 cm LVPW Systolic Thickness 1.4 cm LVOT Diameter 2.0 cm LV Ejection Fraction 2D Teich 45.3 % LV Ejection Fraction MOD 2C 44.6 % LV Ejection Fraction 2C AL 45.4 % LA Diameter 3.9 cm LA Width 2.3 cm LA Height 4.3 cm RA Width 5.2 cm RA Height 5.5 cm Aorta at Sinotubular Diameter 2.5 cm IVC Diameter 2.0 cm M-MODE Aortic Annulus Diameter 3.4 cm LA Ao Ratio MM 1.2 MV E Point Septal Separation 2.8 cm DOPPLER AV Peak Velocity 108.0 cm/s LVOT Peak Velocity 90.0 cm/s AV Area Cont Eq vti 3.8 cm squared AV Area Cont Eq pk 2.6 cm squared MV Peak Velocity 116.0 cm/s MV Area PHT 5.8 cm squared Mitral E to A Ratio 6.5 MV E' Velocity 60.0 cm/s Mitral E to MV E' Ratio 43.3 Mitral E to LV E' Lateral Ratio 41.7 Mitral E to LV E' Septal Ratio 44.9 TR Peak Velocity 275.5 cm/s TR Peak Gradient 30.4 mmHg Right Atrial Pressure 8.0 mmHg Pulmonary Artery Systolic Pressu 38.4 mmHg PV Peak Velocity 100.0 cm/s RV Acceleration Time 0.1 s RV Ejection Time 0.2 s RV AcT/ET 0.3 FINDINGS Left Ventricle Mildly increased left ventricular cavity size. Severely decreased left ventricular systolic function. Left ventricular ejection fraction is estimated at 20%. Severe global hypokinesis. Rhythm precludes evaluation of diastolic function. Abnormal septal motion. Right Ventricle Normal right ventricular size and mildly decreased systolic function. Right ventricular systolic pressure 38.4 mmHg. Right Atrium Moderately increased right atrial size. Left Atrium Moderately increased left atrial size. Mitral Valve Mildly thickened mitral valve. Mild mitral annular calcification. No mitral valve stenosis. Mild mitral valve regurgitation. Aortic Valve Probably trileaflet aortic valve. No aortic valve stenosis. Moderate aortic valve regurgitation. Tricuspid Valve Structurally normal tricuspid valve. No tricuspid valve stenosis. Jfmn-gh-hisvlien tricuspid valve regurgitation. Pulmonic Valve Pulmonic valve not well visualized. No pulmonary valve stenosis. Trace pulmonary valve regurgitation. Pericardium No pericardial effusion. Aorta Normal size aortic root. IVC Normal IVC dimension with <50% respiratory change of the inferior vena cava. CONCLUSIONS 1. Mildly increased left ventricular cavity size. Severely decreased left ventricular systolic function. Left ventricular ejection fraction is estimated at 20%. Severe global hypokinesis 2. Aolh-fk-lehcthel tricuspid valve regurgitation. 3. Moderate aortic valve regurgitation. 4. Pulmonary artery pressure estimated at 38 mm Hg. 5. When compared to study dated 12/23/20, left ventricular systolic function seems to have decresaed. Interpretation is limited by persistent tachycardia. Kenya Powell MD (Electronically Signed) Final Date: 20 January 2023 13:05 S
== END 2023-01-13 11:44 | disposition home or self-care (01) ==
LOC: RAD 11:45
PROVIDERS: PCP Family Medicine Adult Medicine; Visit Provider Internal Medicine Cardiovascular Disease
DX: I08.2 Rheumatic disorders of both aortic and tricuspid valves (principal); R06.02 Shortness of breath; R63.4 Abnormal weight loss; I48.91 Unspecified atrial fibrillation; I48.92 Unspecified atrial flutter; I50.20 Unspecified systolic (congestive) heart failure; I77.89 Other specified disorders of arteries and arterioles
CPT/HCPCS: 93306; 93931

== ENCOUNTER 2023-01-13 13:49 | Emergency (ER) | payer MEDICARE, MEDICAID, SELFPAY ==
[2023-01-13] VITALS (10 sets, daily range): BP systolic 92–132; BP diastolic 63–111; PULSE 68–139; RESP 16–20; TEMP 35.7–36.6; O2SAT 95–98
--- NOTE | 2023-01-13 13:59 | ED_ITS ---
HPI - Extremity Problem General: Chief complaint: Extremity Problem,Nontraumatic Stated complaint: pain/swelling in right arm sent by Shawn Time Seen by Provider: 01/13/23 13:58 History of Present Illness: Ms. Matthews is a 67-year-old lady with significant past medical history of diabe wily, hypertension, hyperlipidemia, congestive heart failure, atrial fibrillation on anticoagulation presented the emergency department for concern over upper extremity perfusion change. She notes acute onset symptoms without known specific provoking event 2 days ago. Since that time has had pain in addition to intermittent numbness and loss of dexterity in the right upper extremity essentially from the mid humeral region down. She occasionally notices swelling. She denies preceding event such as vascular access. She denies missing any doses of anticoagulation on Xarelto. Moderate to severe intensity. Apparently saw outpatient and an ultrasound was performed revealing marked abnormality. No other specific changes in health, exacerbating, or alleviating factors identified. Patient does have a remote history of right-sided breast cancer though reports this was cured in 1999 or so. Onset (ago): day(s) Pain Consistency: constant Relieving factors: other Associated symptoms: Reports other Review of Systems General: Reports: 10 or more systems reviewed and unremarkable except in HPI and below PFSH ED PFSH: Medical History Anxiety about health Atrial fibrillation and flutter Chronic coughing COPD (chronic obstructive pulmonary disease) PFT 11/30/2021 3 with moderate restriction and no significant response to bronchodilator, Dr. Almeida Diabetes History of breast cancer Right breast cancer surgery 20+ years ago Hyperlipidemia associated with type 2 diabetes mellitus Hypertension Nonpalpable pulse Obesity (BMI 30.0-34.9) Painful and cold lower extremity without pulse with history of revascularization Systolic heart failure Weight loss, unintentional Surgical History H/O lumpectomy History of lymph node dissection of right axilla Social History Smoking and tobacco status: never smoked Second hand smoke exposure: No Smoking risk assessment/counseling performed?: No Alcohol intake: never Desire information about alcohol rehabilitation?: No Counseling given: No Substance/Drug Use: never Desire information about substance/drug rehabilitation?: No Counseling given: No Marital status: Number of children: 2 Number of grandchildren: 5 Current occupational status: disabled Physical Exam Const: COMMON NORMALS: alert GENERAL APPEARANCE: cooperative and well developed HENMT: COMMON NORMALS: normocephalic and atraumatic HEAD & SCALP: normocephalic and atraumatic Eye: COMMON NORMALS: conjunctivae normal CONJUNCTIVA: Yes conjunctivae normal SCLERA: sclerae normal Neck/C-Spine: COMMON NORMALS: supple GENERAL: Yes trachea midline Resp: COMMON NORMALS: normal respiratory effort EFFORT & INSPECTION: Yes able to speak in complete sentences Cardio: RATE: tachycardic RHYTHM: abnormal rhythm irregularly irregular GI: COMMON NORMALS: Soft to palpation PALPATION: Yes Soft to palpation and No Tenderness to palpation present (GI) Extremity: NARRATIVE EXTREMITY EXAM: Right upper extremity with mild swelling compared to contralateral side. Discoloration of the skin with coolness to touch. No palpable DP or PT. Delayed cap refill. Loss of dexterity though movement appears grossly intact. GENERAL: Yes normal exam except as noted and No edema Neuro: COMMON NORMALS: moves all extremities SENSORIUM/ORIENTATION: Yes alert and No Orientation impaired Psych: COMMON NORMALS: mental status grossly normal and Normal thought process present THOUGHT PROCESS: Normal thought process present Course Vital Signs: Vital signs: Vital Signs Temperature 98 F 01/13/23 18:53 Pulse Rate 78 01/13/23 18:53 Respiratory Rate 18 01/13/23 18:53 Blood Pressure 92/63 01/13/23 18:53 Pulse Oximetry 98 01/13/23 18:53 Oxygen Delivery Me thod Nasal Cannula 01/13/23 18:30 Oxygen Flow Rate 2 01/13/23 18:00 MDM - Extremity (Nontraumatic) Medical Decision Making 67-year-old lady presenting with vascular concern for 2 days. Exam as above. EKG notable for atrial fibrillation with rapid ventricular response, left bundle branch block, no STEMI. No leukocytosis, mild hemoconcentration. Normal electrolytes with exception of magnesium. Negative range 2-hour delta troponin. Imaging reveals occlusion of the right mid brachial artery with occlusion of the radial and ulnar artery. During ED course received fluids, Cardizem, analgesia, heparin. Patient requires emergent evaluation by a vascular surgeon and was accepted as transfer by Dr. Davila at [facility] in [place]. The results of ED evaluation were discussed with the patient including plan for transfer due to requirement for level of care not available if discharged to prevent significant worsening/deterioration. Patient agreeable with plan. Medical Records I reviewed the patient's medical records. Lab Data I reviewed the patient's lab results. 01/13/23 14:14 01/13/23 14:14 Laboratory Results WBC 5.8 10^3/uL (4.0-10.0) 01/13/23 14:14 RBC 5.75 10^6/uL (4.1-5.3) H 01/13/23 14:14 Hgb 16.3 g/dL (11.5-15.3) H 01/13/23 14:14 Hct 50.6 % (37.0-47.0) H 01/13/23 14:14 MCV 88.0 fl (81-99) 01/13/23 14:14 MCH 28.3 pg (28.0-34.0) 01/13/23 14:14 MCHC 32.2 g/dL (30.0-36.0) 01/13/23 14:14 RDW 22.8 % (12.1-15.1) H 01/13/23 14:14 Plt Count 187 10^3/cmm (130-400) 01/13/23 14:14 MPV 10.6 fL (7.4-10.4) H 01/13/23 14:14 Neut % (Auto) 38.5 % 01/13/23 14:14 Lymph % (Auto) 51.8 % 01/13/23 14:14 [place] % (Auto) 7.5 % 01/13/23 14:14 Eos % (Auto) 1.0 % 01/13/23 14:14 Baso % (Auto) 1.0 % 01/13/23 14:14 Neut # (Auto) 2.22 10^3/uL (1.8-7.7) 01/13/23 14:14 Lymph # (Auto) 3.0 10^3/uL (0.8-4.8) 01/13/23 14:14 [place] # (Auto) 0.4 10^3/uL (0.2-0.9) 01/13/23 14:14 Eos # (Auto) 0.1 10^3/uL (0.0-0.8) 01/13/23 14:14 Baso # (Auto) 0.1 10^3/uL (0.0-0.1) 01/13/23 14:14 Nucleated RBC % (auto) 0.3 % 01/13/23 14:14 Nucleated RBCs # 0.0 /100WBC 01/13/23 14:14 PT 18.70 SECONDS (12.1-14.9) H 01/13/23 14:14 INR 1.51 (0.8-1.2) H 01/13/23 14:14 APTT 32.8 SECONDS (23.9-36.7) 01/13/23 14:14 Sodium 137 mmol/L (136-145) 01/13/23 14:14 Potassium 4.6 mmol/L (3.5-5.1) 01/13/23 14:14 Chloride 101 mmol/L (98-107) 01/13/23 14:14 Carbon Dioxide 23 mmol/L (22-29) 01/13/23 14:14 Anion Gap 17.6 (5-19) 01/13/23 14:14 BUN 20 mg/dL (8-23) 01/13/23 14:14 Creatinine 0.8 mg/dL (0.5-0.9) 01/13/23 14:14 GFR Calculation 71.8 mL/min (90-130) L 01/13/23 14:14 Glucose 87 mg/dL (65-115) 01/13/23 14:14 Calculated Osmolality 286 mOsm/kg (285-295) 01/13/23 14:14 Lactic Acid 1.9 mmol/L (0.5-2.2) 01/13/23 14:14 Calcium 9.4 mg/dL (8.5-10.5) 01/13/23 14:14 Magnesium 1.6 mg/dL (1.7-2.3) L 01/13/23 14:14 Total Bilirubin 2.1 mg/dL (0.15-1.2) H 01/13/23 14:14 AST 48 U/L (0-32) H 01/13/23 14:14 ALT 45 U/L (0-33) H 01/13/23 14:14 Alkaline Phosphatase 184 U/L (35-105) H 01/13/23 14:14 Troponin T Baseline 23 ng/L (0-10) H 01/13/23 14:14 Troponin T 120 Minute 18.83 ng/L (0-10) H 01/13/23 16:16 Delta Troponin T -4.17 ABS# (0-10) L 01/13/23 16:16 Total Protein 6.8 g/dL (6.6-8.7) 01/13/23 14:14 Albumin 3.8 g/dL (3.5-5.2) 01/13/23 14:14 Globulin 3.0 g/dL (1.3-4.6) 01/13/23 14:14 TSH 1.39 uIU/mL (0.27-4.20) 01/13/23 14:14 Critical Care Time Critical Care Time: Critical Care Time: Yes Total Critical Care Time: 55 Attestation: Due to a high probability of clinically significant, possibly life threatening deterioration, the patient required my highest level of attention and preparedness to intervene emergently and I personally spent this critical care time directly and personally managing the patient. This critical care time included obtaining a history; examining the patient; pulse oximetry; ordering and review of laboratory and imaging studies; arranging urgent treatment with development of a management plan; evaluation of patient's response to treatment; frequent reassessment; and, discussions with other providers as applicable. It was exclusive of separately billable procedures. 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
--- NOTE | 2023-01-13 14:10 | ECG_ITS ---
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 Measurements Intervals [place] Rate: 130 P: 0 [place]: 0 QRS: 5 QRSD: 146 T: 166 QT: 343 QTc: 505 Interpretive Statements ATRIAL FIBRILLATION WITH RAPID VENTRICULAR RESPONSE LEFT BUNDLE BRANCH BLOCK [120+ ms QRS DURATION, 80+ ms Q/S IN V1/V2, 85+ ms R IN I/aVL/V5/V6] Compared to ECG 10/17/2022 00:30:51 Sinus rhythm no longer present Atrial abnormality no longer present Electronically Signed On 01-13-2023 15:27:56 CDT by Amador Nicolas M.D. [email or web address].Happy Days/store/[id number] f
[2023-01-13 14:38] LABS: Basophils # 0.1 10^3/uL (0.0-0.1); Eosinophils # 0.1 10^3/uL (0.0-0.8); Hematocrit 50.6 % (37.0-47.0); Hemoglobin 16.3 g/dL (11.5-15.3); Lymphocytes % 51.8 %; Mean Corpuscular HGB Conc 32.2 g/dL (30.0-36.0); Mean Corpuscular Hemoglobin 28.3 pg (28.0-34.0); Mean Platelet Volume 10.6 fL (7.4-10.4); Monocytes # 0.4 10^3/uL (0.2-0.9); Monocytes % 7.5 %; Neutrophils # 2.22 10^3/uL (1.8-7.7); Neutrophils % 38.5 %; Nucleated Red Blood Cells % 0.3 %; Platelet Count 187 10^3/cmm (130-400); Red Blood Count 5.75 10^6/uL (4.1-5.3); Red Cell Distribution Width 22.8 % (12.1-15.1); White Blood Count 5.8 10^3/uL (4.0-10.0)
[2023-01-13] MEDS: morphine 4 mg/mL SDV 1 mL IVP (14:50)
[2023-01-13 14:52] LABS: INR 1.51 (0.8-1.2); Partial Thromboplastin Time 32.8 SECONDS (23.9-36.7)
[2023-01-13 14:56] LABS: Lactic Sepsis W/Reflex 1.9 mmol/L (0.5-2.2)
[2023-01-13] MEDS: sodium chloride 0.9% 500 ML 999 ML IV (14:56)
[2023-01-13 15:03] LABS: Troponin(5th) Baseline 23 ng/L (0-10)
[2023-01-13 15:07] LABS: Alanine Aminotransferase 45 U/L (0-33); Albumin Level 3.8 g/dL (3.5-5.2); Alkaline Phosphatase 184 U/L (35-105); Anion Gap 17.6 (5-19); Aspartate Amino Transferase 48 U/L (0-32); Blood Urea Nitrogen 20 mg/dL (8-23); Calcium 9.4 mg/dL (8.5-10.5); Carbon Dioxide 23 mmol/L (22-29); Chloride 101 mmol/L (98-107); Creatinine Clr Calc Pharmacy 72.7342; Glomerular Filtration Rate 71.8 mL/min (90-130); Glucose 87 mg/dL (65-115); Magnesium 1.6 mg/dL (1.7-2.3); Osmolality Calculated 286 mOsm/kg (285-295); Potassium 4.6 mmol/L (3.5-5.1); Sodium 137 mmol/L (136-145); Thyroid Stimulating Hormone 1.39 uIU/mL (0.27-4.20); Total Bilirubin 2.1 mg/dL (0.15-1.2); Total Protein 6.8 g/dL (6.6-8.7)
[2023-01-13] MEDS: dilTIAZem 5 mg/mL SDV 5 mL 15 MG IVP (15:28)
[2023-01-13] MEDS: dilTIAZem 100 MG in sodium chloride 0.9% (add-van) 100 ML IV (15:32)
[2023-01-13] MEDS: heparin drip 25,000 UNIT/500 ML PREMIX 21.72 UNIT IV (15:40)
--- NOTE | 2023-01-13 16:22 | ECG_ITS ---
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 Measurements Intervals [place] Rate: 68 P: 0 SD: 0 QRS: 2 QRSD: 133 T: 173 QT: 470 QTc: 500 Interpretive Statements ATRIAL FLUTTER INTRAVENTRICULAR CONDUCTION DELAY [130+ ms QRS DURATION] ANTEROSEPTAL MYOCARDIAL INFARCTION , OF INDETERMINATE AGE [40+ ms Q WAVE IN V1-V4] Compared to ECG 01/13/2023 14:04:28 Intraventricular conduction delay now present Myocardial infarct finding now present Atrial fibrillation no longer present Left bundle-branch block no longer present Electronically Signed On 01-13-2023 16:40:59 CDT by Amador Nicolas M.D. [id number]
[2023-01-13 16:46] LABS: Troponin 5 2HR 18.83 ng/L (0-10)
[2023-01-13 16:48] LABS: Troponin 5 2HR Delta -4.17 ABS# (0-10)
--- NOTE | 2023-01-13 17:31 | DCPLANNER ---
Called [facility] and spoke with Chris for a status check on a bed. Chris advised atleast 1-2 more hours until a bed is available and they will call back once he has a bed.
== END 2023-01-13 19:46 | disposition short-term general hospital (02) ==
PROVIDERS: Emergency Provider Emergency Medicine; PCP Family Medicine Adult Medicine
DX: I74.2 Embolism and thrombosis of arteries of the upper extremities (principal); I48.20 Chronic atrial fibrillation, unspecified; J44.9 Chronic obstructive pulmonary disease, unspecified; E11.9 Type 2 diabetes mellitus without complications; Z85.3 Personal history of malignant neoplasm of breast; E78.5 Hyperlipidemia, unspecified; I11.0 Hypertensive heart disease with heart failure; I50.20 Unspecified systolic (congestive) heart failure
CPT/HCPCS: 36415; 80053; 83605; 83735; 84443; 84484; 85025; 85610; 85730; 87040; 93005; 96374; 96375; 99285; 99291; J1644; J2270; J3490; J7030

== ENCOUNTER → 2023-01-24 14:38 | Outpatient (BNVA) | payer MEDICARE, MEDICAID, SELFPAY | PROVIDERS: PCP Family Medicine Adult Medicine; Visit Provider Internal Medicine Cardiovascular Disease | DX: I48.0 Paroxysmal atrial fibrillation (principal); I48.92 Unspecified atrial flutter; Z79.01 Long term (current) use of anticoagulants; I42.8 Other cardiomyopathies; Z98.890 Other specified postprocedural states; I11.0 Hypertensive heart disease with heart failure; I50.22 Chronic systolic (congestive) heart failure; E11.69 Type 2 diabetes mellitus with other specified complication; Z79.84 Long term (current) use of oral hypoglycemic drugs; E78.5 Hyperlipidemia, unspecified | CPT/HCPCS: 99215 ==

== ENCOUNTER 2023-01-26 09:24 | Outpatient (CLI) | payer MEDICARE, MEDICAID, SELFPAY ==
[2023-01-26 10:05] LABS: Basophils % 0.7 %; Eosinophils # 0.1 10^3/uL (0.0-0.8); Eosinophils % 1.1 %; Hematocrit 45.9 % (37.0-47.0); Hemoglobin 14.5 g/dL (11.5-15.3); Lymphocytes % 54.5 %; Mean Corpuscular HGB Conc 31.6 g/dL (30.0-36.0); Mean Corpuscular Hemoglobin 27.3 pg (28.0-34.0); Mean Corpuscular Volume 86.3 fl (81-99); Monocytes # 0.3 10^3/uL (0.2-0.9); Neutrophils # 2.05 10^3/uL (1.8-7.7); Neutrophils % 37.5 %; Nucleated Red Blood Cells % 0 %; Platelet Count 129 10^3/cmm (130-400); Red Blood Count 5.32 10^6/uL (4.1-5.3); Red Cell Distribution Width 22.4 % (12.1-15.1); White Blood Count 5.5 10^3/uL (4.0-10.0)
[2023-01-26 10:25] LABS: Alanine Aminotransferase 151 U/L (0-33); Albumin Level 3.1 g/dL (3.5-5.2); Alkaline Phosphatase 187 U/L (35-105); Anion Gap 14.3 (5-19); Aspartate Amino Transferase 134 U/L (0-32); Blood Urea Nitrogen 16 mg/dL (8-23); Calcium 9.2 mg/dL (8.5-10.5); Carbon Dioxide 25 mmol/L (22-29); Chloride 102 mmol/L (98-107); Globulin 3.2 g/dL (1.3-4.6); Glomerular Filtration Rate 62.6 mL/min (90-130); Glucose 94 mg/dL (65-115); Osmolality Calculated 285 mOsm/kg (285-295); Potassium 4.3 mmol/L (3.5-5.1); Sodium 137 mmol/L (136-145); Total Bilirubin 1.4 mg/dL (0.15-1.2); Total Protein 6.3 g/dL (6.6-8.7)
[2023-01-26 10:26] LABS: INR 10.54 (0.8-1.2)
== END 2023-01-26 09:25 | disposition home or self-care (01) ==
PROVIDERS: Internal Medicine Cardiovascular Disease; PCP Family Medicine Adult Medicine; Visit Provider Family Medicine Adult Medicine
DX: R79.1 Abnormal coagulation profile (principal); T45.511A Poisoning by anticoagulants, accidental (unintentional), initial encounter; Z79.01 Long term (current) use of anticoagulants; K92.1 Melena; I48.91 Unspecified atrial fibrillation; I48.92 Unspecified atrial flutter
CPT/HCPCS: 80053; 85025; 85610; 85730

== ENCOUNTER 2023-01-28 09:08 | Outpatient (CLI) | payer MEDICARE, MEDICAID, SELFPAY ==
[2023-01-28 09:58] LABS: Prothrombin Time (Patient) 61.6 Seconds (12.0-15.1)
[2023-01-28 10:02] LABS: INR 6.78 (0.83-1.21)
== END 2023-01-28 09:09 | disposition home or self-care (01) ==
LOC: LAB 09:13
PROVIDERS: PCP Family Medicine Adult Medicine; Visit Provider Internal Medicine Cardiovascular Disease
DX: I48.91 Unspecified atrial fibrillation (principal); I48.92 Unspecified atrial flutter
CPT/HCPCS: 85610

== ENCOUNTER 2023-01-31 08:55 | Outpatient (CLI) | payer MEDICARE, MEDICAID, SELFPAY ==
[2023-01-31 09:50] LABS: Prothrombin Time (Patient) 23.4 Seconds (12.0-15.1)
== END 2023-01-31 08:56 | disposition home or self-care (01) ==
LOC: LAB 09:03
PROVIDERS: Internal Medicine Cardiovascular Disease; PCP Family Medicine Adult Medicine; Visit Provider Family Medicine Adult Medicine
DX: I48.91 Unspecified atrial fibrillation (principal); I48.92 Unspecified atrial flutter
CPT/HCPCS: 36415; 85610

== ENCOUNTER 2023-02-10 09:30 | Outpatient (CLI) | payer MEDICARE, MEDICAID, SELFPAY ==
[2023-02-10 10:37] LABS: INR 4.33 (0.83-1.21); Prothrombin Time (Patient) 43.2 Seconds (12.0-15.1)
== END 2023-02-10 09:31 | disposition home or self-care (01) ==
PROVIDERS: PCP Family Medicine Adult Medicine; Visit Provider Internal Medicine Cardiovascular Disease
DX: I51.3 Intracardiac thrombosis, not elsewhere classified (principal)
CPT/HCPCS: 36415; 85610

== ENCOUNTER 2023-02-17 09:42 | Outpatient (CLI) | payer MEDICARE, MEDICAID, SELFPAY ==
[2023-02-17 10:41] LABS: INR 2.39 (0.83-1.21)
== END 2023-02-17 09:43 | disposition home or self-care (01) ==
PROVIDERS: PCP Family Medicine Adult Medicine; Visit Provider Internal Medicine Cardiovascular Disease
DX: I51.3 Intracardiac thrombosis, not elsewhere classified (principal)
CPT/HCPCS: 36415; 85610

== ENCOUNTER → 2023-02-23 10:20 | Outpatient (BNVA) | payer MEDICARE, MEDICAID, SELFPAY | PROVIDERS: PCP Family Medicine Adult Medicine; Visit Provider Internal Medicine Pulmonary Disease | DX: R06.09 Other forms of dyspnea (principal); Z91.09 Other allergy status, other than to drugs and biological substances; I50.22 Chronic systolic (congestive) heart failure; J45.909 Unspecified asthma, uncomplicated | CPT/HCPCS: 82785; 86003; 99204 ==

== ENCOUNTER → 2023-03-28 13:50 | Outpatient (BNVA) | payer MEDICARE, MEDICAID, SELFPAY | PROVIDERS: PCP Family Medicine Adult Medicine; Visit Provider Nurse Practitioner Family | DX: I50.9 Heart failure, unspecified (principal); I48.91 Unspecified atrial fibrillation; I48.92 Unspecified atrial flutter; I45.9 Conduction disorder, unspecified; I10 Essential (primary) hypertension | CPT/HCPCS: 36415; 80048; 83880; 93005; 99214 ==

== ENCOUNTER → 2023-04-12 13:48 | Outpatient (BNVA) | payer MEDICARE, MEDICAID, SELFPAY | PROVIDERS: PCP Family Medicine Adult Medicine; Visit Provider Internal Medicine Cardiovascular Disease | DX: I48.91 Unspecified atrial fibrillation (principal); I48.92 Unspecified atrial flutter; I11.0 Hypertensive heart disease with heart failure; I50.22 Chronic systolic (congestive) heart failure; I42.8 Other cardiomyopathies; Z98.890 Other specified postprocedural states; I51.3 Intracardiac thrombosis, not elsewhere classified; Q21.12 Patent foramen ovale; E11.69 Type 2 diabetes mellitus with other specified complication; E78.5 Hyperlipidemia, unspecified; Z79.01 Long term (current) use of anticoagulants; Z79.84 Long term (current) use of oral hypoglycemic drugs | CPT/HCPCS: 99214 ==

== ENCOUNTER 2023-05-27 08:46 | Outpatient (CLI) | payer MEDICARE, MEDICAID, SELFPAY ==
--- NOTE | 2023-05-27 09:15 | USCV_ITS ---
Ellie Matthews Age: 68 Gender: F : 1955 Exam Date: 05/27/2023 09:11 Ordering Phys: Kenya Powell MD ([email or web address]) Technologist: ANTHONY Exam Location: [facility] – [place] Indication: CHF BP: 134 / 80 HR: 86 Rhythm: Sinus Technical Quality: Adequate MEASUREMENTS (Male / Female) Normal Values 2D ECHO LVOT Diameter 1.9 cm LV Ejection Fraction MOD 2C 20.6 % LV Ejection Fraction 2C AL 20.4 % LA Diameter 3.5 cm LA Width 3.7 cm LA Height 4.9 cm RA Width 3.7 cm RA Height 4.6 cm Aorta at Sinotubular Diameter 1.9 cm IVC Diameter 2.0 cm M-MODE Aortic Annulus Diameter 2.6 cm LA Ao Ratio MM 1.3 MV E Point Septal Separation 1.2 cm DOPPLER Right Atrial Pressure 3.0 mmHg FINDINGS Left Ventricle Dilated left ventricle. Severely decreased left ventricular systolic function. Left ventricular ejection fraction is estimated at 20 %. Severe global left ventricular hypokinesis. Right Ventricle Normal right ventricular size and systolic function. Right Atrium Normal right atrial size. Left Atrium Mildly increased left atrial size. Mitral Valve Moderately thickened mitral valve. Moderate mitral annular calcification. Aortic Valve Aortic valve not well visualized. Tricuspid Valve Structurally normal tricuspid valve. Pulmonic Valve Pulmonic valve not well visualized. Pericardium No pericardial effusion. Aorta Normal size aortic root and proximal ascending aorta. IVC Normal IVC dimension with >50% respiratory change of the inferior vena cava. CONCLUSIONS 1. Dilated left ventricle. Severely decreased left ventricular systolic function. Left ventricular ejection fraction is estimated at 20 %. Severe global left ventricular hypokinesis. 2. Echo contrast (Optison) was used for better visualization. Kenya Powell MD (Electronically Signed) Final Date: 30 May 2023 17:46 S
[2023-05-27] MEDS: perflutren protein-a microsphr 0.22 mg/mL SDV 3 mL IV (09:34)
== END 2023-05-27 08:47 | disposition home or self-care (01) ==
LOC: RAD 08:46
PROVIDERS: PCP Family Medicine Adult Medicine; Visit Provider Internal Medicine Cardiovascular Disease
DX: I50.23 Acute on chronic systolic (congestive) heart failure (principal)
CPT/HCPCS: C8924; Q9956

== ENCOUNTER → 2023-06-17 09:19 | Outpatient (BNVA) | payer MEDICARE, MEDICAID, SELFPAY | PROVIDERS: PCP Family Medicine Adult Medicine; Visit Provider Nurse Practitioner Family | DX: I11.0 Hypertensive heart disease with heart failure (principal); I50.9 Heart failure, unspecified | CPT/HCPCS: 99214 ==

== ENCOUNTER → 2023-07-07 10:38 | Outpatient (BNVA) | payer MEDICARE, MEDICAID, SELFPAY | PROVIDERS: PCP Family Medicine Adult Medicine; Referring Provider Nurse Practitioner Family; Visit Provider Thoracic Surgery (Cardiothoracic Vascular Surgery) | DX: I11.0 Hypertensive heart disease with heart failure (principal); I50.42 Chronic combined systolic (congestive) and diastolic (congestive) heart failure | CPT/HCPCS: 99203 ==

== ENCOUNTER 2023-07-18 07:12 | Day surgery (SDC) | payer MEDICARE, MEDICAID, SELFPAY ==
[2023-07-14 10:52] LABS: Basophils # 0.1 10^3/uL (0.0-0.1); Basophils % 0.6 %; Eosinophils # 0.2 10^3/uL (0.0-0.8); Eosinophils % 3.1 %; Hematocrit 38.9 % (36-47); Lymphocytes # 1.9 10^3/uL (0.8-4.8); Lymphocytes % 24.4 %; Mean Corpuscular HGB Conc 33.2 g/dL (30-55); Mean Corpuscular Hemoglobin 31.2 pg (27-33); Mean Corpuscular Volume 94.2 fl (85-98); Mean Platelet Volume 10.5 fL (7.4-10.4); Monocytes # 0.7 10^3/uL (0.2-0.9); Monocytes % 9.4 %; Neutrophils # 4.81 10^3/uL (1.8-7.7); Neutrophils % 62.2 %; Nucleated Red Blood Cells % 0 %; Platelet Count 192 10^3/cmm (157-399); Red Blood Count 4.13 10^6/uL (3.85-5.65); Red Cell Distribution Width 13.8 % (12.1-15.1); White Blood Count 7.74 10^3/uL (3.29-11.43)
[2023-07-14 10:56] LABS: Add Urine Microscopic? YES; Bilirubin Urine Neg (Negative); Blood Urine Neg (Negative); Glucose Urine UA Norm (Normal); Ketones Urine Negative (Negative); Leukocyte Esterase Urine 1+ (Negative); Nitrate Urine Negative (Negative); Protein Urine Neg (Negative); Urine Appearance Clear (CLEAR); Urine Color Yellow (Yellow); Urobilinogen Urine Norm (Negative); pH Urine 5 (5-7)
[2023-07-14 11:00] LABS: RBC Urine 0-4 /hpf (0-2); Squamous Epithelial Cell Urine 0-4 /hpf (0-5); Transitional Epi Cells Urine 0-4 /hpf; WBC Urine 0-4 /hpf (0-5)
[2023-07-14 11:01] LABS: Add Urine Culture? No
[2023-07-14 11:20] LABS: Anion Gap 12.2 (5-19); Blood Urea Nitrogen 22 mg/dL (8-23); Calcium 9.9 mg/dL (8.5-10.5); Carbon Dioxide 27 mmol/L (22-29); Chloride 103 mmol/L (98-107); Glomerular Filtration Rate 71.5 mL/min (90-130); Glucose 93 mg/dL (65-115); Osmolality Calculated 289 mOsm/kg (285-295); Potassium 4.2 mmol/L (3.5-5.1); Sodium 138 mmol/L (136-145)
--- NOTE | 2023-07-14 11:37 | P.ANESASSM_ITS ---
Pre-Anesthetic Assessment Height/Weight: Height 1.68 m Operation Date: 07/18/23 08:45 Proposed Procedures p Defibrillator Placement 00608,I42.8 I50.2(Not Applicable) - Kelvin Chris MD Familial anesthetic complications: None Social No alcohol and No tobacco 2nd hand smoke exposure Airway Mallampati: Class II Dentition: false Pulmonary Chronic Obstructive Pulmonary Disease CV/HEM Atrial Fibrillation, Congestive Heart Failure, Hypertension and Peripheral Vascular Disease L atrial thrombus Echo CONCLUSIONS 1. Dilated left ventricle. Severely decreased left ventricular systolic function. Left ventricular ejection fraction is estimated at 20 %. Severe global left ventricular hypokinesis. 2. Echo contrast (Optison) was used for better visualization. Metabolic Diabetes Mellitus Anesthetic Plan ASA status: 4 Anesthesia: MAC Other: patient counseled on requirements for minimal sedation d/t to her EF and she is aware that she will probably experience awareness during procedure Risk of > 500 ml blood loss (7ml/kg in children): No Medications/Allergies Home Medications Medication Instructions Recorded Confirmed Last Taken Type glipizide 2.5 mg tablet, extended 2.5 mg PO DAILY diabetes #30 tabs 08/25/22 07/14/23 07/13/23 Rx release 24 hr sertraline 50 mg tablet 50 mg PO DAILY mental health #30 09/22/22 07/14/23 07/13/23 Rx tabs bumetanide 2 mg tablet 2 mg PO BID 03/25/23 07/14/23 07/13/23 History potassium chloride 20 mEq 20 meq PO BID 03/25/23 07/14/23 07/12/23 History tablet,extended release metformin 500 mg tablet 500 mg PO DAILY Glucose control 05/10/23 07/14/23 07/13/23 Rx #30 tabs amiodarone 200 mg tablet 200 mg PO DAILY #90 tabs 05/12/23 07/14/23 07/13/23 Rx apixaban 5 mg tablet (Eliquis) 5 mg PO BID #180 tabs 05/12/23 07/14/23 07/14/23 Rx lisinopril 40 mg tablet 40 mg PO DAILY blood 06/01/23 07/14/23 07/13/23 Rx pressure/kidney #30 tabs Allergies Allergy/AdvReac Type Severity Reaction Status Date / Time No Known Allergies Allergy Verified 07/14/23 10:17 [facility] Anesthesia Medical History CHF (congestive heart failure) PVD (peripheral vascular disease) Nonpalpable pulse Painful and cold lower extremity without pulse with history of revascularization Atrial fibrillation and flutter COPD (chronic obstructive pulmonary disease) PFT 11/30/2021 3 with moderate restriction and no significant response to bronchodilator, Dr. Almeida History of breast cancer Right breast cancer surgery 20+ years ago Hyperlipidemia associated with type 2 diabetes mellitus Diabetes Anxiety about health Obesity (BMI 30.0-34.9) Hypertension Surgical History History of embolectomy History of lymph node dissection of right axilla H/O lumpectomy Social History Smoking and tobacco/nicotine status: never used tobacco/nicotine Second hand smoke exposure: No Alcohol intake: never Substance/Drug Use: never Marital status: Number of children: 2 Number of grandchildren: 5 Current occupational status: disabled Data Anesthesia 07/14/23 10:37 07/14/23 10:37 Short CBC 07/14/23 Range/Units 10:37 WBC 7.74 (3.29-11.43) 10^3/uL Hgb 12.90 (11.27-16.99) g/dL Hct 38.9 (36-47) % MCV 94.2 (85-98) fl Plt Count 192 (157-399) 10^3/cmm Neut % (Auto) 62.2 % Neut # (Auto) 4.81 (1.8-7.7) 10^3/uL BMP 07/14/23 10:37 Sodium 138 Potassium 4.2 Chloride 103 Carbon Dioxide 27 BUN 22 Creatinine 0.8 Glucose 93 Calcium 9.9 Urine 07/14/23 Range/Units 10:09 Urine Color Yellow (Yellow) Urine Appearance Clear (CLEAR) Urine pH 5 (5-7) Ur Specific [place] 1.020 (1.005-1.030) Urine Protein Neg (Negative) Urine Glucose (UA) Norm (Normal) Urine Ketones Negative (Negative) Urine Nitrate Negative (Negative) Urine Bilirubin Neg (Negative) Ur Leukocyte Esterase 1+ H (Negative) Urine RBC 0-4 H (0-2) /hpf Urine WBC 0-4 H (0-5) /hpf Cardiac Studies: 2 Echocardiogram 05/27/23 Echocardiogram Ultrasound 12/23/20 Sestamibi Stress Test (Cardiology) 02/04
[2023-07-18] VITALS (15 sets, daily range): BP systolic 107–132; BP diastolic 56–94; PULSE 88–104; RESP 14–18; TEMP 36.1–37.1; O2SAT 95–100; BMI 25.8; BMI 28.3
--- NOTE | 2023-07-18 07:25 | SC_ITS ---
WS: [id number] EXAMINATION: C-arm [place] for Pacemaker ORDER DATE: 07/18/2023 7:25 AM REASON FOR EXAM: AICD implantation COMPARISON: None available. FLUOROSCOPY TIME: 53.5 seconds. # OF SPOT FILMS: 1 FINDINGS: Pacing device over the left chest. Trans left subclavian vein leads. IMPRESSION: Cardiac pacemaker placement.
[2023-07-18] MEDS: sodium chloride 0.9% 1,000 ML 30 ML IV (07:38)
[2023-07-18 07:52] LABS: Glucose Point of Care 94 mg/dL (70-110)
--- NOTE | 2023-07-18 08:10 | W.PM.OPSUD ---
Surgery/Procedure H&P Update DATE OF PROCEDURE: July 18, 2023 DATE H&P PERFORMED: 07/07/23 H&P UPDATE INFORMATION: I have reviewed H&P completed within last 30 days, I have examined patient prior to procedure and No changes to prior documentation PREOP DIAGNOSIS: Congestive heart failure with cardiomyopathy PLANNED PROCEDURE: Operation Date: 07/18/23 08:45 Proposed Procedures p Defibrillator Placement 55129,I42.8 I50.2(Not Applicable) - Kelvin Chris MD
--- NOTE | 2023-07-18 08:22 | P.ANESUD_ITS ---
Pre-Anesthetic Update Pre-Anesthetic Assessment: Date of Surgery/Procedure: 07/18/23 Preop Marisol gnosis: Congestive heart failure with cardiomyopathy Proposed Procedure: Operation Date: 07/18/23 08:45 Proposed Procedures p Defibrillator Placement 24165,I42.8 I50.2(Not Applicable) - Kelvin Chris MD Any changes to Pre-Anesthetic Assessment?: No Last Intake: Intake Last Liquid Date 07/17/23 Last Liquid Time 18:00 Last Solid Date 07/17/23 Last Solid Time 18:00 Vitals: Temperature 97.8 F 07/18/23 07:33 Pulse Rate 89 07/18/23 07:33 Respiratory Rate 18 07/18/23 07:33 Blood Pressure 124/86 07/18/23 07:33 Blood Pressure Radha n 98 07/18/23 07:33 Pulse Oximetry 99 07/18/23 07:33 Oxygen Delivery Me thod Room Air 07/18/23 07:33 Exam: Pre-Anes Outpt Exam: alert, oriented x 3, clear to auscultation bilaterally and regular rate & rhythm Cardiac Studies: Echocardiogram 05/27/23 Echocardiogram Ultrasound 12/23/20 Sestamibi Stress Test (Cardiology) 02/04
[2023-07-18] MEDS: ceFAZolin 2,000 MG in sodium chloride 0.9% (plus) 50 ML 100 MG IV ×2 (08:40→18:06)
[2023-07-18] MEDS: lidocaine 1% INJ 10 mL (per mL) 20 ML XX (09:10)
[2023-07-18] MEDS: ceFAZolin 1,000 mg SDV 1000 MG IRRIGATION (09:27)
--- NOTE | 2023-07-18 10:09 | XRR_ITS ---
PROCEDURE INFORMATION: Exam: XR Chest Exam date and time: 07/18/2023 10:27 AM Age: 68 years old Clinical indication: Device placement; Cardiac defibrillator lead placement or adjustment; Prior surgery; Surgery date: Post-operative (0-2 days); Surgery type: Post op defib placement; Patient HX: HX of right breast cancer, RT lumpectomy TECHNIQUE: Imaging protocol: Radiologic exam of the chest. Views: 1 view. COMPARISON: CT angio chest w abd pel w con 10/16/2022 11:08 PM FINDINGS: Tubes, catheters and devices: Single lead pacemaker/defibrillator. Lungs: Moderate chronic interstitial fibrosis. Mild hypoventilatory changes at the lung bases. Pleural spaces: Unremarkable. No pleural effusion. No pneumothorax. Heart/Mediastinum: See Vasculature finding. Vasculature: Borderline cardiomegaly and uncoiling of the thoracic aorta. Bones/joints: Unremarkable. XR/XR chest 1V portable [id number] IMPRESSION: No acute findings.
--- NOTE | 2023-07-18 10:33 | PM.OP ---
Operative Report Date of procedure: July 18, 2023 Pre-op diagnosis: Schedule of heart failure with medical refractory cardiomyopathy Post-op diagnosis: same Procedure done: Single-lead automatic implantable cardiac defibrillator implantation Implants: Medtronic AICD generator Right ventricular lead Pathology: none sent Surgeon: Kelvin Chris MD Anesthesia: MAC and Local Complications: None: Postprocedure chest x-ray pending Condition: stable Disposition: PACU Brief History: Ms. Matthews is a pleasant 68-year-old female with medical refractory cardiomyopathy and congestive heart failure has been referred to our service for AICD implantation. Most recent echocardiogram performed in May revealed an ejection fraction of 20%. She has shown progressive ventricular dysfunction over the past 3 years. She has previously worn a LifeVest and despite maximization, her ejection fraction remains quite low. Details, risk, and rationale for AICD implantation were carefully and frankly discussed with her and her . All questions were answered. They wish to proceed. Proper consents have been reviewed and signed. Procedure: Procedure: Ms. Matthews was taken to the OR suite and placed in the supine position over a shoulder roll. She received conscious sedation with continuous anesthesia monitoring by. Her entire chest was sterilely prepped and draped. Appropriate timeout was completed and confirmed by all operative team members present. 1% lidocaine was infiltrated in the left subclavicular region. While in Trendelenburg position, utilizing modified seldinger technique, a guidewire was placed in the left subclavian vein. This was confirmed in position by fluoroscopy. Next, after infiltration with lidocaine, a subcutaneous pocket was created beginning from the exit point of the guidewire and extending laterally and inferiorly. Cautery was utilized to create the pocket just above the pectoralis musculature. Hemostasis was confirmed. An antibiotic-soaked sponge was placed in the wound. A dilator and tear-away sheath was placed over the guidewire and advanced under fluoroscopy. Guidewire and dilator were removed. Next using a combination of curved and straight stylettes, the right ventricular lead was placed in position by fluoroscopy. The distal screw was extended. Interrogation was then performed confirming appropriate parameters. The tear-away sheath was then removed and the ventricular lead was sewn to the floor of the subcutaneous pocket. Generator was brought into the field, and after confirmation of hemostasis in the subcutaneous pocket, the lead was connected to the generator with appropriate capture. The entire system was interrogated by fluoroscopy. Lead and generator were secured in the pocket. Sponge and needle count was correct. The wound was then closed in 2 layers of 3-0 Vicryl suture. Skin was reapproximated in a subcuticular manner with 4-0 Monocryl suture. A pressure dressing was applied. The left arm was placed in a sling. Ms. Matthews had equal breath sounds bilaterally. She was then transferred to the PACU, where chest x-ray is currently pending. I did middle school guidance counselor with the family at the completion of the procedure. Following are the specifics of this system: Right ventricular lead is 62 cm and model [id number]. Serial number [id number] Ventricular lead had sensing of 16.1 mV with an impedance of 946 ohms. Threshold was 0.8 V Rebel Monkey AICD generator: Model # [id number] Serial #[id number]
--- NOTE | 2023-07-18 10:45 | ANE.PACU2 ---
Inpatient post-anesthesia follow up: Airway intact: Yes Vital signs: Temperature 97.6 F Pulse Rate 96 Respiratory Rate 16 Blood Pressure 121/94 Pulse Oximetry 100 Oxygen Delivery Me thod Room Air Oxygen Flow Rate 6 Fraction of Inspir ed Oxygen Hydration adequate: Yes Nausea and vomiting: No Pain level: 1 Mental status: Baseline
[2023-07-18 17:10] LABS: Glucose Point of Care 103 mg/dL (70-110)
[2023-07-18] MEDS: HYDROcodone-acetaminophen 5-325 mg Tablet 1 TAB PO (18:05)
[2023-07-18] MEDS: potassium chloride ER 20 mEq Tablet PO (18:05)
[2023-07-18 20:35] LABS: Glucose Point of Care 127 mg/dL (70-110)
[2023-07-19] VITALS: BP 116/77; PULSE 82; RESP 18; TEMP 36.8; O2SAT 97
[2023-07-19] MEDS: ceFAZolin 2,000 MG in sodium chloride 0.9% (plus) 50 ML 100 MG IV ×2 (00:23→07:24)
[2023-07-19] MEDS: HYDROcodone-acetaminophen 5-325 mg Tablet 1 TAB PO (00:26)
[2023-07-19 04:00] VITALS: BP 111/75; PULSE 81; RESP 16; TEMP 36.8; O2SAT 97
--- NOTE | 2023-07-19 04:18 | PC.NURSE ---
interrogated AICD device at 0412. Soldering Machine Operator Helper called at 0420, stated that device did not detect any problems and the device is functioning properly.
--- NOTE | 2023-07-19 06:05 | P.DS_ITS ---
Discharge Providers Date of Admission: 07/18/23 09:54 Date of Discharge: July 19, 2023 Attending Provider at Admission: Kelvin Chris MD Attending Provider at Discharge: Kelvin Chris MD Primary Care Provider: Kel Escobar MD Diagnoses at Discharge Discharge Diagnosis (1) CHF (congestive heart failure): Status: Acute Qualifiers: Heart failure type: combined systolic and diastolic Heart failure chronicity: chronic Qualified Code(s): I50.42 - Chronic combined systolic (congestive) and diastolic (congestive) heart failure Reason for Visit Reason for Visit: I42.8 Brief History: Ms. Matthews is a 68-year-old female referred to our service for to consider defibrillator implantation related to congestive heart failure with medically refractory cardiomyopathy and documented ejection fraction of between 10 and 20%. She underwent careful outpatient evaluation prior to recommendations. Details and risk of the procedure were Frankly discussed. She wished to proceed. Hospital Course Hospital Course Ms. Matthews was electively admitted on July 18 and underwent single-lead Medtronic AICD implantation. Postoperatively, she convalesced on the medical/surgical ibarra where she continues to do well. Device interrogation on the morning of postop day #1 reveals appropriate function. Postop discomfort has been under good control. Surgical dressings are clean and dry and outer dressing was removed. She is tolerating a diet well. She is eager for discharge home. At the time of discharge, she is in stable condition. Physical Exam Chest: COMMONS NORMALS: normal inspection of the chest and normal palpation of entire chest wall OTHER: And her surgical dressing is clean and dry. No erythema or substantial ecchymosis. No evidence for fluid collection. Resp: COMMON NORMALS: normal respiratory effort and clear to auscultation bilaterally AUSCULTATION: clear to auscultation bilaterally Cardio: COMMON NORMALS: regular rate, regular rhythm, S1 normal heart sound present and No murmurs present (Cardio) RATE: regular rate RHYTHM: regular rhythm HEART SOUNDS: S1 normal heart sound present Extremity: COMMON NORMALS: no clubbing, cyanosis or edema Discharge Data Studies Completed and Pending Completed Studies During Hospitalization Category Date Time Status XR chest 1V portable [id number] Routine Exams 07/18/23 10:09 Completed Radiology Impressions Chest X-Ray 07/18/23 10:09 IMPRESSION: No acute findings. Laboratory Results WBC 7.74 10^3/uL (3.29-11.43) 07/14/23 10:37 RBC 4.13 10^6/uL (3.85-5.65) 07/14/23 10:37 Hgb 12.90 g/dL (11.27-16.99) 07/14/23 10:37 Hct 38.9 % (36-47) 07/14/23 10:37 MCV 94.2 fl (85-98) 07/14/23 10:37 MCH 31.2 pg (27-33) 07/14/23 10:37 MCHC 33.2 g/dL (30-55) 07/14/23 10:37 RDW 13.8 % (12.1-15.1) 07/14/23 10:37 Plt Count 192 10^3/cmm (157-399) 07/14/23 10:37 MPV 10.5 fL (7.4-10.4) H 07/14/23 10:37 Neut % (Auto) 62.2 % 07/14/23 10:37 Lymph % (Auto) 24.4 % 07/14/23 10:37 [place] % (Auto) 9.4 % 07/14/23 10:37 Eos % (Auto) 3.1 % 07/14/23 10:37 Baso % (Auto) 0.6 % 07/14/23 10:37 Neut # (Auto) 4.81 10^3/uL (1.8-7.7) 07/14/23 10:37 Lymph # (Auto) 1.9 10^3/uL (0.8-4.8) 07/14/23 10:37 [place] # (Auto) 0.7 10^3/uL (0.2-0.9) 07/14/23 10:37 Eos # (Auto) 0.2 10^3/uL (0.0-0.8) 07/14/23 10:37 Baso # (Auto) 0.1 10^3/uL (0.0-0.1) 07/14/23 10:37 Nucleated RBC % (auto) 0 % 07/14/23 10:37 Nucleated RBCs # 0.0 /100WBC 07/14/23 10:37 Sodium 138 mmol/L (136-145) 07/14/23 10:37 Potassium 4.2 mmol/L (3.5-5.1) 07/14/23 10:37 Chloride 103 mmol/L (98-107) 07/14/23 10:37 Carbon Dioxide 27 mmol/L (22-29) 07/14/23 10:37 Anion Gap 12.2 (5-19) 07/14/23 10:37 BUN 22 mg/dL (8-23) 07/14/23 10:37 Creatinine 0.8 mg/dL (0.5-0.9) 07/14/23 10:37 GFR Calculation 71.5 mL/min (90-130) L 07/14/23 10:37 Glucose 93 mg/dL (65-115) 07/14/23 10:37 POC Glucose 127 mg/dL (70-110) H 07/18/23 20:33 Calculated Osmolality 289 mOsm/kg (285-295) 07/14/23 10:37 Calcium 9.9 mg/dL (8.5-10.5) 07/14/23 10:37 Urine Color Yellow (Yellow) 07/14/23 10:09 Urine Appearance Clear (CLEAR) 07/14/23 10:09 Urine pH 5 (5-7) 07/14/23 10:09 Ur Specific [place] 1.020 (1.005-1.030) 07/14/23 10:09 Urine Protein Neg (Negative) 07/14/23 10:09 Urine Glucose (UA) Norm (Normal) 07/14/23 10:09 Urine Ketones Negative (Negative) 07/14/23 10:09 Urine Blood Neg (Negative) 07/14/23 10:09 Urine Nitrate Negative (Negative) 07/14/23 10:09 Urine Bilirubin Neg (Negative) 07/14/23 10:09 Urine Urobilinogen Norm mg/dL (Negative) 07/14/23 10:09 Ur Leukocyte Esterase 1+ (Negative) H 07/14/23 10:09 Urine RBC 0-4 /hpf (0-2) H 07/14/23 10:09 Urine WBC 0-4 /hpf (0-5) H 07/14/23 10:09 Ur Squamous Epith Cells 0-4 /hpf (0-5) H 07/14/23 10:09 Ur Transition Epith Cell 0-4 /hpf 07/14/23 10:09 Amorphous Sediment Not Reportable 07/14/23 10:09 Urine Bacteria None /hpf (NONE) 07/14/23 10:09 RBC Casts Rare with wbc /lpf 07/14/23 10:09 Urine Mucus None /hpf 07/14/23 10:09 Procedures Performed Single-lead Medtronic AICD implantation on July 18, 2023 Vitals Last Vital Signs Temp 98.2 F 07/19/23 04:00 Pulse 81 07/19/23 04:00 Resp 16 07/19/23 04:00 BP 111/75 07/19/23 04:00 Pulse Ox 97 07/19/23 04:00 O2 Del Method Room Air 07/18/23 16:00 O2 Flow Rate 6 07/18/23 10:21 Discharge Plan Discharge Patient Disposition: Home Condition: Stable Prescriptions: New hydrocodone-acetaminophen 5-325 mg Tablet 1 tab PO Q6H PRN (Reason: Moderate Pain) Qty: 10 0RF cephalexin 500 mg capsule 500 mg PO TID Qty: 6 0RF Continued bumetanide 2 mg tablet 2 mg PO BID potassium chloride 20 mEq tablet extended release 20 meq PO BID glipizide 2.5 mg tablet extended release 24hr 2.5 mg PO DAILY Qty: 30 5RF sertraline 50 mg tablet 50 mg PO DAILY Qty: 30 0RF Rx Instructions: 1/2 tablet daily for 6 days then One daily metformin 500 mg tablet 500 mg PO DAILY Qty: 30 5RF Eliquis 5 mg tablet 5 mg PO BID Qty: 180 3RF amiodarone 200 mg tablet 200 mg PO DAILY Qty: 90 3RF lisinopril 40 mg tablet 40 mg PO DAILY Qty: 30 5RF Discharge Orders: Discharge Order (Routine); Ordered 07/19/23 Ordered By: Kelvin Chris Referrals: [facility] [Provider Group] - 1 week (Pacemaker clinic) Discharge Diet: Usual diet Discharge Activity: Limit activity as instructed Patient Instructions: Opioid Safety Activity Restrictions/Additional Instructions: May remove bandage in 2 days May begin daily showers in 3 days Dry incision carefully after showers. May re-cover if desired to prevent irritation from clothing. No swimming or tub baths x 2 weeks No ointments on incision Report drainage, redness, heat, fever, increased pain, or swelling to clinic Do not raise left hand above level for 1 week No lifting or pulling greater than 10 pounds x 1 week Discharge Attestations Time Spent in Discharge Care*: less than 30 min Specific Discharge Activities: educating patient, documenting/other paperwork and evaluating patient/reviewing data Status at Discharge: Cognitive status at discharge: cognitively intact , Behavioral status at discharge: cooperative , Functional status at discharge: independent ambulation , Overall status at discharge: patient is back to [facility] [place] Quality Metrics Clinical Quality Measures [ No reported AMI, CVA or VTE this stay] Coding Level of Care Code Acute Code for Chg Fwd Diagnoses Chronic combined systolic and diastolic congestive heart failure I50.42 Heart failure type: combined systolic and diastolic Heart failure chronicity: chronic
[2023-07-19 06:36] LABS: Glucose Point of Care 124 mg/dL (70-110)
[2023-07-19] MEDS: potassium chloride ER 20 mEq Tablet PO (07:27)
[2023-07-19] MEDS: pantoprazole DR 40 mg Tablet PO (07:27)
[2023-07-19] MEDS: amiodarone 200 mg Tablet PO (07:27)
[2023-07-19] MEDS: sertraline 50 mg Tablet PO (07:27)
[2023-07-19] MEDS: lisinopril 20 mg Tablet 40 MG PO (07:27)
--- NOTE | 2023-07-19 08:12 | PC.NURSE ---
Discharge delayed due patient needing to receive IV antibiotics before leaving.
[2023-07-19 08:54] VITALS: BP 111/75; PULSE 81; RESP 16; TEMP 36.8; O2SAT 97
== END 2023-07-19 08:55 | disposition home or self-care (01) ==
LOC: OR 07:13 → MEDSURG 07-19 06:01
PROVIDERS: PCP Family Medicine Adult Medicine; Visit Provider Thoracic Surgery (Cardiothoracic Vascular Surgery)
PROC: 0JH608Z Insertion of Defibrillator Generator into Chest Subcutaneous Tissue and Fascia, Open Approach (ICD-10-PCS; CPT 33249; principal; 2023-07-18 08:25)
DX: I42.8 Other cardiomyopathies (principal); I11.0 Hypertensive heart disease with heart failure; I50.42 Chronic combined systolic (congestive) and diastolic (congestive) heart failure; J44.9 Chronic obstructive pulmonary disease, unspecified; I48.91 Unspecified atrial fibrillation; E11.69 Type 2 diabetes mellitus with other specified complication; E78.5 Hyperlipidemia, unspecified; E66.9 Obesity, unspecified; Z68.26 Body mass index [BMI] 26.0-26.9, adult
CPT/HCPCS: 33249; 36415; 36416; 71045; 76000; 80048; 81001; 82962; 85025; C1722; C1777; J0690; J2250; J2704; J3490; J7030

== ENCOUNTER → 2023-07-28 13:22 | Outpatient (BNVA) | payer MEDICARE, MEDICAID, SELFPAY | PROVIDERS: PCP Family Medicine Adult Medicine; Visit Provider Nurse Practitioner Family | DX: I11.0 Hypertensive heart disease with heart failure (principal); I50.9 Heart failure, unspecified; Z95.810 Presence of automatic (implantable) cardiac defibrillator | CPT/HCPCS: 99214 ==

== ENCOUNTER → 2023-08-10 09:17 | Outpatient (BNVA) | payer MEDICARE, MEDICAID, SELFPAY | PROVIDERS: PCP Family Medicine Adult Medicine; Visit Provider Internal Medicine | DX: Z45.02 Encounter for adjustment and management of automatic implantable cardiac defibrillator (principal) | CPT/HCPCS: 93296 ==

== ENCOUNTER → 2023-08-26 09:22 | Outpatient (BNVA) | payer MEDICARE, MEDICAID, SELFPAY | PROVIDERS: PCP Family Medicine Adult Medicine; Visit Provider Internal Medicine Pulmonary Disease | DX: R06.09 Other forms of dyspnea (principal); J45.909 Unspecified asthma, uncomplicated | CPT/HCPCS: 99214 ==

== ENCOUNTER 2023-09-19 01:59 | Emergency (ER) | payer MEDICARE, SELFPAY ==
[2023-09-19] VITALS (8 sets, daily range): BP systolic 121–142; BP diastolic 75–100; PULSE 67–77; RESP 15–24; TEMP 36.4; O2SAT 91–100; BMI 29.2
--- NOTE | 2023-09-19 02:23 | XRR_ITS ---
PROCEDURE INFORMATION: Exam: XR Chest Exam date and time: 09/19/2023 2:33 AM Age: 68 years old Clinical indication: Shortness of breath; Prior surgery; Surgery date: 6+ months; Surgery type: Lumpectomy; Patient HX: C/O SOB. History of breast cancer. TECHNIQUE: Imaging protocol: Radiologic exam of the chest. Views: 1 view. COMPARISON: CR XR chest 1V portable [id number] 07/18/2023 10:27 AM FINDINGS: Lungs: Bibasilar atelectasis or scarring. No focal pneumonia. Pleural spaces: No pneumothorax. No sizeable effusion. Heart/Mediastinum: The heart is large. Left-sided pacing device. Advanced diffuse vascular calcification noted. Bones/joints: Unremarkable. XR/XR chest 1V portable [id number] IMPRESSION: Stable chest from 07/18/2023.
--- NOTE | 2023-09-19 02:27 | W.ED.CHESTPA ---
HPI - Chest Pain General: Chief Complaint: Chest Pain Stated Complaint: SOB Time Seen by Provider: 09/19/23 02:06 History of Present Illness: 68-year-old female with cardiomyopathy, nonischemic. She presents with chest discomfort and shortness of breath. She states it has been present for over an hour. She was trying to go to sleep, and could not due to the pain and shortness of breath. She has not been coughing significantly more. No significant leg swelling. No fever. Associated symptoms: Reports abdominal pain and dyspnea; Deny fever(s), nausea, palpitations or vomiting Review of Systems Const: Denies: fever(s) ENMT: Denies: throat pain Card: Reports: chest pain; Denies: palpitations Resp: Reports: dyspnea; Denies: productive cough or non-productive cough GI: Reports: abdominal pain; Denies: nausea or vomiting [facility] ED PFSH: Medical History CHF (congestive heart failure) PVD (peripheral vascular disease) Nonpalpable pulse Painful and cold lower extremity without pulse with history of revascularization Atrial fibrillation and flutter COPD (chronic obstructive pulmonary disease) PFT 11/30/2021 3 with moderate restriction and no significant response to bronchodilator, Dr. Almeida History of breast cancer Right breast cancer surgery 20+ years ago Hyperlipidemia associated with type 2 diabetes mellitus Diabetes Anxiety about health Obesity (BMI 30.0-34.9) Hypertension Surgical History AICD (automatic cardioverter/defibrillator) present History of embolectomy History of lymph node dissection of right axilla H/O lumpectomy Social History Smoking and tobacco/nicotine status: never used tobacco/nicotine Second hand smoke exposure: No Alcohol intake: never Substance/Drug Use: never Marital status: Number of children: 2 Number of grandchildren: 5 Current occupational status: disabled Physical Exam Const: COMMON NORMALS: no acute distress GENERAL APPEARANCE: cooperative; not ill appearing and not frail appearing HENMT: COMMON NORMALS: normocephalic, atraumatic and Normal external nose present HEAD & SCALP: normocephalic and atraumatic FACE & SINUS: normal facial exam and face symmetric NOSE: Normal external nose present Eye: COMMON NORMALS: Equal, round and reactive pupils present and EOMs intact bilaterally PUPIL: Yes Equal, round and reactive pupils present Neck/C-Spine: GENERAL: Yes trachea midline Chest: CHEST: Yes Symmetrical chest wall rise Resp: COMMON NORMALS: normal respiratory effort, No retractions, No use of accessory muscles and clear to auscultation bilaterally AUSCULTATION: clear to auscultation bilaterally Cardio: COMMON NORMALS: regular rate and regular rhythm RATE: regular rate RHYTHM: regular rhythm GI: COMMON NORMALS: Normal to inspection, nondistended, normoactive bowel sounds present PALPATION: Yes Tenderness to palpation present (GI) (Epigastric) Extremity: COMMON NORMALS: no pedal edema Neuro: MELINDA COMA SCALE: document GCS findings [place] coma scale eye opening: Spontaneous [place] coma scale verbal response: Orientated Melinda coma scale motor response: Obey commands Melinda coma scale total score: 15 SENSORY EXAM: Yes extremities (intact) Psych: COMMON NORMALS: speech normal SPEECH: Yes normal speech Skin: COMMON NORMALS: no rashes or lesions noted GENERAL SKIN EXAM: no rashes or lesions noted Course Vital Signs: Vital signs: Vital Signs Temperature 97.5 F L 09/19/23 01:59 Pulse Rate 73 09/19/23 05:52 Respiratory Rate 18 09/19/23 05:52 Blood Pressure 121/85 09/19/23 05:52 Pulse Oximetry 92 09/19/23 05:52 Oxygen Delivery Me thod Room Air 09/19/23 05:38 Oxygen Flow Rate 2 09/19/23 03:39 MDM - Chest Pain Medical Decision Making 68-year-old female with a history of heart failure, last EF 20%. She presents with progressive shortness of breath, and chest discomfort. Pain is improved after morphine. She is now off of oxygen satting 94%. She is given 80 mg of Lasix. Blood pressure is 127 systolic. X-ray shows pulmonary edema. BNP is 6000. First troponin is 17. This is essentially near her baseline. Other laboratory not terribly remarkable. Delta troponin is normal. She is feeling improved after diuresis here and wishes to go home. She is breathing room air, in no distress, and has no signs of ACS here, so will allow home. she should continue to diurese and improve. she knows to return for worsening symptoms. Lab Data 09/19/23 02:13 09/19/23 02:13 Radiology Impressions Chest X-Ray 09/19/23 02:23 IMPRESSION: Stable chest from 07/18/2023. Laboratory Results WBC 9.55 10^3/uL (3.29-11.43) 09/19/23 02:13 RBC 5.44 10^6/uL (3.85-5.65) 09/19/23 02:13 Hgb 16.20 g/dL (11.27-16.99) 09/19/23 02:13 Hct 52.8 % (36-47) H 09/19/23 02:13 MCV 97.1 fl (85-98) 09/19/23 02:13 MCH 29.8 pg (27-33) 09/19/23 02:13 MCHC 30.7 g/dL (30-55) 09/19/23 02:13 RDW 15.4 % (12.1-15.1) H 09/19/23 02:13 Plt Count 192 10^3/cmm (157-399) 09/19/23 02:13 MPV 11.0 fL (7.4-10.4) H 09/19/23 02:13 Neut % (Auto) 41.4 % 09/19/23 02:13 Lymph % (Auto) 46.2 % 09/19/23 02:13 [place] % (Auto) 9.6 % 09/19/23 02:13 Eos % (Auto) 1.4 % 09/19/23 02:13 Baso % (Auto) 1.0 % 09/19/23 02:13 Neut # (Auto) 3.95 10^3/uL (1.8-7.7) 09/19/23 02:13 Lymph # (Auto) 4.4 10^3/uL (0.8-4.8) 09/19/23 02:13 [place] # (Auto) 0.9 10^3/uL (0.2-0.9) 09/19/23 02:13 Eos # (Auto) 0.1 10^3/uL (0.0-0.8) 09/19/23 02:13 Baso # (Auto) 0.1 10^3/uL (0.0-0.1) 09/19/23 02:13 Nucleated RBC % (auto) 0 % 09/19/23 02:13 Nucleated RBCs # 0.0 /100WBC 09/19/23 02:13 PT 18.50 SECONDS (12.1-14.9) H 09/19/23 02:13 INR 1.49 (0.8-1.2) H 09/19/23 02:13 APTT 31.5 SECONDS (23.9-36.7) 09/19/23 02:13 Sodium 139 mmol/L (136-145) 09/19/23 02:13 Potassium 4.9 mmol/L (3.5-5.1) 09/19/23 02:13 Chloride 103 mmol/L (98-107) 09/19/23 02:13 Carbon Dioxide 21 mmol/L (22-29) L 09/19/23 02:13 Anion Gap 19.9 (5-19) H 09/19/23 02:13 BUN 20 mg/dL (8-23) 09/19/23 02:13 Creatinine 0.9 mg/dL (0.5-0.9) 09/19/23 02:13 GFR Calculation 62.5 mL/min (90-130) L 09/19/23 02:13 Glucose 134 mg/dL (65-115) H 09/19/23 02:13 Calculated Osmolality 293 mOsm/kg (285-295) 09/19/23 02:13 Calcium 9.5 mg/dL (8.5-10.5) 09/19/23 02:13 Total Bilirubin 1.0 mg/dL (0.15-1.2) 09/19/23 02:13 AST 58 U/L (0-32) H 09/19/23 02:13 ALT 74 U/L (0-33) H 09/19/23 02:13 Alkaline Phosphatase 211 U/L (35-105) H 09/19/23 02:13 Troponin T Baseline 17 ng/L (0-10) H 09/19/23 02:13 Troponin T 120 Minute 14.49 ng/L (0-10) H 09/19/23 04:34 Delta Troponin T -2.51 ABS# (0-10) L 09/19/23 04:34 NT-Pro-B Natriuret Pep 4061 pg/mL (0-125) H 09/19/23 02:13 Total Protein 6.8 g/dL (6.6-8.7) 09/19/23 02:13 Albumin 3.8 g/dL (3.5-5.2) 09/19/23 02:13 Globulin 3.0 g/dL (1.3-4.6) 09/19/23 02:13 Adenovirus (PCR) Not detected (NOT DETECT) 09/19/23 02:49 C. pneumoniae DNA (PCR) Not detected (NOT DETECT) 09/19/23 02:49 Coronavirus 229E (PCR) Not detected (NOT DETECT) 09/19/23 02:49 Human Metapneumovir PCR Not detected (NOT DETECT) 09/19/23 02:49 Influenza A (H1) PCR Not detected (NOT DETECT) 09/19/23 02:49 Influ A (H1/09) PCR Not detected (NOT DETECT) 09/19/23 02:49 Influenza A (H3) PCR Not detected (NOT DETECT) 09/19/23 02:49 Influenza Type A (PCR) Not detected (NOT DETECT) 09/19/23 02:49 Influenza Type B (PCR) Not detected (NOT DETECT) 09/19/23 02:49 M. pneumoniae (PCR) Not detected (NOT DETECT) 09/19/23 02:49 Parainfluenza 1 (PCR) Not detected (NOT DETECT) 09/19/23 02:49 Parainfluenza 2 (PCR) Not detected (NOT DETECT) 09/19/23 02:49 Parainfluenza 3 (PCR) Not detected (NOT DETECT) 09/19/23 02:49 Parainfluenza 4 (PCR) Not detected (NOT DETECT) 09/19/23 02:49 RSV Type A (PCR) Not detected (NOT DETECT) 09/19/23 02:49 RSV Type B (PCR) Not detected (NOT DETECT) 09/19/23 02:49 Entero/Rhino (PCR) Not detected (NOT DETECT) 09/19/23 02:49 SARS-CoV-2 (PCR) Not detected (NOT DETECT) 09/19/23 02:49 All radiology interpretation(s) finalized by discharge Discharge Plan Discharge Patient Disposition: Home Clinical Impression: Pulmonary edema Condition: Stable Prescriptions: No Action bumetanide 2 mg tablet 2 mg PO BID potassium chloride 20 mEq tablet extended release 20 meq PO BID Qty: 180 1RF glipizide 2.5 mg tablet extended release 24hr 2.5 mg PO DAILY Qty: 30 5RF sertraline 50 mg tablet 50 mg PO DAILY Qty: 30 0RF Rx Instructions: 1/2 tablet daily for 6 days then One daily metformin 500 mg tablet 500 mg PO DAILY Qty: 30 5RF Eliquis 5 mg tablet 5 mg PO BID Qty: 180 3RF amiodarone 200 mg tablet 200 mg PO DAILY Qty: 90 3RF lisinopril 40 mg tablet 40 mg PO DAILY Qty: 30 5RF montelukast 10 mg tablet See Rx Instructions .ROUTE .COMPLEX Qty: 30 5RF Dose Instruction: TAKE ONE TABLET BY MOUTH DAILY FOR BREATHING Rx Instructions: TAKE ONE TABLET BY MOUTH DAILY FOR BREATHING budesonide-formoterol 80-4.5 mcg/actuation HFA aerosol inhaler 2 puff inhalation BID Qty: 10.2 6RF hydrocodone-acetaminophen 5-325 mg Tablet 1 tab PO Q6H PRN (Reason: Moderate Pain) Qty: 10 0RF Discharge Orders: Discharge ED (Routine); Ordered 09/19/23 Ordered By: New Bassett Referrals: Kel Escobar MD [Primary Care Provider] - 4-7 days Patient Instructions: Pulmonary Edema (ED), Opioid Safety, Pain Management Activity Restrictions/Additional Instructions: Return for worsening chest pain, shortness of breath, fever, cough, vomiting, any other concerning symptoms. Call your doctor today. See them this week. Coding Level of Care Code ED Water Pump Operator for Arias Davis
[2023-09-19 02:35] LABS: Basophils # 0.1 10^3/uL (0.0-0.1); Eosinophils # 0.1 10^3/uL (0.0-0.8); Eosinophils % 1.4 %; Hematocrit 52.8 % (36-47); Lymphocytes # 4.4 10^3/uL (0.8-4.8); Lymphocytes % 46.2 %; Mean Corpuscular HGB Conc 30.7 g/dL (30-55); Mean Corpuscular Hemoglobin 29.8 pg (27-33); Mean Corpuscular Volume 97.1 fl (85-98); Monocytes # 0.9 10^3/uL (0.2-0.9); Monocytes % 9.6 %; Neutrophils # 3.95 10^3/uL (1.8-7.7); Neutrophils % 41.4 %; Nucleated Red Blood Cells % 0 %; Platelet Count 192 10^3/cmm (157-399); Red Blood Count 5.44 10^6/uL (3.85-5.65); Red Cell Distribution Width 15.4 % (12.1-15.1); White Blood Count 9.55 10^3/uL (3.29-11.43)
[2023-09-19 02:40] LABS: INR 1.49 (0.8-1.2)
[2023-09-19] MEDS: lidocaine 2% viscous 15 ML, aluminum-mag hydrox-simethicon 30 ML, sucralfate oral liq 1 GM PO (02:40)
[2023-09-19] MEDS: morphine 4 mg/mL SDV 1 mL IVP (02:40)
[2023-09-19] MEDS: ondansetron 2 mg/ML SDV 2 mL 4 MG IVP (02:40)
[2023-09-19 02:41] LABS: Partial Thromboplastin Time 31.5 SECONDS (23.9-36.7)
[2023-09-19 02:50] LABS: Troponin(5th) Baseline 17 ng/L (0-10)
[2023-09-19 02:57] LABS: Alanine Aminotransferase 74 U/L (0-33); Albumin Level 3.8 g/dL (3.5-5.2); Alkaline Phosphatase 211 U/L (35-105); Anion Gap 19.9 (5-19); Aspartate Amino Transferase 58 U/L (0-32); Blood Urea Nitrogen 20 mg/dL (8-23); Calcium 9.5 mg/dL (8.5-10.5); Carbon Dioxide 21 mmol/L (22-29); Chloride 103 mmol/L (98-107); Creatinine Clr Calc Pharmacy 65.5164; Glomerular Filtration Rate 62.5 mL/min (90-130); Glucose 134 mg/dL (65-115); NT Pro B Type Natriuretic Pept 4061 pg/mL (0-125); Osmolality Calculated 293 mOsm/kg (285-295); Potassium 4.9 mmol/L (3.5-5.1); Sodium 139 mmol/L (136-145); Total Protein 6.8 g/dL (6.6-8.7)
[2023-09-19] MEDS: FUROsemide 10 mg/mL SDV 10mL 80 MG IVP (03:42)
[2023-09-19 04:41] LABS: Adenovirus Not Detected (NOT DETECT); Chlamydia Pneumoniae Not Detected (NOT DETECT); Coronavirus 229E,HKU1,NL63,OC4 Not Detected (NOT DETECT); Human Metapneumovirus Not Detected (NOT DETECT); Human Rhinovirus/Enterovirus Not Detected (NOT DETECT); Influenza A Not Detected (NOT DETECT); Influenza A H1 Not Detected (NOT DETECT); Influenza A H1-2009 Not Detected (NOT DETECT); Influenza A H3 Not Detected (NOT DETECT); Influenza B Not Detected (NOT DETECT); Mycoplasma Pneumoniae Not Detected (NOT DETECT); Parainfluenza Virus Type 1 Not Detected (NOT DETECT); Parainfluenza Virus Type 2 Not Detected (NOT DETECT); Parainfluenza Virus Type 3 Not Detected (NOT DETECT); Parainfluenza Virus Type 4 Not Detected (NOT DETECT); Respiratory Syncytial Virus A Not Detected (NOT DETECT); Respiratory Syncytial Virus B Not Detected (NOT DETECT); SARS-COV-2 Not Detected (NOT DETECT)
[2023-09-19 05:01] LABS: Troponin 5 2HR 14.49 ng/L (0-10)
[2023-09-19 05:02] LABS: Troponin 5 2HR Delta -2.51 ABS# (0-10)
--- NOTE | 2023-09-19 08:23 | ECG_ITS ---
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 Measurements Intervals [place] Rate: 74 P: 67 [place]: 164 QRS: -8 QRSD: 154 T: 125 QT: 459 QTc: 512 Interpretive Statements SINUS RHYTHM LEFT ATRIAL ENLARGEMENT [-0.15mV P-WAVE IN V1/V2] LEFT BUNDLE BRANCH BLOCK [120+ ms QRS DURATION, 80+ ms Q/S IN V1/V2, 85+ ms R IN I/aVL/V5/V6] Compared to ECG 03/28/2023 13:58:31 Left bundle-branch block now present Intraventricular conduction delay no longer present Electronically Signed On 09-19-2023 13:21:10 CDT by Amador Nicolas M.D. [id number]
== END 2023-09-19 05:55 | disposition home or self-care (01) ==
PROVIDERS: Emergency Provider Emergency Medicine; PCP Family Medicine Adult Medicine
DX: J81.1 Chronic pulmonary edema (principal); Z79.84 Long term (current) use of oral hypoglycemic drugs; Z79.01 Long term (current) use of anticoagulants; Z11.52 Encounter for screening for COVID-19; I11.0 Hypertensive heart disease with heart failure; I50.9 Heart failure, unspecified; J44.9 Chronic obstructive pulmonary disease, unspecified; Z85.3 Personal history of malignant neoplasm of breast; E78.5 Hyperlipidemia, unspecified; E11.9 Type 2 diabetes mellitus without complications; Z95.810 Presence of automatic (implantable) cardiac defibrillator
CPT/HCPCS: 71045; 80053; 83880; 84484; 85025; 85610; 85730; 87486; 87581; 87633; 93005; 96374; 96375; 99285; J1940; J2270; J2405

== ENCOUNTER → 2024-01-23 11:05 | Outpatient (BNVA) | payer MEDICARE, SELFPAY | PROVIDERS: PCP Family Medicine Adult Medicine; Visit Provider Nurse Practitioner Family | DX: R09.81 Nasal congestion (principal) | CPT/HCPCS: 87426 ==

== ENCOUNTER → 2024-03-01 10:04 | Outpatient (BNVA) | payer MEDICARE, SELFPAY | PROVIDERS: PCP Family Medicine Adult Medicine; Visit Provider Internal Medicine Critical Care Medicine | DX: R06.09 Other forms of dyspnea (principal); J45.909 Unspecified asthma, uncomplicated | CPT/HCPCS: 99213 ==

== ENCOUNTER 2024-04-11 11:08 | Emergency (ER) | payer MEDICARE, SELFPAY ==
[2024-04-11 11:33] VITALS: BP 122/86; PULSE 70; RESP 18; TEMP 35.8; O2SAT 99; BMI 28.5
--- NOTE | 2024-04-11 11:38 | XRR_ITS ---
PROCEDURE INFORMATION: Exam: XR Chest Exam date and time: 04/11/2024 11:55 AM Age: 68 years old Clinical indication: Dyspnea; Prior surgery; Surgery date: 6+ months; Surgery type: Lumpectomy defib placement; Patient HX: HX of breast cancer TECHNIQUE: Imaging protocol: Radiologic exam of the chest. Views: 1 view. COMPARISON: CR (CHEST, ) 09/19/2023 2:33 AM FINDINGS: Tubes, catheters and devices: Cardiac pacemaker on the left with leads in satisfactory position. Lungs: Unremarkable. No consolidation or mass. Pleural spaces: Unremarkable. No pleural effusion. No pneumothorax. Heart/Mediastinum: Mild cardiomegaly is noted. Bones/joints: Unremarkable. XR/XR chest 1V portable [id number] IMPRESSION: Stable chest
--- NOTE | 2024-04-11 11:38 | ECG_ITS ---
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 Measurements Intervals [place] Rate: 66 P: 64 [place]: 181 QRS: 21 QRSD: 162 T: 177 QT: 503 QTc: 527 Interpretive Statements SINUS RHYTHM LEFT ATRIAL ENLARGEMENT [-0.15mV P-WAVE IN V1/V2] LEFT BUNDLE BRANCH BLOCK [120+ ms QRS DURATION, 80+ ms Q/S IN V1/V2, 85+ ms R IN I/aVL/V5/V6] Compared to ECG 09/19/2023 02:05:06 No significant changes Electronically Signed On 04-11-2024 18:00:11 CDT by Marcos Donaldson M.D. [id number]
[2024-04-11 12:41] LABS: Basophils # 0.1 10^3/uL (0.0-0.1); Eosinophils % 0.8 %; Hematocrit 52.5 % (36-47); Mean Corpuscular HGB Conc 31.4 g/dL (30-55); Mean Corpuscular Volume 92.4 fl (85-98); Mean Platelet Volume 10.8 fL (7.4-10.4); Monocytes # 0.4 10^3/uL (0.2-0.9); Monocytes % 8.2 %; Neutrophils # 2.33 10^3/uL (1.8-7.7); Neutrophils % 48.8 %; Nucleated Red Blood Cells % 0 %; Platelet Count 182 10^3/cmm (157-399); Red Blood Count 5.68 10^6/uL (3.85-5.65); Red Cell Distribution Width 18.3 % (12.1-15.1); White Blood Count 4.78 10^3/uL (3.29-11.43)
--- NOTE | 2024-04-11 12:58 | ED_ITS ---
HPI - SOB/Dyspnea 2 General: Chief Complaint: Shortness of Breath/Dyspnea Stated Complaint: SOB Time Seen by Provider: 04/11/24 12:50 History of Present Illness: HPI Narrative: Presents to the ER with complaints of shortness of breath and fluid buildup. Patient takes 40 mg Lasix at home which was recently bumped up from 20 mg. Patient states when she ambulates she cannot catch her breath. Patient is not on oxygen. Patient does have a history of CHF. Patient was seen in the walk-in clinic 2 days ago this may bump her Lasix up to twice a day they said she gained 13 pounds over the last week. Related Data Home Medications Medication Instructions Recorded Confirmed furosemide 20 mg tablet 20 mg PO DAILY 04/09/24 04/11/24 Previous Rx's Medication Instructions Recorded sertraline 50 mg tablet 50 mg PO DAILY mental health #30 09/22/22 tabs amiodarone 200 mg tablet 200 mg PO DAILY #90 tabs 05/12/23 apixaban 5 mg tablet (Eliquis) 5 mg PO BID #180 tabs 05/12/23 metformin 500 mg tablet 500 mg PO DAILY Glucose control 10/13/23 #90 tabs potassium chloride 20 mEq 20 meq PO BID #180 tabs 01/02/24 tablet,extended release metolazone 5 mg tablet 5 mg PO DAILY #5 tabs 04/11/24 Allergies Allergy/AdvReac Type Severity Reaction Status Date / Time No Known Allergies Allergy Verified 04/09/24 12:56 PFSH ED 2 PFSH: Medical History CHF (congestive heart failure) PVD (peripheral vascular disease) Nonpalpable pulse Painful and cold lower extremity without pulse with history of revascularization Atrial fibrillation and flutter COPD (chronic obstructive pulmonary disease) PFT 11/30/2021 3 with moderate restriction and no significant response to bronchodilator, Dr. Almeida History of breast cancer Right breast cancer surgery 20+ years ago Hyperlipidemia associated with type 2 diabetes mellitus Diabetes Anxiety about health Obesity (BMI 30.0-34.9) Hypertension Surgical History AICD (automatic cardioverter/defibrillator) present History of embolectomy History of lymph node dissection of right axilla H/O lumpectomy Social History Smoking and tobacco/nicotine status: never used tobacco/nicotine Second hand smoke exposure: No Alcohol intake: never Substance/Drug Use: never Marital status: Number of children: 2 Number of grandchildren: 5 Current occupational status: disabled Physical Exam 2 Const: COMMON NORMALS: no acute distress, average body habitus, patient oriented x3, no limitations, healthy appearing, alert and well nourished HENMT: COMMON NORMALS: normocephalic, atraumatic, hearing grossly normal bilaterally, external ears normal, Normal external nose present and moist oral mucous membranes HEAD & SCALP: normocephalic and atraumatic NOSE: Normal external nose present EXTERNAL EAR: Yes external ears normal Neck/C-Spine: COMMON NORMALS: no JVD Chest: COMMONS NORMALS: normal inspection of the chest and normal palpation of entire chest wall Resp: COMMON NORMALS: normal respiratory effort, No retractions, No use of accessory muscles and clear to auscultation bilaterally AUSCULTATION: clear to auscultation bilaterally Cardio: COMMON NORMALS: no JVD, regular rate, regular rhythm, S1 normal heart sound present, S2 normal heart sound present, No gallops present (Cardio), No clicks present (Cardio), No murmurs present (Cardio) and No rub (Cardio) R ATE: regular rate RHYTHM: regular rhythm HEART SOUNDS: S1 normal heart sound present and S2 normal heart sound present GI: COMMON NORMALS: Normal to inspection, nondistended, normoactive bowel sounds present, Soft to palpation, non-tender, No hepatosplenomegaly present and no masses PALPATION: Yes Soft to palpation and Yes No hepatosplenomegaly present Extremity: NARRATIVE EXTREMITY EXAM: 1-2+ pitting edema bilateral lower extre mities Neuro: COMMON NORMALS: patient oriented x3 SENSORIUM/ORIENTATION: Yes alert Course 2 Vital Signs: Vital signs: Vital Signs Temperature 96.5 F L 04/11/24 11:33 Pulse Rate 64 04/11/24 13:44 Respiratory Rate 18 04/11/24 11:33 Blood Pressure 118/88 04/11/24 13:44 Pulse Oximetry 96 04/11/24 13:44 Oxygen Delivery Me thod Room Air 04/11/24 13:44 MDM - SOB/Dyspnea Medical Decision Making Lab work in ER was performed CBC CMP troponin BNP, all essentially benign except BNP elevated at 5133, chest x-ray is read off a stable chest, patient was given 40 mg Lasix IM. Patient be sent home with her standard dose of Lasix and in addition to that we will add metolazone 5 mg daily for the next 5 days. Patient has follow-up with her PCP after this time period. Medical Records I reviewed the patient's medical records. Lab Data I reviewed the patient's lab results. 04/11/24 12:31 04/11/24 12:31 Labs/Radiology: Radiology Impressions Chest X-Ray 04/11/24 11:38 IMPRESSION: Stable chest Laboratory Results WBC 4.78 10^3/uL (3.29-11.43) 04/11/24 12: RBC 5.68 10^6/uL (3.85-5.65) H 04/11/24 12:31 Hgb 16.50 g/dL (11.27-16.99) 04/11/24 12:31 Hct 52.5 % (36-47) H 04/11/24 12:31 MCV 92.4 fl (85-98) 04/11/24 12: MCH 29.0 pg (27-33) 04/11/24 12:31 MCHC 31.4 g/dL (30-55) 04/11/24 12: RDW 18.3 % (12.1-15.1) H 04/11/24 12:31 Plt Count 182 10^3/cmm (157-399) 04/11/24 12:31 MPV 10.8 fL (7.4-10.4) H 04/11/24 12:31 Neut % (Auto) 48.8 % 04/11/24 12:31 Lymph % (Auto) 41.0 % 04/11/24 12:31 [place] % (Auto) 8.2 % 04/11/24 12: Eos % (Auto) 0.8 % 04/11/24 12:31 Baso % (Auto) 1.0 % 04/11/24 12:31 Neut # (Auto) 2.33 10^3/uL (1.8-7.7) 04/11/24 12:31 Lymph # (Auto) 2.0 10^3/uL (0.8-4.8) 04/11/24 12:31 [place] # (Auto) 0.4 10^3/uL (0.2-0.9) 04/11/24 12:31 Eos # (Auto) 0.0 10^3/uL (0.0-0.8) 04/11/24 12:31 Baso # (Auto) 0.1 10^3/uL (0.0-0.1) 04/11/24 12:31 Nucleated RBC % (auto) 0 % 04/11/24 12:31 Nucleated RBCs # 0.0 /100WBC 04/11/24 12:31 Sodium 138 mmol/L (136-145) 04/11/24 12:31 Potassium 5.1 mmol/L (3.5-5.1) 04/11/24 12: Chloride 104 mmol/L (98-107) 04/11/24 12:31 Carbon Dioxide 24 mmol/L (22-29) 04/11/24 12:31 Anion Gap 15.1 (5-19) 04/11/24 12:31 BUN 19 mg/dL (8-23) 04/11/24 12:31 Creatinine 1.1 mg/dL (0.5-0.9) H 04/11/24 12:31 GFR Calculation 49.5 mL/min (90-130) L 04/11/24 12:31 Glucose 80 mg/dL (65-115) 04/11/24 12:31 Calculated Osmolality 287 mOsm/kg (285-295) 04/11/24 12:31 Calcium 9.6 mg/dL (8.5-10.5) 04/11/24 12:31 Total Bilirubin 1.5 mg/dL (0.15-1.2) H 04/11/24 12:31 AST 23 U/L (0-32) 04/11/24 12:31 ALT 16 U/L (0-33) 04/11/24 12:31 Alkaline Phosphatase 139 U/L (35-105) H 04/11/24 12:31 Troponin T Baseline 17 ng/L (0-10) H 04/11/24 12:31 NT-Pro-B Natriuret Pep 5133 pg/mL (0-125) H 04/11/24 12:31 Total Protein 6.5 g/dL (6.6-8.7) L 04/11/24 12:31 Albumin 3.7 g/dL (3.5-5.2) 04/11/24 12:31 Globulin 2.8 g/dL (1.3-4.6) 04/11/24 12:31 All radiology interpretation(s) finalized by discharge Discharge Plan Discharge Patient Disposition: Home Clinical Impression: CHF (congestive heart failure) Qualifiers: Heart failure type: combined systolic and diastolic Heart failure chronicity: c hronic Qualified Code(s): I50.42 - Chronic combined systolic (congestive) and diastolic (congestive) heart failure Condition: Stable Prescriptions: New metolazone 5 mg tablet 5 mg PO DAILY Qty: 5 0RF No Action furosemide 20 mg tablet 20 mg PO DAILY sertraline 50 mg tablet 50 mg PO DAILY Qty: 30 0RF Rx Instructions: 1/2 tablet daily for 6 days then One daily Eliquis 5 mg tablet 5 mg PO BID Qty: 180 3RF amiodarone 200 mg tablet 200 mg PO DAILY Qty: 90 3RF metformin 500 mg tablet 500 mg PO DAILY Qty: 90 1RF potassium chloride 20 mEq tablet extended release 20 meq PO BID Qty: 180 1RF Discharge Orders: Discharge ED (Routine); Ordered 04/11/24 Ordered By: Haseeb Bernal Referrals: Kel Escobar MD [Primary Care Provider] - 1 week Patient Instructions: Leg Edema (ED), Heart Failure (ED) Activity Restrictions/Additional Instructions: A prescription for metolazone has been called into your pharmacy. This is 1 pill once a day for the next 5 days. This is in addition to your normal dose of Lasix. Please follow-up with your family practice doctor after you finish this round of treatment. Coding Level of Care Code ED Greenhouse Transplanter for Arias Davis
[2024-04-11 13:03] LABS: Troponin(5th) Baseline 17 ng/L (0-10)
[2024-04-11 13:15] LABS: Alanine Aminotransferase 16 U/L (0-33); Albumin Level 3.7 g/dL (3.5-5.2); Alkaline Phosphatase 139 U/L (35-105); Anion Gap 15.1 (5-19); Aspartate Amino Transferase 23 U/L (0-32); Blood Urea Nitrogen 19 mg/dL (8-23); Calcium 9.6 mg/dL (8.5-10.5); Carbon Dioxide 24 mmol/L (22-29); Chloride 104 mmol/L (98-107); Globulin 2.8 g/dL (1.3-4.6); Glomerular Filtration Rate 49.5 mL/min (90-130); Glucose 80 mg/dL (65-115); NT Pro B Type Natriuretic Pept 5133 pg/mL (0-125); Osmolality Calculated 287 mOsm/kg (285-295); Potassium 5.1 mmol/L (3.5-5.1); Sodium 138 mmol/L (136-145); Total Bilirubin 1.5 mg/dL (0.15-1.2); Total Protein 6.5 g/dL (6.6-8.7)
[2024-04-11 13:19] LABS: Creatinine Clr Calc Pharmacy 53.0358
[2024-04-11] MEDS: FUROsemide 10 mg/mL SDV 4mL 40 MG IM (13:40)
[2024-04-11 13:44] VITALS: BP 118/88; PULSE 64; O2SAT 96
[2024-04-11 14:00] VITALS: BP 124/77; PULSE 62; O2SAT 97
[2024-04-11 14:45] VITALS: BP 125/89; PULSE 62; O2SAT 96
--- NOTE | 2024-04-11 17:38 | ECG_ITS ---
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 Measurements Intervals [place] Rate: 60 P: 60 [place]: 192 QRS: 26 QRSD: 157 T: 199 QT: 534 QTc: 536 Interpretive Statements SINUS RHYTHM LEFT ATRIAL ENLARGEMENT [-0.15mV P-WAVE IN V1/V2] LEFT BUNDLE BRANCH BLOCK [120+ ms QRS DURATION, 80+ ms Q/S IN V1/V2, 85+ ms R IN I/aVL/V5/V6] Compared to ECG 04/11/2024 12:49:18 No significant changes Electronically Signed On 04-11-2024 17:07:01 CDT by Marcos Donaldson M.D. [id number]
== END 2024-04-11 14:40 | disposition home or self-care (01) ==
PROVIDERS: Emergency Provider Emergency Medicine; PCP Family Medicine Adult Medicine
DX: I11.0 Hypertensive heart disease with heart failure (principal); I50.42 Chronic combined systolic (congestive) and diastolic (congestive) heart failure; E11.9 Type 2 diabetes mellitus without complications; J44.9 Chronic obstructive pulmonary disease, unspecified; Z79.01 Long term (current) use of anticoagulants; Z79.84 Long term (current) use of oral hypoglycemic drugs
CPT/HCPCS: 36415; 71045; 80053; 83880; 84484; 85025; 93005; 96372; 99285; J1940

== ENCOUNTER 2024-07-25 06:31 | Emergency (ER) | payer MEDICARE, MEDICAID, SELFPAY ==
[2024-07-25 06:34] VITALS: BP 128/108; PULSE 80; RESP 18; TEMP 37.1; O2SAT 94; BMI 29.0
--- NOTE | 2024-07-25 06:35 | XRR_ITS ---
PROCEDURE INFORMATION: Exam: XR Chest Exam date and time: 07/25/2024 6:41 AM Age: 69 years old Clinical indication: Pain; Chest pressure; Prior surgery; Surgery date: 6+ months; Surgery type: Lumpectomy pacer; Additional info: Chest pain TECHNIQUE: Imaging protocol: Radiologic exam of the chest. Views: 1 view. COMPARISON: CR XR chest 1V portable [id number] 04/11/2024 11:55 AM FINDINGS: Tubes, catheters and devices: Left single lead cardiac device. Lungs: COPD changes. Increased basilar lung markings. Pleural spaces: Unremarkable. No pleural effusion. No pneumothorax. Heart/Mediastinum: Cardiomegaly. Bones/joints: Unremarkable. XR/XR chest 1V portable [id number] IMPRESSION: Increased basilar lung markings from prior comparison, likely represent some degree of scarring/atelectasis, difficult to exclude superimposed infection.
--- NOTE | 2024-07-25 06:38 | ECG_ITS ---
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 Measurements Intervals [place] Rate: 81 P: 77 [place]: 178 QRS: 47 QRSD: 159 T: 201 QT: 443 QTc: 516 Interpretive Statements SINUS RHYTHM POSSIBLE RIGHT ATRIAL ENLARGEMENT [0.25mV P-WAVE] POSSIBLE LEFT ATRIAL ENLARGEMENT [-0.1mV P-WAVE IN V1/V2] LEFT BUNDLE BRANCH BLOCK [120+ ms QRS DURATION, 80+ ms Q/S IN V1/V2, 85+ ms R IN I/aVL/V5/V6] Compared to ECG 04/11/2024 13:32:05 No significant changes Electronically Signed On 07-25-2024 17:57:13 FACILITIES MANAGER by Nathalie San M.D. [id number] [id number]
--- NOTE | 2024-07-25 06:41 | W.ED.ABDPA2 ---
HPI - Abdominal Pain General: Chief Complaint: Abdominal Pain Stated Complaint: chest pain, Time Seen by Provider: 07/25/24 06:35 History of Present Illness: 69-year-old female presents emergency room complaining of some mild shortness of breath and right upper quadrant abdominal discomfort woke her up this morning. Denies vomiting or diarrhea Humberto at this urgency or frequency. She does have a history of COPD atrial fibrillation patient has severe cardiomyopathy she has an AICD in place her last measured ejection fraction was 10 to 20%. She denies any chest pain at this time. The stated complaint is listed as chest pain however patient refers all of her pain is right upper quadrant area. Associated Symptoms: Reports nausea; Denies chills, dysuria, fever(s) and vomiting Related Data Home Medications ?Medication ?Instructions ?Recorded ?Confirmed montelukast 10 mg tablet 10 mg PO DAILY 07/25/24 07/25/24 Previous Rx's ?Medication ?Instructions ?Recorded apixaban 5 mg tablet (Eliquis) 5 mg PO BID #180 tabs 05/12/23 potassium chloride 20 mEq 20 meq PO BID #180 tabs 01/02/24 tablet,extended release furosemide 20 mg tablet 20 mg PO BID #180 tabs 04/13/24 metformin 500 mg tablet 500 mg PO DAILY Glucose control 05/01/24 #90 tabs amiodarone 200 mg tablet 200 mg PO DAILY #90 tabs 05/03/24 Allergies Allergy/AdvReac Type Severity Reaction Status Date / Time No Known Allergies Allergy Verified 07/25/24 06:42 Review of Systems Const: Denies: fever(s) or chills Card: Denies: chest pain Resp: Reports: dyspnea GI: Reports: abdominal pain and nausea; Denies: vomiting : Denies: dysuria, urinary frequency or urinary urgency Musc: Denies: neck pain or back pain Skin/Breast: Denies: rash PFSH ED PFSH: Medical History (Updated 07/25/24 @ 12:29 by Jose Kemp DO) CHF (congestive heart failure) EF 20% on echo May 2023 PVD (peripheral vascular disease) Nonpalpable pulse Painful and cold lower extremity without pulse with history of revascularization Atrial fibrillation and flutter COPD (chronic obstructive pulmonary disease) PFT 11/30/2021 3 with moderate restriction and no significant response to bronchodilator, Dr. Almeida History of breast cancer Right breast cancer surgery 20+ years ago Hyperlipidemia associated with type 2 diabetes mellitus Diabetes Anxiety about health Obesity (BMI 30.0-34.9) Hypertension Surgical History (Updated 07/25/24 @ 10:37 by Jose Kemp DO) History of cholecystectomy AICD (automatic cardioverter/defibrillator) present History of embolectomy History of lymph node dissection of right axilla H/O lumpectomy Social History Smoking and tobacco/nicotine status: never used tobacco/nicotine Second hand smoke exposure: No Alcohol intake: never Substance/Drug Use: never Marital status: Number of children: 2 Number of grandchildren: 5 Current occupational status: disabled Physical Exam Const: GENERAL APPEARANCE: cooperative ORIENTATION/CONSCIOUSNESS: Yes awake, Yes oriented to person, Yes oriented to place and Yes oriented to time HENMT: COMMON NORMALS: normocephalic, atraumatic and hearing grossly normal bilaterally HEAD & SCALP: normocephalic and atraumatic Resp: COMMON NORMALS: normal respiratory effort, No retractions, No use of accessory muscles and clear to auscultation bilaterally AUSCULTATION: clear to auscultation bilaterally Cardio: COMMON NORMALS: regular rate, regular rhythm and No murmurs present (Cardio) RATE: regular rate RHYTHM: regular rhythm GI: COMMON NORMALS: Soft to palpation and No hepatosplenomegaly present AUSCULTATION: Yes normoactive bowel sounds PALPATION: Yes Soft to palpation, No Tenderness to palpation present (GI), No Guarding due to palpation present (GI) and Yes No hepatosplenomegaly present Extremity: COMMON NORMALS: normal to inspection, capillary refill normal and no calf tenderness GENERAL: Yes edema (Lower extremities bilaterally) Neuro: SENSORIUM/ORIENTATION: Yes oriented to person, Yes oriented to place and Yes oriented to time Skin: COMMON NORMALS: no rashes or lesions noted GENERAL SKIN EXAM: no rashes or lesions noted Course Vital Signs: Vital signs: Vital Signs Temperature 98.7 F 07/25/24 06:34 Pulse Rate 78 07/25/24 12:47 Respiratory Rate 18 07/25/24 06:34 Blood Pressure 121/82 07/25/24 12:47 Pulse Oximetry 94 07/25/24 12:47 MDM - Abdominal Pain Medical Decision Making Initial CT is a question of portal vein thrombosis radiology asked that we repeat with contrast was repeated with contrast but due to her exceptionally poor ejection fraction and it was indeterminant they then recommended an ultrasound. There is bidirectional flow in the portal vein likely result of her cardiomyopathy but no definitive portal vein thrombosis. Pro-Jac is normal BNP is elevated. She is not requiring any oxygen at this time. Suspect some of her discomfort is from hepatic congestion. No acute emergent findings noted. Will give her a dose of IV Lasix discharge home and have her follow-up with her primary care team within the week. Imaging questions some loop of her lead extending down into her portal vein. Discussed Dr. Chris who initially placed the pacer. It appears the extra lead that was in the pocket of the pacer has migrated into the vascular system and not loops down and around the portal vein. She is on Eliquis for portal vein thrombosis is less likely. We interrogated the pacer and is functional. Dr. Villatoro who is on-call was also consulted Dr. Chris and Dr. Villatoro both felt that the pacer was still functionally working well she could be discharged home and follow-up as an outpatient of the wire readjusted back into the pocket at one of the pacer clinics. I did call Dr. Nicolas's office who she usually sees and talk to his nurse to explain the situation they will make arrangements for referral. Medical Records I reviewed the patient's medical records. Lab Data I reviewed the patient's lab results. 07/25/24 06:40 07/25/24 06:40 Labs/Radiology: Radiology Impressions Chest X-Ray 07/25/24 06:35 IMPRESSION: Increased basilar lung markings from prior comparison, likely represent some degree of scarring/atelectasis, difficult to exclude superimposed infection. Abdomen/Pelvis CT 07/25/24 08:00 IMPRESSION: 1. Recommend ultrasound to evaluate the portal venous system discussed above 2. Hepatomegaly with enlarged RIGHT hepatic lobe. Recommend correlation with liver function tests. 3. Cholecystectomy. 4. Small RIGHT greater than LEFT pleural effusions. 5. Small amount of free fluid in the cul-de-sac likely physiologic. 6. Contrast reflux into the hepatic veins compatible with RIGHT heart dysfunction. Liver Ultrasound 07/25/24 09:18 IMPRESSION: 1. Prior cholecystectomy. 2. No evidence of portal vein thrombosis. 3. Cardiac pacer leads extend into the intrahepatic IVC. Recommend cardiology consultation. 4. Fatty liver Notified Jose Kemp DO at 07/25/2024 10:42 AM. Laboratory Results WBC 8.84 10^3/uL (3.29-11.43) 07/25/24 06:40 RBC 5.55 10^6/uL (3.85-5.65) 07/25/24 06:40 Hgb 17.00 g/dL (11.27-16.99) H 07/25/24 06:40 Hct 54.9 % (36-47) H 07/25/24 06:40 MCV 98.9 fl (85-98) H 07/25/24 06:40 MCH 30.6 pg (27-33) 07/25/24 06:40 MCHC 31.0 g/dL (30-55) 07/25/24 06:40 RDW 18.6 % (12.1-15.1) H 07/25/24 06:40 Plt Count 182 10^3/cmm (157-399) 07/25/24 06:40 MPV 10.1 fL (7.4-10.4) 07/25/24 06:40 Neut % (Auto) 52.7 % 07/25/24 06:40 Lymph % (Auto) 35.4 % 07/25/24 06:40 [place] % (Auto) 9.6 % 07/25/24 06:40 Eos % (Auto) 1.0 % 07/25/24 06:40 Baso % (Auto) 1.0 % 07/25/24 06:40 Neut # (Auto) 4.65 10^3/uL (1.8-7.7) 07/25/24 06:40 Lymph # (Auto) 3.1 10^3/uL (0.8-4.8) 07/25/24 06:40 [place] # (Auto) 0.9 10^3/uL (0.2-0.9) 07/25/24 06:40 Eos # (Auto) 0.1 10^3/uL (0.0-0.8) 07/25/24 06:40 Baso # (Auto) 0.1 10^3/uL (0.0-0.1) 07/25/24 06:40 Nucleated RBC % (auto) 0 % 07/25/24 06:40 Nucleated RBCs # 0.0 /100WBC 07/25/24 06:40 Sodium 139 mmol/L (136-145) 07/25/24 06:40 Potassium 4.5 mmol/L (3.5-5.1) 07/25/24 06:40 Chloride 104 mmol/L (98-107) 07/25/24 06:40 Carbon Dioxide 21 mmol/L (22-29) L 07/25/24 06:40 Anion Gap 18.5 (5-19) 07/25/24 06:40 BUN 20 mg/dL (8-23) 07/25/24 06:40 Creatinine 1.1 mg/dL (0.5-0.9) H 07/25/24 06:40 GFR Calculation 49.4 mL/min (90-130) L 07/25/24 06:40 Glucose 98 mg/dL (65-115) 07/25/24 06:40 Calculated Osmolality 291 mOsm/kg (285-295) 07/25/24 06:40 Calcium 10.0 mg/dL (8.5-10.5) 07/25/24 06:40 Total Bilirubin 1.2 mg/dL (0.15-1.2) 07/25/24 06:40 AST 30 U/L (0-32) 07/25/24 06:40 ALT 20 U/L (0-33) 07/25/24 06:40 Alkaline Phosphatase 150 U/L (35-105) H 07/25/24 06:40 NT-Pro-B Natriuret Pep 6319 pg/mL (0-125) H 07/25/24 06:40 Total Protein 7.3 g/dL (6.6-8.7) 07/25/24 06:40 Albumin 4.0 g/dL (3.5-5.2) 07/25/24 06:40 Globulin 3.3 g/dL (1.3-4.6) 07/25/24 06:40 Lipase 12 U/L (13-60) L 07/25/24 06:40 Procalcitonin 0.04 ng/mL (0-0.5) 07/25/24 06:40 Urine Color Yellow (Yellow) 07/25/24 08:04 Urine Appearance Clear (CLEAR) 07/25/24 08:04 Urine pH 5.0 (5-7) 07/25/24 08:04 Ur Specific [place] 1.013 (1.005-1.030) 07/25/24 08:04 Urine Protein Negative (Negative) 07/25/24 08:04 Urine Glucose (UA) Negative (Normal) 07/25/24 08:04 Urine Ketones Negative (Negative) 07/25/24 08:04 Urine Blood Negative (Negative) 07/25/24 08:04 Urine Nitrate Negative (Negative) 07/25/24 08:04 Urine Bilirubin Negative (Negative) 07/25/24 08:04 Urine Urobilinogen 1.0 mg/dL (Negative) 07/25/24 08:04 Ur Leukocyte Esterase 2+ (Negative) A 07/25/24 08:04 Urine RBC 0-2 /hpf (0-2) 07/25/24 08:04 Urine WBC 6-10 /hpf (0-5) 07/25/24 08:04 Ur Squamous Epith Cells 6-10 /hpf (0-5) 07/25/24 08:04 Amorphous Sediment Not Reportable 07/25/24 08:04 Urine Bacteria 1+ /hpf (NONE) H 07/25/24 08:04 Hyaline Casts 6.61 /lpf 07/25/24 08:04 All radiology interpretation(s) finalized by discharge Discharge Plan Discharge Patient Disposition: Home Clinical Impression: Left ventricular ejection fraction of 10% to 20%, AICD (automatic cardioverter/defibrillator) present, Right upper quadrant abdominal pain, Complication associated with cardiac pacemaker lead Condition: Stable Prescriptions: No Action furosemide 20 mg tablet 20 mg PO BID Qty: 180 0RF Eliquis 5 mg tablet 5 mg PO BID Qty: 180 3RF potassium chloride 20 mEq tablet extended release 20 meq PO BID Qty: 180 1RF metformin 500 mg tablet 500 mg PO DAILY Qty: 90 1RF amiodarone 200 mg tablet 200 mg PO DAILY Qty: 90 3RF montelukast 10 mg tablet 10 mg PO DAILY Discharge Orders: Discharge ED (Routine); Ordered 07/25/24 Ordered By: Jose Kemp Referrals: Kel Escobar MD [Primary Care Provider] - Discharge Diet: Usual diet Discharge Activity: Increase activity as tolerated Patient Instructions: Abdominal Pain (ED), Opioid Safety, Pain Management Activity Restrictions/Additional Instructions: [facility]. It is very important that you follow up as instructed or that you return to the Emergency Department should you have concerns or if your condition changes or worsens in any way. You are seen in the emergency room with complaints of right upper quadrant abdominal pain. Evaluation did not show any acute problems however you do have a lead to that has loosened. The pacemaker is still functional however excess portion of the lead that was in the pacemaker pocket and the chest wall has worked its way into the vascular system and is looping down towards the liver. This should be readjusted. It will need to be done as an outpatient and outpatient pacemaker clinic. Cardiology will refer you to an appropriate doctor for this. Print Language: Congolese Coding Level of Care Code ED Back End Developer for Arias Davis
[2024-07-25 06:49] LABS: Basophils # 0.1 10^3/uL (0.0-0.1); Eosinophils # 0.1 10^3/uL (0.0-0.8); Hematocrit 54.9 % (36-47); Lymphocytes # 3.1 10^3/uL (0.8-4.8); Lymphocytes % 35.4 %; Mean Corpuscular Hemoglobin 30.6 pg (27-33); Mean Corpuscular Volume 98.9 fl (85-98); Mean Platelet Volume 10.1 fL (7.4-10.4); Monocytes # 0.9 10^3/uL (0.2-0.9); Monocytes % 9.6 %; Neutrophils # 4.65 10^3/uL (1.8-7.7); Neutrophils % 52.7 %; Nucleated Red Blood Cells % 0 %; Platelet Count 182 10^3/cmm (157-399); Red Blood Count 5.55 10^6/uL (3.85-5.65); Red Cell Distribution Width 18.6 % (12.1-15.1); White Blood Count 8.84 10^3/uL (3.29-11.43)
--- NOTE | 2024-07-25 06:54 | CTR_ITS ---
PROCEDURE INFORMATION: Exam: CT Abdomen And Pelvis Without Contrast Exam date and time: 07/25/2024 7:11 AM Age: 69 years old Clinical indication: Abdominal pain; Localized; Right; Prior surgery; Surgery date: 6+ months; Surgery type: Pacemaker TECHNIQUE: Imaging protocol: Computed tomography of the abdomen and pelvis without contrast. Radiation optimization: All CT scans at this facility use at least one of these dose optimization techniques: automated exposure control; mA and/or kV adjustment per patient size (includes targeted exams where dose is matched to clinical indication); or iterative reconstruction. COMPARISON: CT angio chest w abd pel w con 10/16/2022 11:08 PM RADIATION DOSE METRICS: Total DLP (mGy-cm): 572.34 FINDINGS: Lungs: Bilateral basilar atelectasis. Pleural spaces: Bilateral pleural effusions, [id number]-left. Heart: Postprocedural changes of the heart base. Liver: Periportal edema seen centrally. Gallbladder and biliary ducts: Status post cholecystectomy. Pancreas: Increasing pancreatic lipomatosis/fatty atrophy from prior comparison. Spleen: Splenic granulomas. Adrenal glands: Normal. No mass. Kidneys and ureters: Normal. No hydronephrosis. Stomach and bowel: Unremarkable. No obstruction. No mucosal thickening. Appendix: No evidence of appendicitis. Intraperitoneal space: Mild amount of perihepatic ascites. Small volume pelvic ascites. Vasculature: Increased attenuation of the portal vein with surrounding periportal edema centrally. Minimal calcified atherosclerotic disease. Lymph nodes: Unremarkable. No enlarged lymph nodes. Urinary bladder: Unremarkable as visualized. Reproductive: Unremarkable as visualized. Bones/joints: Diffuse degenerative change of the visualized osseous structures. Soft tissues: Unremarkable. CT/CT abdomen pelvis con [id number] IMPRESSION: 1. Findings which can be seen in portal vein thrombosis. Recommend cross-sectional evaluation with portal phase contrast. If patient can not receive contrast, recommend ultrasound. Additional considerations include viral pathologies (hepatitis?). 2. Increasing fatty atrophy of the pancreas/lipomatosis. 3. Nonspecific [id number]-nwdk-left pleural effusions.
[2024-07-25 07:04] LABS: Alanine Aminotransferase 20 U/L (0-33); Alkaline Phosphatase 150 U/L (35-105); Anion Gap 18.5 (5-19); Aspartate Amino Transferase 30 U/L (0-32); Blood Urea Nitrogen 20 mg/dL (8-23); Carbon Dioxide 21 mmol/L (22-29); Chloride 104 mmol/L (98-107); Globulin 3.3 g/dL (1.3-4.6); Glomerular Filtration Rate 49.4 mL/min (90-130); Glucose 98 mg/dL (65-115); Lipase 12 U/L (13-60); Osmolality Calculated 291 mOsm/kg (285-295); Potassium 4.5 mmol/L (3.5-5.1); Sodium 139 mmol/L (136-145); Total Bilirubin 1.2 mg/dL (0.15-1.2); Total Protein 7.3 g/dL (6.6-8.7)
--- NOTE | 2024-07-25 08:00 | CT_ITS ---
WS: [id number] CT ABDOMEN PELVIS TECHNIQUE: Contrast-enhanced CT of the abdomen and pelvis with coronal and sagittal reformatted images. CLINICAL INFORMATION: Possible portal vein thrombosis COMPARISON: None. DLP: 576.[address] scans at [facility] use at least one of these dose optimization techniques: automated exposure control; mA and/or kV adjustment per patient size (includes targeted exams where dose is matched to clinical indication); or iterative reconstruction. FINDINGS: Majority of the contrast within the heart and arterial system despite portal venous timing likely due to low cardiac output. Ultrasound will be obtained for interrogation of the portal vein. Small bilateral pleural effusions RIGHT greater than LEFT. Similar appearance of the tyler hepatis with mild periportal edema. Fatty atrophy of the pancreas. Spleen granulomas. Adrenal glands are normal. Normal renal parenchymal enhancement. No hydronephrosis. Hepatic veins and intrahepatic IVC are patent. Normal caliber abdominal aorta. Celiac and SMA are patent. Renal arteries are patent. Hepatomegaly with enlarged on the RIGHT hepatic lobe. Small amount of free fluid in the pelvis likely physiologic. Disc osteophyte complex L3-4 CT/CT abdomen pelvis w con* [id number] IMPRESSION: 1. Recommend ultrasound to evaluate the portal venous system discussed above 2. Hepatomegaly with enlarged RIGHT hepatic lobe. Recommend correlation with l iver function tests. 3. Cholecystectomy. 4. Small RIGHT greater than LEFT pleural effusions. 5. Small amount of free fluid in the cul-de-sac likely physiologic. 6. Contrast reflux into the hepatic veins compatible with RIGHT heart dysfunct ion.
--- NOTE | 2024-07-25 08:01 | PC.PHAR ---
Spouse takes care of pts' medications and states doesn't always do well with it.
[2024-07-25] MEDS: iohexol 350 mg/mL 500 mL Btl (per mL) IV (08:41)
[2024-07-25 08:49] VITALS: BP 126/91; PULSE 79; O2SAT 95
--- NOTE | 2024-07-25 09:18 | US_ITS ---
WS: [id number] ULTRASOUND ABDOMEN LIMITED CLINICAL INFORMATION: Question portal vein thrombosis COMPARISON: None. FINDINGS: Liver Size: Enlarged Craniocaudal length: 18.2 cm. Echogenicity: Fatty infiltration Surface nodularity: None. Mass (size and location): None. Bile ducts Intrahepatic ducts: Normal. Common bile duct diameter: 0.3 cm. Gallbladder Removed Pancreas Normal as visualized. Right kidney: Normal. Hydronephrosis: None. Size: 10.6 cm x 4.6 cm x 4.6 cm. Abdominal aorta and IVC Cardiac pacer leads extending to the intrahepatic IVC. Visualized portions are normal. Ascites: None. US/US liver [id number] IMPRESSION: 1. Prior cholecystectomy. 2. No evidence of portal vein thrombosis. 3. Cardiac pacer leads extend into the intrahepatic IVC. Recommend cardiology consultation. 4. Fatty liver Notified Jose Kemp DO at 07/25/2024 10:42 AM.
[2024-07-25 09:23] LABS: NT Pro B Type Natriuretic Pept 6319 pg/mL (0-125); Procalcitonin 0.04 ng/mL (0-0.5)
[2024-07-25 09:41] LABS: Add Urine Microscopic? YES; Bacteria Urine 1+ /hpf; Bilirubin Urine Negative (Negative); Blood Urine Negative (Negative); Glucose Urine UA Negative (Normal); Hyaline Casts Urine 6.61 /lpf; Ketones Urine Negative (Negative); Leukocyte Esterase Urine 2+ (Negative); Nitrate Urine Negative (Negative); Protein Urine Negative (Negative); RBC Urine 0-2 /hpf (0-2); Specific Gravity, Urine 1.013 (1.005-1.030); Urine Appearance Clear (CLEAR); Urine Color Yellow (Yellow)
[2024-07-25] MEDS: FUROsemide 10 mg/mL SDV 4mL 40 MG IVP (10:37)
[2024-07-25 11:40] VITALS: BP 122/70; PULSE 78; O2SAT 97
[2024-07-25 12:47] VITALS: BP 121/82; PULSE 78; O2SAT 94
== END 2024-07-25 12:48 | disposition home or self-care (01) ==
PROVIDERS: Emergency Provider Family Medicine; PCP Family Medicine Adult Medicine
DX: I11.0 Hypertensive heart disease with heart failure (principal); I50.20 Unspecified systolic (congestive) heart failure; J44.9 Chronic obstructive pulmonary disease, unspecified; E11.9 Type 2 diabetes mellitus without complications; E78.5 Hyperlipidemia, unspecified; R10.11 Right upper quadrant pain; Z95.0 Presence of cardiac pacemaker; T82.129A Displacement of unspecified cardiac electronic device, initial encounter; X58.XXXA Exposure to other specified factors, initial encounter; Z79.01 Long term (current) use of anticoagulants
CPT/HCPCS: 71045; 74176; 74177; 76705; 80053; 81001; 83690; 83880; 84145; 85025; 93005; 96374; 99285; J1940